=== PATIENT | male | born 1935 | race Caucasian/White ===

== ENCOUNTER 2016-08-22 03:25 | Inpatient (IN) | payer MEDICARE, MEDICAID ==
[~2016-08-22] VITALS: Ht 177.8 cm; Wt 99.6 kg
[2016-08-22] MEDS ORDERED: IPRATROPIUM 0.5MG/ALBUTEROL 2.5MG INH SOL UD 3ML (DUONEB)(J7620) As Ordered ONE ×3 (03:59→14:52)
[2016-08-22 04:48] LABS: BASO % 0.4 % (0.0-1.0); EOS # 0.1 K/mm3 (0.0-0.50); EOS % 1.1 % (0.0-3.0); LARGE UNSTAINED CELL # 0.2 K/mm3 (0.0-0.4); LARGE UNSTAINED CELL % 1.9 % (0.0-4.0); LYMPH # 0.9 K/mm3 (1.5-4.5); LYMPH % 8.1 % (24.0-44.0); MEAN CORPUSCULAR HEMOGLOBIN 31.7 pg (27.0-33.0); MEAN CORPUSCULAR HGB CONC 33.9 g/dl (32.0-36.5); MEAN CORPUSCULAR VOLUME 93.5 fl (80.0-96.0); MONO # 0.6 K/mm3 (0.0-0.8); MONO % 6.4 % (0.0-5.0); NEUTROPHILS # 7.6 K/mm3 (1.8-7.7); NEUTROPHILS % 82.2 % (36.0-66.0); PLATELET COUNT, AUTOMATED 166 k/mm3 (150-450); RED CELL DISTRIBUTION WIDTH 12.9 % (11.5-14.5); WHITE BLOOD COUNT 9.2 K/mm3 (4.0-10.0)
[2016-08-22 04:53] LABS: INR 1.01
[2016-08-22] MEDS ORDERED: ATENOLOL 25 MG TAB As Ordered ONE (04:59)
[2016-08-22 05:23] LABS: ANION GAP 9 MEQ/L (8-16); BLOOD UREA NITROGEN 20 MG/DL (7-18); CALCIUM LEVEL 8.3 MG/DL (8.8-10.2); CARBON DIOXIDE LEVEL 29 MEQ/L (21-32); CHLORIDE LEVEL 104 MEQ/L (98-107); CREATININE FOR GFR 1.78 MG/DL (0.70-1.30); GLOMERULAR FILTRATION RATE 39.2 (>35); GLUCOSE, FASTING 111 MG/DL (83-110); SODIUM LEVEL 142 MEQ/L (136-145)
--- NOTE | 2016-08-22 08:42 | REP ---
Clinical: Cough. Technique: AP and lateral. Comparison: 08/04/2011. Findings: Examination is limited by technique. Cardiomegaly cannot be excluded. Subtle bibasilar chronic changes are suggested and subtle superimposed atelectasis cannot be excluded. No definite effusion. No pneumothorax. Skeletal structures demonstrate age-related changes. Impression: Mild chronic stable changes. Cannot exclude trace superimposed atelectasis. Signed by David De Dios MD 08/22/2016 08:34 A
--- NOTE | 2016-08-22 08:46 | ECGEPIP ---
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
[2016-08-22 08:55] LABS: ALBUMIN 3.8 GM/DL (3.2-5.2); ALBUMIN/GLOBULIN RATIO 1.19 (1.00-1.93); ALKALINE PHOSPHATASE 88 U/L (45-117); ALT/SGPT 30 U/L (12-78); AST/SGOT 29 U/L (15-37); BILIRUBIN,DIRECT 0.1 MG/DL (0.0-0.2); BILIRUBIN,TOTAL 0.4 MG/DL (0.2-1.0)
[2016-08-22] MEDS ORDERED: DOXYCYCLINE HYCLATE 100 MG TAB PO SCH (09:00)
[2016-08-22] MEDS ORDERED: predniSONE 20 MG TAB PO SCH (09:00)
[2016-08-22] MEDS ORDERED: ONDANSETRON 4MG/2ML VIAL (J2405) IV PRN (09:30)
[2016-08-22] MEDS ORDERED: ALBUTEROL SULFATE 2.5 MG/0.5 ML INH NEB SOLN NEB PRN (09:30)
[2016-08-22] MEDS ORDERED: BISACODYL 5 MG TAB PO PRN (09:30)
[2016-08-22] MEDS ORDERED: BISACODYL 10 MG SUPP PR PRN (09:30)
[2016-08-22] MEDS ORDERED: ZOCO40TA PO (09:31)
[2016-08-22] MEDS ORDERED: PT COMMENT (09:31)
[2016-08-22 11:30] VITALS: BP 149/65
[2016-08-22 12:40] LABS: ABG BASE EXCESS 0.7 (-2.0-2.0); ABG HCO3 25.5 MEQ/L (22.0-26.0); ABG PARTIAL PRESSURE CO2 41.9 mmHg (35.0-45.0); ABG PARTIAL PRESSURE O2 64.8 mmHg (75.0-100.0); ABG STANDARD HCO3 24.9 MEQ/L (22.0-26.0); ABG TOTAL CO2 26.8 MEQ/L (23.0-31.0); ABG pH (ARTERIAL) 7.403 UNITS (7.350-7.450)
[2016-08-22] MEDS ORDERED: DOXYCYCLINE HYCLATE 100 MG TAB As Ordered ONE (12:53)
[2016-08-22] MEDS ORDERED: predniSONE 20 MG TAB As Ordered ONE ×2 (12:53→12:57)
[2016-08-22] MEDS ORDERED: ACETAMINOPHEN TAB 650MG DOSE (2X325MG) As Ordered ONE (12:53)
[2016-08-22] MEDS: ACETAMINOPHEN TAB 650MG DOSE (2X325MG) PO PRN (12:59)
--- NOTE | 2016-08-22 13:32 | REP ---
Clinical: Trauma. Fall. Technique: Two AP views of the pelvis. Findings: Age related enthesopathy and diffuse symmetric degenerative changes are appreciated. No obvious acute fracture or dislocation. Impression: Degenerative changes. No obvious acute fracture or dislocation. If the patient remains symptomatic consider CT of the pelvis for further investigation. Signed by David De Dios MD 08/22/2016 01:24 P
--- NOTE | 2016-08-22 13:57 | REP ---
Clinical: Syncope. Fall. Findings: Age-related atrophy and microvascular ischemic changes are appreciated. The ventricles and sulci are symmetric. Georges-white differentiation is maintained. There is no evidence for acute intracranial hemorrhage, mass/mass effect, pathology or infarction. No extra-axial fluid collection. Calvarium is intact. Paranasal sinuses and mastoid air cells are clear. Impression: Age related atrophy and microvascular ischemic changes. No acute intracranial hemorrhage, infarction, or mass/mass effect. Signed by David De Dios MD 08/22/2016 01:48 P
--- NOTE | 2016-08-22 14:03 | REP ---
Clinical: Fall. Syncope. Comparison: None. Findings: Lung gee are clear. No acute consolidation, nodule or mass lesion. No pleural effusion/reaction or pneumothorax. Tracheobronchial tree is patent. The mediastinum demonstrates atherosclerotic changes to the thoracic aorta and coronary arteries without aortic aneurysm or cardiomegaly. No pericardial effusion. No adenopathy. Surrounding musculoskeletal structures demonstrate age-related changes without acute fracture / dislocation. Impression: No acute mediastinal or pleuroparenchymal process. Signed by David De Dios MD 08/22/2016 01:54 P
[2016-08-22] MEDS: IPRATROPIUM 0.5MG/ALBUTEROL 2.5MG INH SOL UD 3ML (DUONEB)(J7620) NEB SCH ×2 (14:55→20:00)
--- NOTE | 2016-08-22 15:35 | EDDOCDS ---
Nurse's Notes [facility] Name: Jose Crabtree Age: 80 yrs Sex: Male : 1935 Arrival Date: 08/22/2016 Time: 03:25 Bed Admit Hold Private MD: Diagnosis: Muscle weakness (generalized) Presentation: 08/22 03:35 Presenting complaint: EMS states: pt got up to go to the bathroom and then all of a ko2 sudden got weak and couldn't walk anymore. When EMS arrived pt was on the floor and was still unable to stand up. Suicide/Homicide risk assessment- the patient denies having any suicidal and/or homicidal ideations and does not present with any other emotional, behavioral or mental health complaints. Status: Patient is not a sales agent protective service or dependent. Transition of care: patient was not received from another setting of care. Care prior to arrival: See EMS report. Glucose check. 94. 03:35 Acuity: BLANCA Level 3 ko2 03:35 Method Of Arrival: Ambulance ko2 03:47 Adult Sepsis Screening: The patient does not have new or worsening altered mentation. ko2 Patient's respiratory rate is less than 22. Systolic blood pressure is greater than 100. Patient has a qSOFA score of 0- Negative Sepsis Screen. Triage Assessment: 03:45 General: Appears in no apparent distress, Behavior is appropriate for age, cooperative. ko2 Pain: Denies pain. The patient is triaged at the bedside. See Assessment in Nurses Notes section of ED record. Neurological: Level of Consciousness is awake, alert. Cardiovascular: Heart tones S1 S2 present. Respiratory: Airway is patent Respiratory effort is even, unlabored, Respiratory pattern is regular, symmetrical, Breath sounds are diminished bilaterally. GI: Abdomen is obese, Bowel sounds present X 4 quads. Musculoskeletal: Range of motion intact in all extremities. Historical: - Allergies: Penicillins; - Home Meds: 1. simvastatin 40 mg Oral tab 2. 2 other pills he cant remember one being for BP - PMHx: Hypercholesterolemia; Hypertension; - PSHx: none; - Social history: Smoking status: Patient uses tobacco products, heavy tobacco smoker. No barriers to communication noted, The patient speaks fluent Macedonian, Speaks appropriately for age. - Family history: Not pertinent. - : The pt / caregiver states he / she is not on anticoagulants. Home medication list is obtained from the patient. - Exposure Risk Screening:: None identified. Screenin:46 Screening information is obtained from the patient. Fall risk: At risk due to age, ko2 prior history of falls. Assistance ADL's: requires no assistance with activities of daily living. Abuse/DV Screen: The patient / caregiver reports he/she is: not in a situation that causes fear, pain or injury. Nutritional screening: No deficits noted. Advance Directives: Currently, there is no health care proxy. There is no active DNR order. There is no living will. There is no Power of [place]. home support is adequate. Assessment: 03:46 General: See triage assessment. ko2 04:47 General: Appears in no apparent distress, comfortable, Behavior is appropriate for age, ko2 cooperative. Pain: Denies pain. Neurological: Level of Consciousness is awake, alert. Respiratory: Airway is patent Respiratory effort is even, unlabored. Derm: Skin is normal. 05:45 General: Appears in no apparent distress, comfortable, Behavior is appropriate for age, ko2 cooperative. Pain: Denies pain. Neurological: Level of Consciousness is awake, alert. Respiratory: Airway is patent Respiratory effort is even, unlabored. Derm: Skin is normal. 06:25 General: Appears in no apparent distress, comfortable, Behavior is appropriate for age, ko2 cooperative. Pain: Denies pain. Neurological: Level of Consciousness is awake, alert. Respiratory: Airway is patent Respiratory effort is even, unlabored. Derm: Skin is normal. 07:26 General: Appears in no apparent distress, comfortable, Behavior is appropriate for age, pml cooperative. Pain: Denies pain. Neurological: Level of Consciousness is awake, alert, Oriented to person, place, time. Cardiovascular: Capillary refill < 3 seconds. Respiratory: Airway is patent Respiratory effort is even, unlabored. Derm: Skin is pink, warm & dry. 08:22 General: attempted to ambulate pt, pt unable to stand with maximal assistance. pt pml unable to sit to side of bed independently. MD Gonzalez aware . 09:06 General: Appears in no apparent distress, comfortable, unkempt. Neurological: Level of pml Consciousness is awake, alert, Oriented to person, place, time. Cardiovascular: Capillary refill < 3 seconds. Respiratory: Airway is patent Respiratory effort is even, unlabored. Derm: Skin is pink, warm & dry. 10:07 General: Appears in no apparent distress, comfortable, unkempt, Behavior is jo3 cooperative. Neurological: Level of Consciousness is awake, alert. Respiratory: Airway is patent Respiratory effort is even, unlabored. Derm: Skin is pink, warm & dry. Vital Signs: 03:36 BP 188 / 88; Pulse 113; Resp 20; Temp 99.5(O); Pulse Ox 95% on R/A; Weight 90.72 kg sonal (R); Height 5 ft. 10 in. (177.80 cm); Pain 0/10; 03:47 Pulse 110 MON; Pulse Ox 92% ; ko2 03:48 BP 204 / 87 (auto/); ko2 04:03 BP 193 / 86 (auto/); ko2 04:08 Pulse 108 MON; ko2 04:18 BP 205 / 106 (auto/); ko2 04:18 Pulse 108 MON; ko2 04:48 BP 178 / 83 (auto/); ko2 04:49 Pulse 114 MON; ko2 05:07 BP 141 / 94 (auto/); ko2 05:07 Pulse 114 MON; Pulse Ox 94% ; ko2 05:18 BP 203 / 86 (auto/); ko2 05:18 Pulse 112 MON; Pulse Ox 94% ; ko2 05:23 Pulse 112 MON; Pulse Ox 95% ; pml 05:32 Pulse 100 MON; Pulse Ox 90% ; ko2 05:33 BP 187 / 80 (auto/); ko2 05:48 BP 173 / 79 (auto/); ko2 05:49 Pulse 96 MON; ko2 06:03 BP 199 / 87 (auto/); ko2 06:03 Pulse 90 MON; ko2 07:09 BP 183 / 88 (auto/); pml 07:11 Pulse 84 MON; Pulse Ox 95% ; pml 07:36 BP 186 / 79 (auto/); pml 07:36 Pulse 84 MON; pml 07:39 Pulse 84 MON; Pulse Ox 94% ; pml 07:39 BP 183 / 79 (auto/); pml 07:54 BP 199 / 86 (auto/); pml 07:55 Pulse 88 MON; pml 08:20 BP 188 / 92 (auto/); pml 08:20 Pulse 92 MON; Pulse Ox 92% ; pml 08:24 BP 181 / 90 (auto/); pml 08:25 Pulse 84 MON; Pulse Ox 95% ; pml 08:39 BP 193 / 88 (auto/); pml 08:40 Pulse 84 MON; pml 08:54 BP 191 / 91 (auto/); pml 08:55 Pulse 84 MON; pml 03:36 Body Mass Index 28.70 (90.72 kg, 177.80 cm) sonal Vitals: 03:47 Log In Time N/A - ambulance arrival. ko2 ED Course: 03:27 Patient visited by Marga Barragan, Zipper Slide Attacher. ml3 03:27 Patient moved to Waiting ml3 03:29 Claire James,RN is Primary Nurse. ml3 03:29 Patient moved to 9 ml3 03:36 Patient visited by Obdulia Sánchez PCA. sonal 03:37 Triage Initiated ko2 03:49 Lolly Gonzalez DO is Attending Physician. mm11 03:51 Patient visited by Lolly Gonzalez DO. mm11 03:54 Patient visited by Lolly Gonzalez DO. mm11 04:08 Patient visited by Obdulia Sánchez PCA. sonal 04:08 EKG done. (by ED staff). Reviewed by Lolly Gonzalez DO. sonal 04:40 B-Type Natiuretic Peptide Sent. rw1 04:40 Basic Metabolic Profile Sent. rw1 04:40 CBC with Diff Sent. rw1 04:40 Cardiac Injury Profile Sent. rw1 04:41 Partial Thromboplastin Time Sent. rw1 04:41 Prothrombin Time Profile\E\INR Sent. rw1 04:41 Troponin Sent. rw1 04:41 Inserted saline lock: 20 gauge in right antecubital area and blood collected. The rw1 patient tolerated the procedure well. 04:44 Patient visited by Rommel Carias LPN. rw1 04:47 Patient name changed from Jose\S\\S\Devin\S\ to Jose\S\C\S\[place]. EDMS 04:51 [place] was scanned into [employer] and attached to record. pm4 05:45 Patient visited by Claire James RN. ko2 06:27 Patient visited by Claire James RN. ko2 07:27 Patient visited by Leslie Lara RN. pml 07:44 Patient visited by Segun Lawson PCA. jlf 08:21 Patient visited by Lolly Gonzalez DO. mm11 08:23 Patient visited by Leslie Lara,ANDREW. pml 09:07 Patient visited by Leslie Lara,ANDREW. pml 09:09 Jessica Og is Hospitalizing Provider. mm11 09:12 EKG-ADULT Returned. EDMS 09:13 Chest, 2 View (pa\E\lat) Returned. EDMS 09:57 Patient moved to Admit Hold kpj 10:08 Patient visited by Nereida Gutierrez,ANDREW. jo3 11:07 Patient moved to 21 kpj 11:26 Patient moved to Admit Hold kpj 11:44 Primary Nurse role handed off by Claire James RN kr3 13:53 Pelvis, complete Returned. EDMS 14:31 CT Head without contrast Returned. EDMS 14:31 CT Chest without contrast Returned. EDMS Administered Medications: 04:02 Drug: Albuterol-Ipratropium 3 ml [ipratropium-albuterol 0.5 mg-3 mg(2.5 mg base)/3 mL jh6 nebulization soln (3 mL)] Route: Inhalation; 04:24 Drug: Albuterol-Ipratropium 3 ml [ipratropium-albuterol 0.5 mg-3 mg(2.5 mg base)/3 mL jh6 nebulization soln (3 mL)] Route: Inhalation; 05:03 Drug: Atenolol 25 mg [atenolol 25 mg tablet (1 tabs)] Route: PO; ko2 RT: 04:02 Initial Med Neb Given as ordered Patient was instructed and evaluated on procedure jh6 Patient tolerated procedure well without adverse effect. Respiratory: Airway is patent Respiratory effort is even, unlabored, Respiratory pattern is regular symmetrical, Breath sounds are diminished in right upper lobe, left upper lobe, right middle lobe, left lower lobe, right lower lobe, left posterior upper lobe, right posterior upper lobe, left posterior lower lobe, right posterior middle lobe and right posterior lower lobe. 04:09 Respiratory: Airway is patent Respiratory effort is even, unlabored, Respiratory jh6 pattern is regular symmetrical, Breath sounds with rhonchi in right upper lobe, left upper lobe, right middle lobe, left lower lobe, right lower lobe, left posterior upper lobe, right posterior upper lobe, left posterior lower lobe, right posterior middle lobe and right posterior lower lobe Breath sounds are diminished in right upper lobe, left upper lobe, right middle lobe, left lower lobe, right lower lobe, left posterior upper lobe, right posterior upper lobe, left posterior lower lobe, right posterior middle lobe and right posterior lower lobe. 04:24 Subsequent Med Neb Given as ordered Patient was reinforced on procedure Patient jh6 tolerated procedure well without adverse effect. Respiratory: Airway is patent Respiratory effort is even, unlabored, Respiratory pattern is regular symmetrical, Breath sounds with crackles in right upper lobe, left upper lobe and right middle lobe Breath sounds are diminished in right upper lobe, left upper lobe, right middle lobe, left lower lobe and right lower lobe. 04:34 Respiratory: Breath sounds are coarse in right upper lobe, left upper lobe, right jh6 middle lobe, left lower lobe and right lower lobe. Respiratory: Airway is patent Respiratory effort is even, unlabored, Respiratory pattern is regular symmetrical. Order Results: Lab Order: B-Type Natiuretic Peptide; SPEC'M 08/22/16 04:38 Test: BRAIN NATRIURETIC PEPTIDE; Value: 42.6; Range: <100; Units: PG/ML; Status: F Lab Order: Basic Metabolic Profile; SPEC'M 08/22/16 04:38 Test: GLUCOSE, FASTING; Value: 111; Range: 83-110; Abnormal: Above high normal; Units: MG/DL; Status: F Test: BLOOD UREA NITROGEN; Value: 20; Range: 7-18; Abnormal: Above high normal; Units: MG/DL; Status: F Test: CREATININE FOR GFR; Value: 1.78; Range: 0.70-1.30; Abnormal: Above high normal; Units: MG/DL; Status: F Test: GLOMERULAR FILTRATION RATE; Value: 39.2; Range: >35; Status: F Test: SODIUM LEVEL; Value: 142; Range: 136-145; Units: MEQ/L; Status: F Test: POTASSIUM SERUM; Value: 4.0; Range: 3.5-5.1; Units: MEQ/L; Status: F Test: CHLORIDE LEVEL; Value: 104; Range: 98-107; Units: MEQ/L; Status: F Test: CARBON DIOXIDE LEVEL; Value: 29; Range: 21-32; Units: MEQ/L; Status: F Test: ANION GAP; Value: 9; Range: 8-16; Units: MEQ/L; Status: F Test: CALCIUM LEVEL; Value: 8.3; Range: 8.8-10.2; Abnormal: Below low normal; Units: MG/DL; Status: F Test Note: ; Units are mL/min/1.73 m2 Chronic Kidney Disease Staging per NKF: Stage I & II GFR >=60 Normal to Mildly Decreased Stage III GFR 30-59 Moderately Decreased Stage IV GFR 15-29 Severely Decreased Stage V GFR <15 Very Little GFR Left ESRD GFR <15 on ORTHOPEDIC CODER Lab Order: CBC with Diff; SPEC'M 08/22/16 04:38 Test: WHITE BLOOD COUNT; Value: 9.2; Range: 4.0-10.0; Units: K/mm3; Status: F Test: RED BLOOD COUNT; Value: 4.99; Range: 4.30-6.10; Units: M/mm3; Status: F Test: HEMOGLOBIN; Value: 15.8; Range: 14.0-18.0; Units: g/dl; Status: F Test: HEMATOCRIT; Value: 46.6; Range: 42.0-52.0; Units: %; Status: F Test: MEAN CORPUSCULAR VOLUME; Value: 93.5; Range: 80.0-96.0; Units: fl; Status: F Test: MEAN CORPUSCULAR HEMOGLOBIN; Value: 31.7; Range: 27.0-33.0; Units: pg; Status: F Test: MEAN CORPUSCULAR HGB CONC; Value: 33.9; Range: 32.0-36.5; Units: g/dl; Status: F Test: RED CELL DISTRIBUTION WIDTH; Value: 12.9; Range: 11.5-14.5; Units: %; Status: F Test: PLATELET COUNT, AUTOMATED; Value: 166; Range: 150-450; Units: k/mm3; Status: F Test: NEUTROPHILS %; Value: 82.2; Range: 36.0-66.0; Abnormal: Above high normal; Units: %; Status: F Test: LYMPH %; Value: 8.1; Range: 24.0-44.0; Abnormal: Below low normal; Units: %; Status: F Test: MONO %; Value: 6.4; Range: 0.0-5.0; Abnormal: Above high normal; Units: %; Status: F Test: EOS %; Value: 1.1; Range: 0.0-3.0; Units: %; Status: F Test: BASO %; Value: 0.4; Range: 0.0-1.0; Units: %; Status: F Test: LARGE UNSTAINED CELL %; Value: 1.9; Range: 0.0-4.0; Units: %; Status: F Test: NEUTROPHILS #; Value: 7.6; Range: 1.8-7.7; Units: K/mm3; Status: F Test: LYMPH #; Value: 0.9; Range: 1.5-4.5; Abnormal: Below low normal; Units: K/mm3; Status: F Test: MONO #; Value: 0.6; Range: 0.0-0.8; Units: K/mm3; Status: F Test: EOS #; Value: 0.1; Range: 0.0-0.50; Units: K/mm3; Status: F Test: BASO #; Value: 0.0; Range: 0.0-0.2; Units: K/mm3; Status: F Test: LARGE UNSTAINED CELL #; Value: 0.2; Range: 0.0-0.4; Units: K/mm3; Status: F Lab Order: Cardiac Injury Profile; SPEC' 08/22/16 04:38 Test: CPK CREATINE PHOSPHOKINASE; Value: 81; Range: 39-308; Units: U/L; Status: F Test: CK-MB VALUE MASS; Value: 1.1; Range: 0.0-3.6; Units: NG/ML; Status: F Test: MB/CK RELATIVE INDEX; Value: 1.35; Range: < OR =4; Status: F Test Note: ; DIAGNOSIS CRITERIA MMB ng/ml Relative Index (RI) NON-AMI < or = 5 N/A GEORGES ZONE > 5 < or = 4 AMI > 5 > 4 Lab Order: Partial Thromboplastin Time; SPEC'M 08/22/16 04:38 Test: PARTIAL THROMBOPLASTIN TIME; Value: 28.9; Range: 26.6-37.1; Units: SECONDS; Status: F Lab Order: Prothrombin Time Profile\E\INR; SPEC'M 08/22/16 04:38 Test: PROTHROMBIN TIME; Value: 13.4; Range: 12.3-14.5; Units: SECONDS; Status: F Test: INR; Value: 1.01; Status: F Test Note: ; THERAPUTIC HUMAN INR VALUES INDICATIONS NORMAL RANGES PROPHYLAXIS/TREATMENT OF: VENOUS THROMBOSIS 2.0-3.0 PULMONARY EMBOLISM 2.0-3.0 PREVENTION OF SYSTEMIC EMBOLISM FROM: TISSUE HEART VALVES 2.0-3.0 ACUTE MYOCARDIAL INFARCTION 2.0-3.0 VALVULAR HEART DISEASE 2.0-3.0 ATRIAL FIBRILLATION 2.0-3.0 MECHANICAL VALVES(HIGH RISK) 2.5-3.5 RECURRENT MYOCARDIAL INFARCTION 2.5-3.5 Lab Order: Troponin; [facility]' 08/22/16 04:38 Test: TROPONIN I; Value: < 0.02; Range: < 0.10; Units: NG/ML; Status: F Test Note: ; Troponin I Reference Interval for [employer] LOCI: 99th Percentile= 0.00-0.045 ng/ml Risk Stratification: <= 0.10 ng/ml Decreased Risk for Adverse Clinical Events. 0.10-1.50 ng/ml Increased Risk for Adverse Clinical Events. Evaluation of additional criterion and/or repeat testing in 2-6 hours is suggested to rule out myocardial damage. >= 1.50 ng/ml Indicative of Myocardial Injury. Lab Order: LIVER PROFILE; [facility]' 08/22/16 04:38 Test: AST/SGOT; Value: 29; Range: 15-37; Units: U/L; Status: F Test: ALT/SGPT; Value: 30; Range: 12-78; Units: U/L; Status: F Test: ALKALINE PHOSPHATASE; Value: 88; Range: 45-117; Units: U/L; Status: F Test: BILIRUBIN,TOTAL; Value: 0.4; Range: 0.2-1.0; Units: MG/DL; Status: F Test: BILIRUBIN,DIRECT; Value: 0.1; Range: 0.0-0.2; Units: MG/DL; Status: F Test: TOTAL PROTEIN; Value: 7.0; Range: 6.4-8.2; Units: GM/DL; Status: F Test: ALBUMIN; Value: 3.8; Range: 3.2-5.2; Units: GM/DL; Status: F Test: ALBUMIN/GLOBULIN RATIO; Value: 1.19; Range: 1.00-1.93; Status: F Lab Order: ARTERIAL BLOOD GAS; SPEC'M 08/22/16 12:31 Test: ABG pH (ARTERIAL); Value: 7.403; Range: 7.350-7.450; Units: UNITS; Status: F Test: ABG PARTIAL PRESSURE CO2; Value: 41.9; Range: 35.0-45.0; Units: mmHg; Status: F Test: ABG PARTIAL PRESSURE O2; Value: 64.8; Range: 75.0-100.0; Abnormal: Below low normal; Units: mmHg; Status: F Test: ABG TOTAL CO2; Value: 26.8; Range: 23.0-31.0; Units: MEQ/L; Status: F Test: ABG HCO3; Value: 25.5; Range: 22.0-26.0; Units: MEQ/L; Status: F Test: ABG BASE EXCESS; Value: 0.7; Range: -2.0-2.0; Status: F Test: ABG STANDARD HCO3; Value: 24.9; Range: 22.0-26.0; Units: MEQ/L; Status: F Test: ABG O2 SATURATION; Value: 93.5; Range: 95.0-99.0; Abnormal: Below low normal; Units: %; Status: F Radiology Order: Chest, 2 View (pa\E\lat) Test: Chest, 2 View (pa\E\lat) REASON FOR EXAMINATION: Cough; Clinical: Cough.; ; Technique: AP and lateral.; ; Comparison: 08/04/2011.; ; Findings:; Examination is limited by technique. Cardiomegaly cannot be excluded. Subtle; bibasilar chronic changes are suggested and subtle superimposed atelectasis; cannot be excluded. No definite effusion. No pneumothorax. Skeletal structures; demonstrate age-related changes.; ; Impression:; Mild chronic stable changes. 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 Fall.; ; Technique: Two AP views of the pelvis.; ; Findings: Age related enthesopathy and diffuse symmetric degenerative changes; are appreciated. No obvious acute fracture or dislocation.; ; Impression:; Degenerative changes. No obvious acute fracture or dislocation. If the patient; remains symptomatic consider CT of the pelvis for further investigation.; ; ; Signed by; David De Dios MD 08/22/2016 01:24 P; Radiology Order: CT Head without contrast Test: CT Head without contrast REASON FOR EXAMINATION: fall and syncope; Clinical: Syncope. Fall.; ; Findings:; Age-related atrophy and microvascular ischemic changes are appreciated. The; ventricles and sulci are symmetric. Georges-white differentiation is maintained.; There is no evidence for acute intracranial hemorrhage, mass/mass effect,; pathology or infarction. No extra-axial fluid collection. Calvarium is intact.; Paranasal sinuses and mastoid air cells are clear.; ; Impression:; Age related atrophy and microvascular ischemic changes.; No acute intracranial hemorrhage, infarction, or mass/mass effect.; ; ; Signed by; David De Dios MD 08/22/2016 01:48 P; Radiology Order: CT Chest without contrast Test: CT Chest without contrast REASON FOR EXAMINATION: fall and syncope; Clinical: Fall. Syncope.; ; Comparison: None.; ; Findings:; Lung gee are clear. No acute consolidation, nodule or mass lesion. No; pleural effusion/reaction or pneumothorax. Tracheobronchial tree is patent. The; mediastinum demonstrates atherosclerotic changes to the thoracic aorta and; coronary arteries without aortic aneurysm or cardiomegaly. No pericardial; effusion. No adenopathy. Surrounding musculoskeletal structures demonstrate; age-related changes without acute fracture / dislocation.; ; Impression:; No acute mediastinal or pleuroparenchymal process.; ; ; Signed by; David De Dios MD 08/22/2016 01:54 P; Outcome: 09:09 Decision to Hospitalize by Provider. mm11 15:34 Patient left the ED. ar3 Signatures: Dispatcher [employer] EDMS Ifeoma Palacio, RN RN kpj Marga Barragan, Zipper Slide Attacher Unit ml3 Lucina Kamara,RN RN kr3 Nereida Gutierrez,RN RN jo3 Rommel Carias,CARBON FURNACE OPERATOR CARBON FURNACE OPERATOR rw1 Lolly Gonzalez, DO mm11 Becky Chandler, BUNDLE PACKER BUNDLE PACKER ar3 Obdulia Sánchez, BUNDLE PACKER BUNDLE PACKER sonal Ricki Deleon jh6 Leslie Lara,RN RN Segun Smith, BUNDLE PACKER BUNDLE PACKER Claire Rosa,RN RN ko2 Javi Oglesby, Reg Reg pm4 MTDD
--- NOTE | 2016-08-22 15:35 | EDDOCDS ---
Physician Documentation [facility] Name: Jose Beltran Age: 80 yrs Sex: Male : 1935 Arrival Date: 08/22/2016 Time: 03:25 Bed Admit Hold Private MD: Disposition: 08/22/16 09:09 Hospitalization ordered by Jessica Og for Inpatient Admission. Preliminary diagnosis is Muscle weakness (generalized). - Bed requested for 4 [place]. - Status is Inpatient Admission. ar3 - Condition is Stable. - Problem is an acute exacerbation. - Symptoms have improved. Historical: - Allergies: Penicillins; - Home Meds: 1. simvastatin 40 mg Oral tab 2. 2 other pills he cant remember one being for BP - PMHx: Hypercholesterolemia; Hypertension; - PSHx: none; - Social history: Smoking status: Patient uses tobacco products, heavy tobacco smoker. No barriers to communication noted, The patient speaks fluent [place], Speaks appropriately for age. - Family history: Not pertinent. - : The pt / caregiver states he / she is not on anticoagulants. Home medication list is obtained from the patient. - Exposure Risk Screening:: None identified. Vital Signs: 08/22 03:36 BP 188 / 88; Pulse 113; Resp 20; Temp 99.5(O); Pulse Ox 95% on R/A; Weight 90.72 kg / sonal 200 lbs (R); Height 5 ft. 10 in. (177.80 cm); Pain 0/10; 03:47 Pulse 110 MON; Pulse Ox 92% ; ko2 03:48 BP 204 / 87 (auto/); ko2 04:03 BP 193 / 86 (auto/); ko2 04:08 Pulse 108 MON; ko2 04:18 BP 205 / 106 (auto/); ko2 04:18 Pulse 108 MON; ko2 04:48 BP 178 / 83 (auto/); ko2 04:49 Pulse 114 MON; ko2 05:07 BP 141 / 94 (auto/); ko2 05:07 Pulse 114 MON; Pulse Ox 94% ; ko2 05:18 BP 203 / 86 (auto/); ko2 05:18 Pulse 112 MON; Pulse Ox 94% ; ko2 05:23 Pulse 112 MON; Pulse Ox 95% ; pml 05:32 Pulse 100 MON; Pulse Ox 90% ; ko2 05:33 BP 187 / 80 (auto/); ko2 05:48 BP 173 / 79 (auto/); ko2 05:49 Pulse 96 MON; ko2 06:03 BP 199 / 87 (auto/); ko2 06:03 Pulse 90 MON; ko2 07:09 BP 183 / 88 (auto/); pml 07:11 Pulse 84 MON; Pulse Ox 95% ; pml 07:36 BP 186 / 79 (auto/); pml 07:36 Pulse 84 MON; pml 07:39 Pulse 84 MON; Pulse Ox 94% ; pml 07:39 BP 183 / 79 (auto/); pml 07:54 BP 199 / 86 (auto/); pml 07:55 Pulse 88 MON; pml 08:20 BP 188 / 92 (auto/); pml 08:20 Pulse 92 MON; Pulse Ox 92% ; pml 08:24 BP 181 / 90 (auto/); pml 08:25 Pulse 84 MON; Pulse Ox 95% ; pml 08:39 BP 193 / 88 (auto/); pml 08:40 Pulse 84 MON; pml 08:54 BP 191 / 91 (auto/); pml 08:55 Pulse 84 MON; pml 03:36 Body Mass Index 28.70 (90.72 kg, 177.80 cm) sonal MDM: 03:55 Forensic Materials Engineer/Pulse Ox/q 30 min VS ordered. mm11 03:55 IV Saline Lock ordered. mm11 03:55 Rhythm Strip to chart ordered. mm11 03:55 Undress patient appropriately for examination ordered. mm11 03:55 Albuterol-Ipratropium 3 ml Inhalation once ordered. mm11 03:55 Call Respiratory ordered. mm11 03:56 B-Type Natiuretic Peptide Ordered. EDMS 03:56 Basic Metabolic Profile Ordered. EDMS 03:56 CBC with Diff Ordered. EDMS 03:56 Cardiac Injury Profile Ordered. EDMS 03:56 Partial Thromboplastin Time Ordered. EDMS 03:56 Prothrombin Time Profile\E\INR Ordered. EDMS 03:56 Troponin Ordered. EDMS 03:57 Chest, 2 View (pa\E\lat) Ordered. EDMS 03:57 ECG WITH READING ER PHYS+CARDIAG ordered. EDMS 03:57 Call Respiratory complete. ml3 04:12 Albuterol-Ipratropium 3 ml Inhalation once ordered. jh6 04:32 Financial registration complete. pm4 04:51 [facility] Payment Agreement was scanned into [employer] and attached to record. pm4 04:57 CBC with Diff Reviewed. mm11 04:57 Partial Thromboplastin Time Reviewed. mm11 04:57 Prothrombin Time Profile\E\INR Reviewed. mm11 04:58 Atenolol 25 mg PO once ordered. mm11 05:27 Basic Metabolic Profile Reviewed. mm11 05:27 B-Type Natiuretic Peptide Reviewed. mm11 05:27 Cardiac Injury Profile Reviewed. mm11 05:27 Troponin Reviewed. mm11 05:44 [facility] Order ordered. mm11 06:03 [facility] Tax[facility] Order complete. ml3 07:41 Ambulate Patient to Assess Patient Safety ordered. mm11 08:22 BED REQUEST+ADM ordered. EDMS 08:38 LIVER PROFILE Ordered. EDMS 09:28 ARTERIAL BLOOD GAS Ordered. EDMS 09:32 Admission / Observation Status ordered. EDMS 09:32 REGULAR DIET ordered. EDMS 09:33 PHYSICAL THERAPY EVAL & TREAT ordered. EDMS 12:26 RESPIRATORY PANEL Ordered. EDMS 12:42 Pelvis, complete Ordered. EDMS 13:08 CT Head without contrast Ordered. EDMS 13:08 CT Chest without contrast Ordered. EDMS 13:18 URINALYSIS Ordered. EDMS 13:18 URINE CULTURE Ordered. EDMS 13:18 BLOOD CULTURES Ordered. EDMS Administered Medications: 04:02 Drug: Albuterol-Ipratropium 3 ml [ipratropium-albuterol 0.5 mg-3 mg(2.5 mg base)/3 mL 6 nebulization soln (3 mL)] Route: Inhalation; 04:24 Drug: Albuterol-Ipratropium 3 ml [ipratropium-albuterol 0.5 mg-3 mg(2.5 mg base)/3 mL 6 nebulization soln (3 mL)] Route: Inhalation; 05:03 Drug: Atenolol 25 mg [atenolol 25 mg tablet (1 tabs)] Route: PO; ko2 Signatures: Dispatcher [employer] EDMS LaurelJoselynzabeth, Manager Operations Unit ml3 Ady Gonzalez DO DO mm11 Becky Chandler, DESIGN ANALYST DESIGN ANALYST ar3 Ricki Deleon jh6 Leslie Lara RN RN pml Ogden, Kari, RN RN ko2 Javi Oglesby, Reg Reg pm4 The chart was reviewed and I authenticate all verbal orders and agree with the evaluation and treatment provided.Corrections: (The following items were deleted from the chart) 08:39 08:32 LIVER PROFILE ordered. EDMS EDMS Attachments: 04:51 [facility] Payment Agreement pm4 MTDD
[2016-08-22 15:45] VITALS: BP 160/70
[2016-08-22] MEDS ORDERED: OXAZEPAM 10 MG CAP PO PRN (17:45)
[2016-08-22] MEDS ORDERED: **hydrALAZINE** 10 MG TAB PO ONE (18:30)
[2016-08-22] MEDS: methylPREDNISolone INJ 40 MG/1 ML VIAL (J2920) IV SCH (18:35)
[2016-08-22] MEDS: OXAZEPAM 15 MG CAP PO SCH (18:36)
[2016-08-22] MEDS: MULTIVITAMINS/MINERALS THERAP 1 TAB PO SCH (18:40)
[2016-08-22] MEDS: THIAMINE 100 MG TAB PO SCH (18:40)
[2016-08-22] MEDS: NICOTINE 21MG/24HR 1 EA TRANSDERMAL TD SCH (18:40)
[2016-08-22] MEDS: FOLIC ACID 1 MG TAB PO SCH (18:41)
[2016-08-22 19:00] VITALS: BP 180/86
[2016-08-22] MEDS ORDERED: LevoFLOXacin IV 500 MG in APPROPRIATE DILUENT 1 EA IV ONE (19:00)
[2016-08-22] MEDS: OSELTAMIVIR 6 MG/ML 60ML SUSP PO SCH (21:55)
[2016-08-22] MEDS: guaiFENesin ER 600 MG TAB PO SCH (21:55)
[2016-08-22] MEDS: SENOKOT S TAB PO SCH (21:55)
[2016-08-22] MEDS: TAMSULOSIN 0.4 MG CAP PO SCH (21:55)
[2016-08-22] MEDS: LR 1,000 ML IV SCH (21:56)
[2016-08-23] VITALS (9 sets, daily range): BP systolic 140–180; BP diastolic 61–90
[2016-08-23] MEDS: BUDESONIDE 0.5 MG/2 ML INHALATION SUSPENSION INH SCH ×3 (00:20→20:19)
[2016-08-23] MEDS: IPRATROPIUM 0.5MG/ALBUTEROL 2.5MG INH SOL UD 3ML (DUONEB)(J7620) NEB SCH ×4 (00:20→20:19)
[2016-08-23] MEDS: OXAZEPAM 15 MG CAP PO SCH ×3 (00:35→10:18)
[2016-08-23 03:25] LABS: CALCIUM OXALATE CRYSTALS SMALL
[2016-08-23 03:33] LABS: AMPHETAMINES URINE REFLEX NEGATIVE (NEGATIVE); BARBITURATES URINE REFLEX NEGATIVE (NEGATIVE); BENZODIAZEPINES URINE REFLEX POSITIVE (NEGATIVE); COCAINE METABOLITE URINE REFLE NEGATIVE (NEGATIVE); METHADONE URINE REFLEX NEGATIVE (NEGATIVE); OPIATES URINE REFLEX POSITIVE (NEGATIVE)
[2016-08-23 03:44] LABS: OSMOLALITY URINE 758 MOSM/KG (500-800)
[2016-08-23 05:21] LABS: BASO % 0.2 % (0.0-1.0); EOS # 0.1 K/mm3 (0.0-0.50); EOS % 0.6 % (0.0-3.0); LARGE UNSTAINED CELL # 0.1 K/mm3 (0.0-0.4); LARGE UNSTAINED CELL % 0.8 % (0.0-4.0); LYMPH # 0.6 K/mm3 (1.5-4.5); LYMPH % 5.8 % (24.0-44.0); MEAN CORPUSCULAR HEMOGLOBIN 30.3 pg (27.0-33.0); MEAN CORPUSCULAR HGB CONC 32.7 g/dl (32.0-36.5); MEAN CORPUSCULAR VOLUME 92.6 fl (80.0-96.0); MONO # 0.5 K/mm3 (0.0-0.8); MONO % 5.2 % (0.0-5.0); NEUTROPHILS # 8.1 K/mm3 (1.8-7.7); NEUTROPHILS % 87.5 % (36.0-66.0); PLATELET COUNT, AUTOMATED 142 k/mm3 (150-450); RED CELL DISTRIBUTION WIDTH 12.9 % (11.5-14.5); WHITE BLOOD COUNT 9.3 K/mm3 (4.0-10.0)
[2016-08-23] MEDS: methylPREDNISolone INJ 40 MG/1 ML VIAL (J2920) IV SCH ×3 (05:32→20:28)
[2016-08-23 05:39] LABS: CALCIUM LEVEL 8.2 MG/DL (8.8-10.2); CREATININE FOR GFR 1.61 MG/DL (0.70-1.30); GLOMERULAR FILTRATION RATE 44.1 (>35); MAGNESIUM LEVEL 2.1 MG/DL (1.8-2.4); POTASSIUM SERUM 3.9 MEQ/L (3.5-5.1)
--- NOTE | 2016-08-23 08:22 | REP ---
Clinical: Acute renal insufficiency. Technique: Real time marshall scale ultrasound examination using curved array transducer. Findings: Bilateral kidneys are normal in contour, size, echogenicity, and reniform shape without hydronephrosis, nephrolithiasis, renal mass lesion or perinephric fluid collection. Right kidney measures 11.2 x 5.1 x 5.9 cm with 2.6 cm simple mid pole cyst. Left kidney measures 11.0 x 5.5 x 6.1 cm with 4.1 cm simple upper pole cyst. Dumont catheter identified in collapsed bladder. Impression: Solitary bilateral renal cysts. Otherwise normal renal ultrasound. Signed by David De Dios MD 08/23/2016 08:13 A
[2016-08-23] MEDS: NICOTINE 21MG/24HR 1 EA TRANSDERMAL TD SCH (10:17)
[2016-08-23] MEDS: ENOXAPARIN 30 MG/0.3 ML SYR (J1650) SC SCH (10:18)
[2016-08-23] MEDS: OSELTAMIVIR 6 MG/ML 60ML SUSP PO SCH ×2 (10:18→20:29)
[2016-08-23] MEDS: THIAMINE 100 MG TAB PO SCH (10:18)
[2016-08-23] MEDS: FOLIC ACID 1 MG TAB PO SCH (10:19)
[2016-08-23] MEDS: guaiFENesin ER 600 MG TAB PO SCH ×2 (10:19→20:29)
[2016-08-23] MEDS: SENOKOT S TAB PO SCH ×2 (10:19→20:29)
[2016-08-23] MEDS: MULTIVITAMINS/MINERALS THERAP 1 TAB PO SCH (10:19)
[2016-08-23] MEDS: LR 1,000 ML IV SCH (10:20)
--- NOTE | 2016-08-23 14:45 | HPE ---
DATE OF ADMISSION: 08/22/2016 PRIMARY CARE PROVIDER: At the 's Administration ([place]). CHIEF COMPLAINT: As per emergency medical services (EMS), patient got up to go to the bathroom, then all of a sudden his legs got weak, and he could not walk anymore and fell down and activated his Life Alert, so was brought here for fall and inability to ambulate. PAST MEDICAL HISTORY: 1. Chronic kidney disease (CKD), stage III, with baseline creatinine of around 1.7 from 2015. 2. Benign prostatic hypertrophy (BPH). 3. Hyperlipidemia. 4. Hypertension. 5. Chronic obstructive pulmonary disease (COPD). 6. Dupuytren's contracture. 7. Generalized anxiety disorder. 8. Tubular adenoma of the colon. 9. Chronic anemia. 10. Obesity. 11. Chronic low back pain. 12. Right radiculopathy. 13. Spinal stenosis in the lumbar region. HISTORY OF PRESENT ILLNESS: This is an 80-year-old male who was brought into the emergency room by EMS after he activated his Life Alert button. Apparently patient was sleeping in his recliner chair yesterday. In the middle of the night, got up to go to the bathroom and suddenly felt his legs weaken and fell down and alerted his Life Alert. EMS came to his house, found him on the floor unable to stand up, so was brought here to the emergency room for evaluation. Patient denied loss of consciousness, however, could not give a clear story about how he fell down. In the emergency department (ED), patient initially refused to stay; however, when the ED personnel tried to mobilize him and help him ambulate, it was found that he could not even stand up even with assist. Subsequently, during his stay in the ED, patient developed a low-grade temperature of 100.5. The hospitalist service was consulted for admission for fall, inability to ambulate, and fever. PAST SURGICAL HISTORY: 1. Back surgery. 2. Lumbar laminectomy and bilateral foraminotomies. 3. Right inguinal hernia repair. 4. Allergies to PENICILLIN. SOCIAL HISTORY: Patient is a smoker. Smokes about two packs per day. Drinks alcohol about one to two drinks per day. FAMILY HISTORY: Not pertinent. HOME MEDICATIONS: Simvastatin 40 mg at bedtime. Does not remember anything else. REVIEW OF SYSTEMS: Patient at home denied any fevers or chills. Denied any chest pain. Did complain of some worsening shortness of breath over the past 2 or 3 days. Did complain of chronic difficulty in ambulation because of low back pain and radiculopathy. Denied any nausea, vomiting, diarrhea, or abdominal pain. Denied any chest pain. Unsure whether he lost his consciousness or not when he fell down. PHYSICAL EXAMINATION: VITAL SIGNS: Temperature 100.5, pulse 85, respiratory rate 20, blood pressure 149/65, pulse oximetry 94% in room air. GENERAL: Patient awake, alert, cooperative. Knows his name and knows the month and the year; however, he knows that he is in a hospital but thinks this is a hospital in [place] and does not know the year, however, could tell me the name of the president. HEENT: Normocephalic, atraumatic. He does have continuous mouth breathing. Moist mucous membranes. Anicteric eyes. CHEST: Bilateral diffuse wheezing. CARDIOVASCULAR: S1, S2, regular, tachycardic. No murmur, rub, or gallop. ABDOMEN: Obese, soft, nontender. Bowel sounds present. EXTREMITIES: Bipedal edema present. LABORATORY DATA: WBC 9.2, hemoglobin 15.8, platelets 166. Sodium 142, potassium 4, chloride 104, bicarbonate 29, BUN 20, creatinine 1.78, glucose 111, calcium 8.3. Liver function tests are normal. Cardiac enzymes are negative. BNP is 42.6. Total protein 7. Albumin 3.8. ABG shows 7.4 pH, pCO2 of 41, pO2 of 64. Coagulation panel is normal. Chest x-ray shows some possible atelectatic changes. Hip x-ray shows degenerative change. No obvious acute fracture or dislocation. ASSESSMENT AND PLAN: This is a 80-year-old male with possible mild dementia who presented to the hospital after a fall and then inability to get up and ambulate. Found to have chronic obstructive pulmonary disease (COPD) exacerbation with fever, which is under workup at present, generalized severe deconditioning, muscle weakness. 1. Fever. Will send urinalysis (UA) and urine culture and had blood cultures. Will also get CT chest to evaluate for underlying pneumonia. Will start the patient on Tylenol. At present, will not give any antibiotics, except for COPD exacerbation, as we do not know if he has any infection or not. 2. COPD exacerbation. Will treat with nebulizers, prednisone, and doxycycline. 3. Cognitive impairment. It looks like patient may have underlying dementia. Unknown baseline. Patient himself is a poor historian. Will have to get more corroborative history from family members when available. 4. Chronic kidney disease (CKD), stage III. Creatinine 1.7-1.8, which seems to be at baseline since 2015. 5. History of benign prostatic hypertrophy (BPH). Will monitor intake and output but unknown whether patient is on any medications or not. 6. Hypertension. Blood pressure at present reasonably well controlled. 7. Fall. Inability to ambulate. Hip x-ray does not show any acute fracture; however, will get a CT head as unsure whether patient hit his head or not. Patient denied passing out. Patient has extreme generalized deconditioning. Will consult physical therapy for evaluation. 8. Chronic low back pain. Patient does have history of spinal stenosis, lumbar radiculopathy, and history of lumbar surgery, so this could be contributing to the weakness of his lower extremities and difficulty in ambulation. 9. Deep vein thrombosis (DVT) prophylaxis has been ordered.
[2016-08-23] MEDS: LevoFLOXacin IV 250 MG in APPROPRIATE DILUENT 1 EA IV SCH (18:05)
--- NOTE | 2016-08-23 19:35 | IPN ---
DATE: 08/22/2016 Patient admitted today for questionable syncope episode and chronic obstructive pulmonary disease (COPD) exacerbation. Patient during the course of the day is more awake and further history was taken. Discovered that patient has been having a chronic cough, progressively worsening with dyspnea. Has had poor compliance. Has not seen a doctor in years and also drinks about a bottle per day as per patient's family as well smokes 2 packs of cigarettes per day. Also discovered patient had urinary retention of 1.2 L. Dumont catheter was in place and patient was hypertensive in to 180s/86 with a heart rate of 75. Respiratory rate of 20. [id number], pulse oximetry of 93%. Influenza has been positive for Influenza A. PHYSICAL EXAMINATION: GENERAL: Alert, coughing, disheveled, in no acute distress. HEENT: Normocephalic, disheveled. CARDIAC: Regular rate and rhythm. Normal S1, S2. PULMONARY: Bilateral wheeze, mild rhonchi. ABDOMEN: Distended, obese, soft, mild epigastric tenderness reproducible. No rebound, no guarding. Positive bowel sounds. ASSESSMENT AND PLAN: This is an 80-year-old male patient with underlying medical history of COPD, smoker, poor compliance, hypertension, benign prostate hypertrophy (BPH), admitted status-post syncope with acute COPD exacerbation and Influenza. PROBLEMS: 1. Acute COPD exacerbation possible secondary to Influenza infection and also community acquired bacterial pneumonia. Continue Levaquin, Tamiflu, Solu-Medrol, nebulizer treatment, Mucinex. Patient does not require significant oxygen. Acapella. Chest x-ray is appreciated. Tamiflu followup with cultures. Pulmicort nebulizer treatment. 2. Diarrhea. Gastrointestinal (GI) panel sent. Intravenous (IV) fluids for hydration. 3. Chronic kidney disease (CKD), possible obstructive uropathy, giving the patient having retention. Dumont catheter in place. Strict intake and output (I and O). Followup adrenal ultrasound, followup urine studies. Flomax has been started. 4. Obesity. Complicating care. 5. Alcohol abuse. Monitor for withdrawal. Serax standing as needed. Folic acid, multivitamin. 6. Chronic kidney disease. Monitor BUN and creatinine. Rule out obstructive uropathy. 7. Deep venous thrombosis (DVT) prophylaxis. Lovenox subcu. DISPOSITION PLANNING: Pending clinical improvement, physical therapy might need potential placement. Patient family services (PFS) consulted.
--- NOTE | 2016-08-23 20:15 | IPN ---
DATE: 08/23/2016 The patient is seen and examined. Mildly lethargic but arousable to verbal stimuli. The patient does not know why he is here. Denies any chest pain, pressure, or discomfort. Reported mild shortness of breath. The patient is a very poor historian. VITAL SIGNS: Temperature 97.7, pulse 78, respirations 22, blood pressure 140/77, pulse oximetry 95% on 2 liters nasal cannula. LABORATORY DATA: WBC 9.3, hemoglobin 15.1/46.1, platelets 142. Chemistry: Sodium 140, potassium 3.9, chloride 105, bicarbonate 26, BUN 23, creatinine 1.6. Respiratory panel positive for influenza AH3. PHYSICAL EXAMINATION: The patient is alert, mildly lethargic, disheveled, arousable to verbal stimuli. HEENT: Normocephalic, atraumatic. Disheveled. CARDIAC: Regular rate and rhythm. Normal S1, S2. PULMONARY: Bilateral wheeze, mild with bilateral rhonchi. ABDOMEN: Soft, distended. Nontender to palpation. No rebound. No guarding. Positive bowel sounds. EXTREMITIES: No edema of the bilateral lower extremities. ASSESSMENT AND PLAN: This is an 80-year-old male patient with underlying medical history of chronic kidney disease stage III, baseline creatinine around 1.7, benign prostatic hypertrophy (BPH) , dyslipidemia, hypertension, chronic kidney disease, generalized anxiety disorder, tubular adenoma of the colon, chronic anemia, obesity, chronic low back pain, right radiculopathy, spinal stenosis in the lumbar region, alcohol abuse, smoker, admitted with fall. The patient was found after fall with inability to get up and ambulate. Pressed Life Alert. The patient was encephalopathic and does not know why he was here. Found to have acute chronic obstructive pulmonary disease (COPD) exacerbation with influenza. 1. Acute COPD exacerbation secondary to influenza, also with community acquired bacterial pneumonia. The patient is on Solu-Medrol, taper steroid as tolerated. Oxygen supplementation. Acapella. Chest x-ray appreciated. Pulmicort nebulizer treatment. Initially IV fluids given. 2. Fever secondary to influenza and likely also urinary tract infection (UTI). Followup urine culture. Urinalysis. Continue Levaquin, which will also cover for community-acquired bacterial pneumonia. Tamiflu. The patient is currently clinically improved. Tylenol as needed. 3. Cognitive impairment, possibly metabolic encephalopathy with underlying dementia, alcohol abuse, influenza and underlying infection. We will correct underlying derangement. Supportive care. 4. History of alcohol abuse. Serax as needed. Monitor for withdrawal. Thiamine, multivitamin and folic acid. 5. Benign prostatic hypertrophy (BPH) . Continue current medications. 6. Chronic kidney disease stage III with also possibly urinary retention, 1.2 liters was drained after Dumont was put in. Baseline creatinine 1.7 to 1.8. Continue to monitor. Dumont catheter has been placed. 7. Benign prostatic hypertrophy (BPH) . The patient was started on Flomax. We will continue to monitor. The patient currently has a Dumont. 8. Hypertension. Blood pressure is reasonable. Continue to monitor. 9. Fall and inability to ambulate. Hip x-ray is negative for acute fracture. CT of the head appreciated. Physical therapy (PT). The patient was orthostatic positive. IV fluids have been given. We will continue to monitor. Telemetry. Echocardiogram. 10. Chronic lower back pain. History of lumbar spinal stenosis, lumbar radiculopathy, history of lumbar surgery. We will continue physical therapy (PT). Pain medication if the patient needs. 11. Deep vein thrombosis (DVT) prophylaxis. Lovenox subcutaneously. DISPOSITION: Pending physical therapy and clinical improvement. Likely will need placement as well. The patient is a DO NOT RESUSCITATE, DO NOT INTUBATE.
[2016-08-23] MEDS: TAMSULOSIN 0.4 MG CAP PO SCH (20:29)
[2016-08-24] VITALS (11 sets, daily range): BP systolic 121–185; BP diastolic 75–86; O2SAT 95
[2016-08-24] MEDS: IPRATROPIUM 0.5MG/ALBUTEROL 2.5MG INH SOL UD 3ML (DUONEB)(J7620) NEB SCH ×4 (02:00→21:06)
[2016-08-24] MEDS: methylPREDNISolone INJ 40 MG/1 ML VIAL (J2920) IV SCH ×3 (03:24→20:49)
[2016-08-24 05:39] LABS: BASO % 0.1 % (0.0-1.0); EOS % 0.3 % (0.0-3.0); LARGE UNSTAINED CELL # 0.1 K/mm3 (0.0-0.4); LARGE UNSTAINED CELL % 0.8 % (0.0-4.0); LYMPH # 0.6 K/mm3 (1.5-4.5); LYMPH % 3.9 % (24.0-44.0); MEAN CORPUSCULAR HEMOGLOBIN 31.2 pg (27.0-33.0); MEAN CORPUSCULAR HGB CONC 33.7 g/dl (32.0-36.5); MEAN CORPUSCULAR VOLUME 92.6 fl (80.0-96.0); MONO # 0.6 K/mm3 (0.0-0.8); MONO % 4.7 % (0.0-5.0); NEUTROPHILS # 11.4 K/mm3 (1.8-7.7); NEUTROPHILS % 90.2 % (36.0-66.0); PLATELET COUNT, AUTOMATED 157 k/mm3 (150-450); RED CELL DISTRIBUTION WIDTH 12.8 % (11.5-14.5); WHITE BLOOD COUNT 12.7 K/mm3 (4.0-10.0)
[2016-08-24 05:47] LABS: CREATININE FOR GFR 1.62 MG/DL (0.70-1.30); GLOMERULAR FILTRATION RATE 43.8 (>35); MAGNESIUM LEVEL 2.2 MG/DL (1.8-2.4); POTASSIUM SERUM 4.5 MEQ/L (3.5-5.1)
[2016-08-24] MEDS: BUDESONIDE 0.5 MG/2 ML INHALATION SUSPENSION INH SCH ×2 (07:19→21:06)
[2016-08-24] MEDS: ENOXAPARIN 30 MG/0.3 ML SYR (J1650) SC SCH (08:20)
[2016-08-24] MEDS: THIAMINE 100 MG TAB PO SCH (08:20)
[2016-08-24] MEDS: OSELTAMIVIR 6 MG/ML 60ML SUSP PO SCH ×2 (08:20→20:50)
[2016-08-24] MEDS: NICOTINE 21MG/24HR 1 EA TRANSDERMAL TD SCH (08:20)
[2016-08-24] MEDS: FOLIC ACID 1 MG TAB PO SCH (08:20)
[2016-08-24] MEDS: SENOKOT S TAB PO SCH ×2 (08:20→20:50)
[2016-08-24] MEDS: guaiFENesin ER 600 MG TAB PO SCH ×2 (08:21→20:50)
[2016-08-24] MEDS: MULTIVITAMINS/MINERALS THERAP 1 TAB PO SCH (08:21)
[2016-08-24] MEDS ORDERED: PREVNAR 13 VACCINE SYRINGE (CPT CODE:90670) IM ONE (09:00)
--- NOTE | 2016-08-24 13:18 | IPNPDOC ---
Date Seen The patient was seen on 08/24/16. Progress Note SUBJECTIVE: Patient tells me that he feels well he has no difficulty with breathing at the present time OBJECTIVE PHYSICAL EXAMINATION: VITAL SIGNS: Please see below. GENERAL: Disheveled obese elderly man sitting in a recliner eating breakfast watching television he does not appear to be in any acute distress whatsoever HEENT:.] January he has moist mucous membranes difficult to assess for any elevation CVP secondary to body habitus CARDIOVASCULAR: S1-S2. RESPIRATORY: Prolonged expiratory phase possibly some end expiratory wheeze good air movement. ABDOMINAL: Is an obese bowel sounds are present abdomen soft EXTREMITIES: No clubbing cyanosis or edema LABORATORY DATA: Please see below. MICROBIOLOGY: Influenza A H3 positive Please see below. IMAGING: Renal ultrasound revealed solitary bilateral renal cysts otherwise normal CT scan of the chest reveals no acute mediastinal or pleural parenchymal process CT scan of the head revealed age-related atrophy and microvascular ischemic changes no acute intracranial hemorrhage infarction or mass effect Echocardiogram: Pending report ordered on 08/22/2016. DVT prophylaxis ordered?: Lovenox 30 subcutaneous daily ASSESSMENT AND PLAN: This is a 80-year-old man with status post fall with inability to get up and pressing his life alert. PROBLEMS: 1. Fall: Likely secondary to metabolic encephalopathy, the patient is currently being treated for decompensated COPD as well as influenza viral infection. The patient also is given his advanced age may have some cognitive impairment at his baseline although he does live alone and does abuse alcohol drinking reportedly one bottle of wine per day. At the present time the patient is awake alert and oriented to person place time is able to tell me the year month where he is and why he is here. The patient was reportedly orthostatic earlier this day I did speak with the nursing staff this morning before me that his blood pressure does not drop in his heart rate does not increase upon going from laying supine to standing position. We'll continue to have the patient work with physical therapy, the patient has chronic low back pain secondary to spinal stenosis with lumbar radiculopathy 2. Influenza infection: The patient is currently using 2 L of oxygen which I suspect community acquired can be weaned as tolerated for sats 88-92. He is on day 3 of Tamiflu and appears to be improving. The patient is also currently on treatment for community acquired pneumonia my suspicion for this is lower we'll continue with Levaquin for the time being 3. 9 beats of nonsustained ventricular tachycardia: Concerning new finding an echocardiogram has been completed we are currently waiting reportedly was ordered on the his potassium and magnesium have been optimized. We'll continue to monitor his blood pressure and start a beta analy as appropriate 4. History of alcohol abuse: See Rx when necessary he is not exhibiting any signs or symptoms of withdrawal at this time he has never had withdrawal seizure continue with thiamine and multivitamin and folic acid 5. BPH: The patient has been started on Flomax he was retaining urine at the time of his admission 1.2 L or return with a Dumont catheter was placed renal ultrasound did not reveal any hydronephrosis, we'll consider giving the patient a voiding trial tomorrow 6. Chronic kidney disease: Patient's renal function is at its baseline DISPOSITION: Patient is a DNR/DNI we'll continue to follow him closely. VS, I&O, 24H, [facility] Vital Signs/I&O Vital Signs Date Time Temp Pulse Resp B/P Pulse Ox O2 Delivery O2 Flow Rate FiO2 08/24/16 11:45 96.0 64 22 165/82 96 Nasal Cannula 2.0 I&O- Last 24 Hours up to 6 AM 08/24/16 06:00 Intake Total 1250 ml Output Total 1700 ml Balance -450 ml Laboratory Data 24H LABS Laboratory Tests 2 08/24/16 05:17: Anion Gap 5L, White Blood Count 12.7H, Red Blood Count 4.75, Hemoglobin 14.8, Hematocrit 44.0, Mean Corpuscular Volume 92.6, Mean Corpuscular Hemoglobin 31.2 , Mean Corpuscular Hemoglobin Concent 33.7, Red Cell Distribution Width 12.8, Platelet Count 157, Neutrophils (%) (Auto) 90.2H, Lymphocytes (%) (Auto) 3.9L, Monocytes (%) (Auto) 4.7, Eosinophils (%) (Auto) 0.3, Basophils (%) (Auto) 0.1, Neutrophils # (Auto) 11.4H, Lymphocytes # (Auto) 0.6L, Monocytes # (Auto) 0.6, Eosinophils # (Auto) 0.0, Basophils # (Auto) 0.0, Blood Urea Nitrogen 27H, Creatinine 1.62H, Sodium Level 140, Potassium Level 4.5, Chloride Level 106, Carbon Dioxide Level 29, Calcium Level 8.0L, Glomerular Filtration Rate 43.8, Large Unclassified Cells # 0.1, Large Unclassified Cells % 0.8, Magnesium Level 2.2, Total Creatine Kinase 391H CBC/BMP Laboratory Tests 08/24/16 05:17 Calcium Level 8.0 L, Red Blood Count 4.75, Mean Corpuscular Volume 92.6, Mean Corpuscular Hemoglobin 31.2, Mean Corpuscular Hemoglobin Concent 33.7, Red Cell Distribution Width 12.8, Neutrophils (%) (Auto) 90.2 H, Lymphocytes (%) (Auto) 3.9 L, Monocytes (%) (Auto) 4.7, Eosinophils (%) (Auto) 0.3, Basophils (%) (Auto ) 0.1, Neutrophils # (Auto) 11.4 H, Lymphocytes # (Auto) 0.6 L, Monocytes # ( Auto) 0.6, Eosinophils # (Auto) 0.0, Basophils # (Auto) 0.0 Microbiology Microbiology 08/22/16 Blood Culture - Preliminary, Resulted No growth after 24 hours . All specim... 08/24/16 Gastrointestinal Tract Panel (PCR), Received Pending 08/22/16 Respiratory Virus Panel (PCR) (CLAUDIA) - Final, Complete Influenza A H3 08/23/16 Urine Culture, Received Pending BELKIS QUIÑONES MD Aug 24, 2016 13:18
--- NOTE | 2016-08-24 16:35 | EDDOCDS ---
Nurse's Notes [facility] Name: Jose Crabtree Age: 80 yrs Sex: Male : 1935 Arrival Date: 08/22/2016 Time: 03:25 Bed Admit Hold Private MD: Diagnosis: Muscle weakness (generalized) Presentation: 08/22 03:35 Presenting complaint: EMS states: pt got up to go to the bathroom and then all of a ko2 sudden got weak and couldn't walk anymore. When EMS arrived pt was on the floor and was still unable to stand up. Suicide/Homicide risk assessment- the patient denies having any suicidal and/or homicidal ideations and does not present with any other emotional, behavioral or mental health complaints. Status: Patient is not a personal service workers or dependent. Transition of care: patient was not received from another setting of care. Care prior to arrival: See EMS report. Glucose check. 94. 03:35 Acuity: BLANCA Level 3 ko2 03:35 Method Of Arrival: Ambulance ko2 03:47 Adult Sepsis Screening: The patient does not have new or worsening altered mentation. ko2 Patient's respiratory rate is less than 22. Systolic blood pressure is greater than 100. Patient has a qSOFA score of 0- Negative Sepsis Screen. Triage Assessment: 03:45 General: Appears in no apparent distress, Behavior is appropriate for age, cooperative. ko2 Pain: Denies pain. The patient is triaged at the bedside. See Assessment in Nurses Notes section of ED record. Neurological: Level of Consciousness is awake, alert. Cardiovascular: Heart tones S1 S2 present. Respiratory: Airway is patent Respiratory effort is even, unlabored, Respiratory pattern is regular, symmetrical, Breath sounds are diminished bilaterally. GI: Abdomen is obese, Bowel sounds present X 4 quads. Musculoskeletal: Range of motion intact in all extremities. Historical: - Allergies: Penicillins; - Home Meds: 1. simvastatin 40 mg Oral tab 2. 2 other pills he cant remember one being for BP - PMHx: Hypercholesterolemia; Hypertension; - PSHx: none; - Social history: Smoking status: Patient uses tobacco products, heavy tobacco smoker. No barriers to communication noted, The patient speaks fluent Kiswahili, Speaks appropriately for age. - Family history: Not pertinent. - : The pt / caregiver states he / she is not on anticoagulants. Home medication list is obtained from the patient. - Exposure Risk Screening:: None identified. Screenin:46 Screening information is obtained from the patient. Fall risk: At risk due to age, ko2 prior history of falls. Assistance ADL's: requires no assistance with activities of daily living. Abuse/DV Screen: The patient / caregiver reports he/she is: not in a situation that causes fear, pain or injury. Nutritional screening: No deficits noted. Advance Directives: Currently, there is no health care proxy. There is no active DNR order. There is no living will. There is no Power of Rn Home Health. home support is adequate. Assessment: 03:46 General: See triage assessment. ko2 04:47 General: Appears in no apparent distress, comfortable, Behavior is appropriate for age, ko2 cooperative. Pain: Denies pain. Neurological: Level of Consciousness is awake, alert. Respiratory: Airway is patent Respiratory effort is even, unlabored. Derm: Skin is normal. 05:45 General: Appears in no apparent distress, comfortable, Behavior is appropriate for age, ko2 cooperative. Pain: Denies pain. Neurological: Level of Consciousness is awake, alert. Respiratory: Airway is patent Respiratory effort is even, unlabored. Derm: Skin is normal. 06:25 General: Appears in no apparent distress, comfortable, Behavior is appropriate for age, ko2 cooperative. Pain: Denies pain. Neurological: Level of Consciousness is awake, alert. Respiratory: Airway is patent Respiratory effort is even, unlabored. Derm: Skin is normal. 07:26 General: Appears in no apparent distress, comfortable, Behavior is appropriate for age, pml cooperative. Pain: Denies pain. Neurological: Level of Consciousness is awake, alert, Oriented to person, place, time. Cardiovascular: Capillary refill < 3 seconds. Respiratory: Airway is patent Respiratory effort is even, unlabored. Derm: Skin is pink, warm & dry. 08:22 General: attempted to ambulate pt, pt unable to stand with maximal assistance. pt pml unable to sit to side of bed independently. MD Gonzalez aware . 09:06 General: Appears in no apparent distress, comfortable, unkempt. Neurological: Level of pml Consciousness is awake, alert, Oriented to person, place, time. Cardiovascular: Capillary refill < 3 seconds. Respiratory: Airway is patent Respiratory effort is even, unlabored. Derm: Skin is pink, warm & dry. 10:07 General: Appears in no apparent distress, comfortable, unkempt, Behavior is jo3 cooperative. Neurological: Level of Consciousness is awake, alert. Respiratory: Airway is patent Respiratory effort is even, unlabored. Derm: Skin is pink, warm & dry. Vital Signs: 03:36 BP 188 / 88; Pulse 113; Resp 20; Temp 99.5(O); Pulse Ox 95% on R/A; Weight 90.72 kg sonal (R); Height 5 ft. 10 in. (177.80 cm); Pain 0/10; 03:47 Pulse 110 MON; Pulse Ox 92% ; ko2 03:48 BP 204 / 87 (auto/); ko2 04:03 BP 193 / 86 (auto/); ko2 04:08 Pulse 108 MON; ko2 04:18 BP 205 / 106 (auto/); ko2 04:18 Pulse 108 MON; ko2 04:48 BP 178 / 83 (auto/); ko2 04:49 Pulse 114 MON; ko2 05:07 BP 141 / 94 (auto/); ko2 05:07 Pulse 114 MON; Pulse Ox 94% ; ko2 05:18 BP 203 / 86 (auto/); ko2 05:18 Pulse 112 MON; Pulse Ox 94% ; ko2 05:23 Pulse 112 MON; Pulse Ox 95% ; pml 05:32 Pulse 100 MON; Pulse Ox 90% ; ko2 05:33 BP 187 / 80 (auto/); ko2 05:48 BP 173 / 79 (auto/); ko2 05:49 Pulse 96 MON; ko2 06:03 BP 199 / 87 (auto/); ko2 06:03 Pulse 90 MON; ko2 07:09 BP 183 / 88 (auto/); pml 07:11 Pulse 84 MON; Pulse Ox 95% ; pml 07:36 BP 186 / 79 (auto/); pml 07:36 Pulse 84 MON; pml 07:39 Pulse 84 MON; Pulse Ox 94% ; pml 07:39 BP 183 / 79 (auto/); pml 07:54 BP 199 / 86 (auto/); pml 07:55 Pulse 88 MON; pml 08:20 BP 188 / 92 (auto/); pml 08:20 Pulse 92 MON; Pulse Ox 92% ; pml 08:24 BP 181 / 90 (auto/); pml 08:25 Pulse 84 MON; Pulse Ox 95% ; pml 08:39 BP 193 / 88 (auto/); pml 08:40 Pulse 84 MON; pml 08:54 BP 191 / 91 (auto/); pml 08:55 Pulse 84 MON; pml 03:36 Body Mass Index 28.70 (90.72 kg, 177.80 cm) sonal Vitals: 03:47 Log In Time N/A - ambulance arrival. ko2 ED Course: 03:27 Patient visited by Magra Barragan, Disposal Worker. ml3 03:27 Patient moved to Waiting ml3 03:29 Claire James,RN is Primary Nurse. ml3 03:29 Patient moved to 9 ml3 03:36 Patient visited by Obdulia Sánchez PCA. sonal 03:37 Triage Initiated ko2 03:49 Lolly Gonzalez DO is Attending Physician. mm11 03:51 Patient visited by Lolly Gonzalez DO. mm11 03:54 Patient visited by Lolly Gonzalez DO. mm11 04:08 Patient visited by Obdulia Sánchez PCA. sonal 04:08 EKG done. (by ED staff). Reviewed by Lolly Gonzalez DO. sonal 04:40 B-Type Natiuretic Peptide Sent. rw1 04:40 Basic Metabolic Profile Sent. rw1 04:40 CBC with Diff Sent. rw1 04:40 Cardiac Injury Profile Sent. rw1 04:41 Partial Thromboplastin Time Sent. rw1 04:41 Prothrombin Time Profile\E\INR Sent. rw1 04:41 Troponin Sent. rw1 04:41 Inserted saline lock: 20 gauge in right antecubital area and blood collected. The rw1 patient tolerated the procedure well. 04:44 Patient visited by Rommel Carias LPN. rw1 04:47 Patient name changed from Joes\S\\S\Devin\S\ to Jose\S\C\S\Douglas. EDMS 04:51 [facility] Payment Agreement was scanned into [employer] and attached to record. pm4 05:45 Patient visited by Claire James RN. ko2 06:27 Patient visited by Claire James RN. ko2 07:27 Patient visited by Leslie Lara RN. pml 07:44 Patient visited by Segun Lawson PCA. jlf 08:21 Patient visited by Lolly Gonzalez DO. mm11 08:23 Patient visited by Leslie Lara,ANDREW. pml 09:07 Patient visited by Leslie Lara,ANDREW. pml 09:09 Jessica Og is Hospitalizing Provider. mm11 09:12 EKG-ADULT Returned. EDMS 09:13 Chest, 2 View (pa\E\lat) Returned. EDMS 09:57 Patient moved to Admit Hold kpj 10:08 Patient visited by Nereida Gutierrez,ANDREW. jo3 11:07 Patient moved to 21 kpj 11:26 Patient moved to Admit Hold kpj 11:44 Primary Nurse role handed off by Claire James RN kr3 13:53 Pelvis, complete Returned. EDMS 14:31 CT Head without contrast Returned. EDMS 14:31 CT Chest without contrast Returned. EDMS 16:52 T-Sheet-- Draft Copy was scanned into [employer] and attached to record. klr 02 11:38 ECG/EKG was scanned into [employer] and attached to record. gb Administered Medications: 08/22 04:02 Drug: Albuterol-Ipratropium 3 ml [ipratropium-albuterol 0.5 mg-3 mg(2.5 mg base)/3 mL 6 nebulization soln (3 mL)] Route: Inhalation; 04:24 Drug: Albuterol-Ipratropium 3 ml [ipratropium-albuterol 0.5 mg-3 mg(2.5 mg base)/3 mL 6 nebulization soln (3 mL)] Route: Inhalation; 05:03 Drug: Atenolol 25 mg [atenolol 25 mg tablet (1 tabs)] Route: PO; ko2 RT: 04:02 Initial Med Neb Given as ordered Patient was instructed and evaluated on procedure jh6 Patient tolerated procedure well without adverse effect. Respiratory: Airway is patent Respiratory effort is even, unlabored, Respiratory pattern is regular symmetrical, Breath sounds are diminished in right upper lobe, left upper lobe, right middle lobe, left lower lobe, right lower lobe, left posterior upper lobe, right posterior upper lobe, left posterior lower lobe, right posterior middle lobe and right posterior lower lobe. 04:09 Respiratory: Airway is patent Respiratory effort is even, unlabored, Respiratory jh6 pattern is regular symmetrical, Breath sounds with rhonchi in right upper lobe, left upper lobe, right middle lobe, left lower lobe, right lower lobe, left posterior upper lobe, right posterior upper lobe, left posterior lower lobe, right posterior middle lobe and right posterior lower lobe Breath sounds are diminished in right upper lobe, left upper lobe, right middle lobe, left lower lobe, right lower lobe, left posterior upper lobe, right posterior upper lobe, left posterior lower lobe, right posterior middle lobe and right posterior lower lobe. 04:24 Subsequent Med Neb Given as ordered Patient was reinforced on procedure Patient jh6 tolerated procedure well without adverse effect. Respiratory: Airway is patent Respiratory effort is even, unlabored, Respiratory pattern is regular symmetrical, Breath sounds with crackles in right upper lobe, left upper lobe and right middle lobe Breath sounds are diminished in right upper lobe, left upper lobe, right middle lobe, left lower lobe and right lower lobe. 04:34 Respiratory: Breath sounds are coarse in right upper lobe, left upper lobe, right jh6 middle lobe, left lower lobe and right lower lobe. Respiratory: Airway is patent Respiratory effort is even, unlabored, Respiratory pattern is regular symmetrical. Order Results: Lab Order: B-Type Natiuretic Peptide; SPEC'M 08/22/16 04:38 Test: BRAIN NATRIURETIC PEPTIDE; Value: 42.6; Range: <100; Units: PG/ML; Status: F Lab Order: Basic Metabolic Profile; SPEC'M 08/22/16 04:38 Test: GLUCOSE, FASTING; Value: 111; Range: 83-110; Abnormal: Above high normal; Units: MG/DL; Status: F Test: BLOOD UREA NITROGEN; Value: 20; Range: 7-18; Abnormal: Above high normal; Units: MG/DL; Status: F Test: CREATININE FOR GFR; Value: 1.78; Range: 0.70-1.30; Abnormal: Above high normal; Units: MG/DL; Status: F Test: GLOMERULAR FILTRATION RATE; Value: 39.2; Range: >35; Status: F Test: SODIUM LEVEL; Value: 142; Range: 136-145; Units: MEQ/L; Status: F Test: POTASSIUM SERUM; Value: 4.0; Range: 3.5-5.1; Units: MEQ/L; Status: F Test: CHLORIDE LEVEL; Value: 104; Range: 98-107; Units: MEQ/L; Status: F Test: CARBON DIOXIDE LEVEL; Value: 29; Range: 21-32; Units: MEQ/L; Status: F Test: ANION GAP; Value: 9; Range: 8-16; Units: MEQ/L; Status: F Test: CALCIUM LEVEL; Value: 8.3; Range: 8.8-10.2; Abnormal: Below low normal; Units: MG/DL; Status: F Test Note: ; Units are mL/min/1.73 m2 Chronic Kidney Disease Staging per NKF: Stage I & II GFR >=60 Normal to Mildly Decreased Stage III GFR 30-59 Moderately Decreased Stage IV GFR 15-29 Severely Decreased Stage V GFR <15 Very Little GFR Left ESRD GFR <15 on RN EMBEDDED Lab Order: CBC with Diff; SPEC'M 08/22/16 04:38 Test: WHITE BLOOD COUNT; Value: 9.2; Range: 4.0-10.0; Units: K/mm3; Status: F Test: RED BLOOD COUNT; Value: 4.99; Range: 4.30-6.10; Units: M/mm3; Status: F Test: HEMOGLOBIN; Value: 15.8; Range: 14.0-18.0; Units: g/dl; Status: F Test: HEMATOCRIT; Value: 46.6; Range: 42.0-52.0; Units: %; Status: F Test: MEAN CORPUSCULAR VOLUME; Value: 93.5; Range: 80.0-96.0; Units: fl; Status: F Test: MEAN CORPUSCULAR HEMOGLOBIN; Value: 31.7; Range: 27.0-33.0; Units: pg; Status: F Test: MEAN CORPUSCULAR HGB CONC; Value: 33.9; Range: 32.0-36.5; Units: g/dl; Status: F Test: RED CELL DISTRIBUTION WIDTH; Value: 12.9; Range: 11.5-14.5; Units: %; Status: F Test: PLATELET COUNT, AUTOMATED; Value: 166; Range: 150-450; Units: k/mm3; Status: F Test: NEUTROPHILS %; Value: 82.2; Range: 36.0-66.0; Abnormal: Above high normal; Units: %; Status: F Test: LYMPH %; Value: 8.1; Range: 24.0-44.0; Abnormal: Below low normal; Units: %; Status: F Test: MONO %; Value: 6.4; Range: 0.0-5.0; Abnormal: Above high normal; Units: %; Status: F Test: EOS %; Value: 1.1; Range: 0.0-3.0; Units: %; Status: F Test: BASO %; Value: 0.4; Range: 0.0-1.0; Units: %; Status: F Test: LARGE UNSTAINED CELL %; Value: 1.9; Range: 0.0-4.0; Units: %; Status: F Test: NEUTROPHILS #; Value: 7.6; Range: 1.8-7.7; Units: K/mm3; Status: F Test: LYMPH #; Value: 0.9; Range: 1.5-4.5; Abnormal: Below low normal; Units: K/mm3; Status: F Test: MONO #; Value: 0.6; Range: 0.0-0.8; Units: K/mm3; Status: F Test: EOS #; Value: 0.1; Range: 0.0-0.50; Units: K/mm3; Status: F Test: BASO #; Value: 0.0; Range: 0.0-0.2; Units: K/mm3; Status: F Test: LARGE UNSTAINED CELL #; Value: 0.2; Range: 0.0-0.4; Units: K/mm3; Status: F Lab Order: Cardiac Injury Profile; SPEC'M 08/22/16 04:38 Test: CPK CREATINE PHOSPHOKINASE; Value: 81; Range: 39-308; Units: U/L; Status: F Test: CK-MB VALUE MASS; Value: 1.1; Range: 0.0-3.6; Units: NG/ML; Status: F Test: MB/CK RELATIVE INDEX; Value: 1.35; Range: < OR =4; Status: F Test Note: ; DIAGNOSIS CRITERIA MMB ng/ml Relative Index (RI) NON-AMI < or = 5 N/A GEORGES ZONE > 5 < or = 4 AMI > 5 > 4 Lab Order: Partial Thromboplastin Time; SPEC'M 08/22/16 04:38 Test: PARTIAL THROMBOPLASTIN TIME; Value: 28.9; Range: 26.6-37.1; Units: SECONDS; Status: F Lab Order: Prothrombin Time Profile\E\INR; [facility] 08/22/16 04:38 Test: PROTHROMBIN TIME; Value: 13.4; Range: 12.3-14.5; Units: SECONDS; Status: F Test: INR; Value: 1.01; Status: F Test Note: ; THERAPUTIC HUMAN INR VALUES INDICATIONS NORMAL RANGES PROPHYLAXIS/TREATMENT OF: VENOUS THROMBOSIS 2.0-3.0 PULMONARY EMBOLISM 2.0-3.0 PREVENTION OF SYSTEMIC EMBOLISM FROM: TISSUE HEART VALVES 2.0-3.0 ACUTE MYOCARDIAL INFARCTION 2.0-3.0 VALVULAR HEART DISEASE 2.0-3.0 ATRIAL FIBRILLATION 2.0-3.0 MECHANICAL VALVES(HIGH RISK) 2.5-3.5 RECURRENT MYOCARDIAL INFARCTION 2.5-3.5 Lab Order: Troponin; [facility] 08/22/16 04:38 Test: TROPONIN I; Value: < 0.02; Range: < 0.10; Units: NG/ML; Status: F Test Note: ; Troponin I Reference Interval for [employer] LOCI: 99th Percentile= 0.00-0.045 ng/ml Risk Stratification: <= 0.10 ng/ml Decreased Risk for Adverse Clinical Events. 0.10-1.50 ng/ml Increased Risk for Adverse Clinical Events. Evaluation of additional criterion and/or repeat testing in 2-6 hours is suggested to rule out myocardial damage. >= 1.50 ng/ml Indicative of Myocardial Injury. Lab Order: LIVER PROFILE; [facility] 08/22/16 04:38 Test: AST/SGOT; Value: 29; Range: 15-37; Units: U/L; Status: F Test: ALT/SGPT; Value: 30; Range: 12-78; Units: U/L; Status: F Test: ALKALINE PHOSPHATASE; Value: 88; Range: 45-117; Units: U/L; Status: F Test: BILIRUBIN,TOTAL; Value: 0.4; Range: 0.2-1.0; Units: MG/DL; Status: F Test: BILIRUBIN,DIRECT; Value: 0.1; Range: 0.0-0.2; Units: MG/DL; Status: F Test: TOTAL PROTEIN; Value: 7.0; Range: 6.4-8.2; Units: GM/DL; Status: F Test: ALBUMIN; Value: 3.8; Range: 3.2-5.2; Units: GM/DL; Status: F Test: ALBUMIN/GLOBULIN RATIO; Value: 1.19; Range: 1.00-1.93; Status: F Lab Order: ARTERIAL BLOOD GAS; SPEC'M 08/22/16 12:31 Test: ABG pH (ARTERIAL); Value: 7.403; Range: 7.350-7.450; Units: UNITS; Status: F Test: ABG PARTIAL PRESSURE CO2; Value: 41.9; Range: 35.0-45.0; Units: mmHg; Status: F Test: ABG PARTIAL PRESSURE O2; Value: 64.8; Range: 75.0-100.0; Abnormal: Below low normal; Units: mmHg; Status: F Test: ABG TOTAL CO2; Value: 26.8; Range: 23.0-31.0; Units: MEQ/L; Status: F Test: ABG HCO3; Value: 25.5; Range: 22.0-26.0; Units: MEQ/L; Status: F Test: ABG BASE EXCESS; Value: 0.7; Range: -2.0-2.0; Status: F Test: ABG STANDARD HCO3; Value: 24.9; Range: 22.0-26.0; Units: MEQ/L; Status: F Test: ABG O2 SATURATION; Value: 93.5; Range: 95.0-99.0; Abnormal: Below low normal; Units: %; Status: F Radiology Order: Chest, 2 View (pa\E\lat) Test: Chest, 2 View (pa\E\lat) REASON FOR EXAMINATION: Cough; Clinical: Cough.; ; Technique: AP and lateral.; ; Comparison: 08/04/2011.; ; Findings:; Examination is limited by technique. Cardiomegaly cannot be excluded. Subtle; bibasilar chronic changes are suggested and subtle superimposed atelectasis; cannot be excluded. No definite effusion. No pneumothorax. Skeletal structures; demonstrate age-related changes.; ; Impression:; Mild chronic stable changes. 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 Fall.; ; Technique: Two AP views of the pelvis.; ; Findings: Age related enthesopathy and diffuse symmetric degenerative changes; are appreciated. No obvious acute fracture or dislocation.; ; Impression:; Degenerative changes. No obvious acute fracture or dislocation. If the patient; remains symptomatic consider CT of the pelvis for further investigation.; ; ; Signed by; David De Dios MD 08/22/2016 01:24 P; Radiology Order: CT Head without contrast Test: CT Head without contrast REASON FOR EXAMINATION: fall and syncope; Clinical: Syncope. Fall.; ; Findings:; Age-related atrophy and microvascular ischemic changes are appreciated. The; ventricles and sulci are symmetric. Georges-white differentiation is maintained.; There is no evidence for acute intracranial hemorrhage, mass/mass effect,; pathology or infarction. No extra-axial fluid collection. Calvarium is intact.; Paranasal sinuses and mastoid air cells are clear.; ; Impression:; Age related atrophy and microvascular ischemic changes.; No acute intracranial hemorrhage, infarction, or mass/mass effect.; ; ; Signed by; David De Dios MD 08/22/2016 01:48 P; Radiology Order: CT Chest without contrast Test: CT Chest without contrast REASON FOR EXAMINATION: fall and syncope; Clinical: Fall. Syncope.; ; Comparison: None.; ; Findings:; Lung gee are clear. No acute consolidation, nodule or mass lesion. No; pleural effusion/reaction or pneumothorax. Tracheobronchial tree is patent. The; mediastinum demonstrates atherosclerotic changes to the thoracic aorta and; coronary arteries without aortic aneurysm or cardiomegaly. No pericardial; effusion. No adenopathy. Surrounding musculoskeletal structures demonstrate; age-related changes without acute fracture / dislocation.; ; Impression:; No acute mediastinal or pleuroparenchymal process.; ; ; Signed by; David De Dios MD 08/22/2016 01:54 P; Outcome: 09:09 Decision to Hospitalize by Provider. mm11 15:34 Patient left the ED. ar3 Signatures: Dispatcher [employer] EDMS Ifeoma Palacio, RN RN Lynnette Butler, Reg Reg gb [place], GillianTamieNakita, Disposal Worker Unit ml3 Lucina Kamara,RN RN [email or web address] Nereida Gutierrez,RN RN jo3 Rommel Carias,RIGGING UP MAN RIGGING UP MAN rw1 Lolly Gonzalez, DO mm11 Becky Chandler, TANBARK PEELER TANBARK PEELER ar3 Obdulia Sánchez, TANBARK PEELER TANBARK PEELER Ricki Hill jh6 Leslie Lara,RN Segun Oliveira, TANBARK PEELER TANBARK PEELER Claire Rosa RN RN ko2 Leni Morales Paul, Reg Reg pm4 Chart Complete MTDD
--- NOTE | 2016-08-24 16:35 | EDDOCDS ---
Physician Documentation [facility] Name: Jose Beltran Age: 80 yrs Sex: Male : 1935 Arrival Date: 08/22/2016 Time: 03:25 Bed Admit Hold Private MD: Disposition: 08/22/16 09:09 Hospitalization ordered by Jessica Og for Inpatient Admission. Preliminary diagnosis is Muscle weakness (generalized). - Bed requested for 4 [place]. - Status is Inpatient Admission. ar3 - Condition is Stable. - Problem is an acute exacerbation. - Symptoms have improved. Historical: - Allergies: Penicillins; - Home Meds: 1. simvastatin 40 mg Oral tab 2. 2 other pills he cant remember one being for BP - PMHx: Hypercholesterolemia; Hypertension; - PSHx: none; - Social history: Smoking status: Patient uses tobacco products, heavy tobacco smoker. No barriers to communication noted, The patient speaks fluent Pakistani, Speaks appropriately for age. - Family history: Not pertinent. - : The pt / caregiver states he / she is not on anticoagulants. Home medication list is obtained from the patient. - Exposure Risk Screening:: None identified. Vital Signs: 08/22 03:36 BP 188 / 88; Pulse 113; Resp 20; Temp 99.5(O); Pulse Ox 95% on R/A; Weight 90.72 kg / sonal 200 lbs (R); Height 5 ft. 10 in. (177.80 cm); Pain 0/10; 03:47 Pulse 110 MON; Pulse Ox 92% ; ko2 03:48 BP 204 / 87 (auto/); ko2 04:03 BP 193 / 86 (auto/); ko2 04:08 Pulse 108 MON; ko2 04:18 BP 205 / 106 (auto/); ko2 04:18 Pulse 108 MON; ko2 04:48 BP 178 / 83 (auto/); ko2 04:49 Pulse 114 MON; ko2 05:07 BP 141 / 94 (auto/); ko2 05:07 Pulse 114 MON; Pulse Ox 94% ; ko2 05:18 BP 203 / 86 (auto/); ko2 05:18 Pulse 112 MON; Pulse Ox 94% ; ko2 05:23 Pulse 112 MON; Pulse Ox 95% ; pml 05:32 Pulse 100 MON; Pulse Ox 90% ; ko2 05:33 BP 187 / 80 (auto/); ko2 05:48 BP 173 / 79 (auto/); ko2 05:49 Pulse 96 MON; ko2 06:03 BP 199 / 87 (auto/); ko2 06:03 Pulse 90 MON; ko2 07:09 BP 183 / 88 (auto/); pml 07:11 Pulse 84 MON; Pulse Ox 95% ; pml 07:36 BP 186 / 79 (auto/); pml 07:36 Pulse 84 MON; pml 07:39 Pulse 84 MON; Pulse Ox 94% ; pml 07:39 BP 183 / 79 (auto/); pml 07:54 BP 199 / 86 (auto/); pml 07:55 Pulse 88 MON; pml 08:20 BP 188 / 92 (auto/); pml 08:20 Pulse 92 MON; Pulse Ox 92% ; pml 08:24 BP 181 / 90 (auto/); pml 08:25 Pulse 84 MON; Pulse Ox 95% ; pml 08:39 BP 193 / 88 (auto/); pml 08:40 Pulse 84 MON; pml 08:54 BP 191 / 91 (auto/); pml 08:55 Pulse 84 MON; pml 03:36 Body Mass Index 28.70 (90.72 kg, 177.80 cm) sonal MDM: 03:55 Welder Gas/Pulse Ox/q 30 min VS ordered. mm11 03:55 IV Saline Lock ordered. mm11 03:55 Rhythm Strip to chart ordered. mm11 03:55 Undress patient appropriately for examination ordered. mm11 03:55 Albuterol-Ipratropium 3 ml Inhalation once ordered. mm11 03:55 Call Respiratory ordered. mm11 03:56 B-Type Natiuretic Peptide Ordered. EDMS 03:56 Basic Metabolic Profile Ordered. EDMS 03:56 CBC with Diff Ordered. EDMS 03:56 Cardiac Injury Profile Ordered. EDMS 03:56 Partial Thromboplastin Time Ordered. EDMS 03:56 Prothrombin Time Profile\E\INR Ordered. EDMS 03:56 Troponin Ordered. EDMS 03:57 Chest, 2 View (pa\E\lat) Ordered. EDMS 03:57 ECG WITH READING ER PHYS+CARDIAG ordered. EDMS 03:57 Call Respiratory complete. ml3 04:12 Albuterol-Ipratropium 3 ml Inhalation once ordered. jh6 04:32 Financial registration complete. pm4 04:51 [facility] Payment Agreement was scanned into [employer] and attached to record. pm4 04:57 CBC with Diff Reviewed. mm11 04:57 Partial Thromboplastin Time Reviewed. mm11 04:57 Prothrombin Time Profile\E\INR Reviewed. mm11 04:58 Atenolol 25 mg PO once ordered. mm11 05:27 Basic Metabolic Profile Reviewed. mm11 05:27 B-Type Natiuretic Peptide Reviewed. mm11 05:27 Cardiac Injury Profile Reviewed. mm11 05:27 Troponin Reviewed. mm11 05:44 Misc Banana Room Cutter Order ordered. mm11 06:03 Misc Banana Room Cutter Order complete. ml3 07:41 Ambulate Patient to Assess Patient Safety ordered. mm11 08:22 BED REQUEST+ADM ordered. EDMS 08:38 LIVER PROFILE Ordered. EDMS 09:28 ARTERIAL BLOOD GAS Ordered. EDMS 09:32 Admission / Observation Status ordered. EDMS 09:32 REGULAR DIET ordered. EDMS 09:33 PHYSICAL THERAPY EVAL & TREAT ordered. EDMS 12:26 RESPIRATORY PANEL Ordered. EDMS 12:42 Pelvis, complete Ordered. EDMS 13:08 CT Head without contrast Ordered. EDMS 13:08 CT Chest without contrast Ordered. EDMS 13:18 URINALYSIS Ordered. EDMS 13:18 URINE CULTURE Ordered. EDMS 13:18 BLOOD CULTURES Ordered. EDMS 16:52 T-Sheet-- Draft Copy was scanned into [employer] and attached to record. klr 08/23 11:38 ECG/EKG was scanned into [employer] and attached to record. gb Administered Medications: 08/22 04:02 Drug: Albuterol-Ipratropium 3 ml [ipratropium-albuterol 0.5 mg-3 mg(2.5 mg base)/3 mL jh6 nebulization soln (3 mL)] Route: Inhalation; 04:24 Drug: Albuterol-Ipratropium 3 ml [ipratropium-albuterol 0.5 mg-3 mg(2.5 mg base)/3 mL jh6 nebulization soln (3 mL)] Route: Inhalation; 05:03 Drug: Atenolol 25 mg [atenolol 25 mg tablet (1 tabs)] Route: PO; ko2 Signatures: Dispatcher [employer] EDMS Lynnette Zhu, Reg Reg gb Marga Barragan, Bar Assistant Unit ml3 Gonzalez Ady, DO mm11 Geraldine, Becky, FUEL CELL BUILDER FUEL CELL BUILDER ar3 Pancho,Ricki jh6 Leslie Lara,ANDREW RN pml Claire James RN RN ko2 Leni Morales Paul, Reg Reg pm4 The chart was reviewed and I authenticate all verbal orders and agree with the evaluation and treatment provided.Corrections: (The following items were deleted from the chart) 08:39 08:32 LIVER PROFILE ordered. EDMS EDMS Attachments: 04:51 [facility] Payment Agreement pm4 16:52 T-Sheet-- Draft Copy klr 08/23 11:38 ECG/EKG gb Chart Complete MTDD
--- NOTE | 2016-08-24 16:35 | EDDOCDS ---
Physician Documentation [facility] Name: Jose Beltran Age: 80 yrs Sex: Male : 1935 Arrival Date: 08/22/2016 Time: 03:25 Bed Admit Hold Private MD: Disposition: 08/22/16 09:09 Hospitalization ordered by Jessica Og for Inpatient Admission. Preliminary diagnosis is Muscle weakness (generalized). - Bed requested for 4 [place]. - Status is Inpatient Admission. ar3 - Condition is Stable. - Problem is an acute exacerbation. - Symptoms have improved. Historical: - Allergies: Penicillins; - Home Meds: 1. simvastatin 40 mg Oral tab 2. 2 other pills he cant remember one being for BP - PMHx: Hypercholesterolemia; Hypertension; - PSHx: none; - Social history: Smoking status: Patient uses tobacco products, heavy tobacco smoker. No barriers to communication noted, The patient speaks fluent Malaysian, Speaks appropriately for age. - Family history: Not pertinent. - : The pt / caregiver states he / she is not on anticoagulants. Home medication list is obtained from the patient. - Exposure Risk Screening:: None identified. Vital Signs: 08/22 03:36 BP 188 / 88; Pulse 113; Resp 20; Temp 99.5(O); Pulse Ox 95% on R/A; Weight 90.72 kg / sonal 200 lbs (R); Height 5 ft. 10 in. (177.80 cm); Pain 0/10; 03:47 Pulse 110 MON; Pulse Ox 92% ; ko2 03:48 BP 204 / 87 (auto/); ko2 04:03 BP 193 / 86 (auto/); ko2 04:08 Pulse 108 MON; ko2 04:18 BP 205 / 106 (auto/); ko2 04:18 Pulse 108 MON; ko2 04:48 BP 178 / 83 (auto/); ko2 04:49 Pulse 114 MON; ko2 05:07 BP 141 / 94 (auto/); ko2 05:07 Pulse 114 MON; Pulse Ox 94% ; ko2 05:18 BP 203 / 86 (auto/); ko2 05:18 Pulse 112 MON; Pulse Ox 94% ; ko2 05:23 Pulse 112 MON; Pulse Ox 95% ; pml 05:32 Pulse 100 MON; Pulse Ox 90% ; ko2 05:33 BP 187 / 80 (auto/); ko2 05:48 BP 173 / 79 (auto/); ko2 05:49 Pulse 96 MON; ko2 06:03 BP 199 / 87 (auto/); ko2 06:03 Pulse 90 MON; ko2 07:09 BP 183 / 88 (auto/); pml 07:11 Pulse 84 MON; Pulse Ox 95% ; pml 07:36 BP 186 / 79 (auto/); pml 07:36 Pulse 84 MON; pml 07:39 Pulse 84 MON; Pulse Ox 94% ; pml 07:39 BP 183 / 79 (auto/); pml 07:54 BP 199 / 86 (auto/); pml 07:55 Pulse 88 MON; pml 08:20 BP 188 / 92 (auto/); pml 08:20 Pulse 92 MON; Pulse Ox 92% ; pml 08:24 BP 181 / 90 (auto/); pml 08:25 Pulse 84 MON; Pulse Ox 95% ; pml 08:39 BP 193 / 88 (auto/); pml 08:40 Pulse 84 MON; pml 08:54 BP 191 / 91 (auto/); pml 08:55 Pulse 84 MON; pml 03:36 Body Mass Index 28.70 (90.72 kg, 177.80 cm) sonal MDM: 03:55 Oil Seal Assembler/Pulse Ox/q 30 min VS ordered. mm11 03:55 IV Saline Lock ordered. mm11 03:55 Rhythm Strip to chart ordered. mm11 03:55 Undress patient appropriately for examination ordered. mm11 03:55 Albuterol-Ipratropium 3 ml Inhalation once ordered. mm11 03:55 Call Respiratory ordered. mm11 03:56 B-Type Natiuretic Peptide Ordered. EDMS 03:56 Basic Metabolic Profile Ordered. EDMS 03:56 CBC with Diff Ordered. EDMS 03:56 Cardiac Injury Profile Ordered. EDMS 03:56 Partial Thromboplastin Time Ordered. EDMS 03:56 Prothrombin Time Profile\E\INR Ordered. EDMS 03:56 Troponin Ordered. EDMS 03:57 Chest, 2 View (pa\E\lat) Ordered. EDMS 03:57 ECG WITH READING ER PHYS+CARDIAG ordered. EDMS 03:57 Call Respiratory complete. ml3 04:12 Albuterol-Ipratropium 3 ml Inhalation once ordered. jh6 04:32 Financial registration complete. pm4 04:51 [facility] Payment Agreement was scanned into [employer] and attached to record. pm4 04:57 CBC with Diff Reviewed. mm11 04:57 Partial Thromboplastin Time Reviewed. mm11 04:57 Prothrombin Time Profile\E\INR Reviewed. mm11 04:58 Atenolol 25 mg PO once ordered. mm11 05:27 Basic Metabolic Profile Reviewed. mm11 05:27 B-Type Natiuretic Peptide Reviewed. mm11 05:27 Cardiac Injury Profile Reviewed. mm11 05:27 Troponin Reviewed. mm11 05:44 Misc Softball Coach Order ordered. mm11 06:03 Misc Softball Coach Order complete. ml3 07:41 Ambulate Patient to Assess Patient Safety ordered. mm11 08:22 BED REQUEST+ADM ordered. EDMS 08:38 LIVER PROFILE Ordered. EDMS 09:28 ARTERIAL BLOOD GAS Ordered. EDMS 09:32 Admission / Observation Status ordered. EDMS 09:32 REGULAR DIET ordered. EDMS 09:33 PHYSICAL THERAPY EVAL & TREAT ordered. EDMS 12:26 RESPIRATORY PANEL Ordered. EDMS 12:42 Pelvis, complete Ordered. EDMS 13:08 CT Head without contrast Ordered. EDMS 13:08 CT Chest without contrast Ordered. EDMS 13:18 URINALYSIS Ordered. EDMS 13:18 URINE CULTURE Ordered. EDMS 13:18 BLOOD CULTURES Ordered. EDMS 16:52 T-Sheet-- Draft Copy was scanned into [employer] and attached to record. klr 08/23 11:38 ECG/EKG was scanned into [employer] and attached to record. gb Administered Medications: 08/22 04:02 Drug: Albuterol-Ipratropium 3 ml [ipratropium-albuterol 0.5 mg-3 mg(2.5 mg base)/3 mL jh6 nebulization soln (3 mL)] Route: Inhalation; 04:24 Drug: Albuterol-Ipratropium 3 ml [ipratropium-albuterol 0.5 mg-3 mg(2.5 mg base)/3 mL jh6 nebulization soln (3 mL)] Route: Inhalation; 05:03 Drug: Atenolol 25 mg [atenolol 25 mg tablet (1 tabs)] Route: PO; ko2 Signatures: Dispatcher [employer] EDMS Lynnette Zhu, Reg Reg gb Marga Barragan, Venetian Blind Machine Operator Unit ml3 Gonzalez Ady, DO mm11 Geraldine, Becky, HOUSEPERSON HOUSEPERSON ar3 Pancho,Ricki jh6 Leslie Lara,ANDREW RN pml Claire James RN RN ko2 Leni Morales Paul, Reg Reg pm4 The chart was reviewed and I authenticate all verbal orders and agree with the evaluation and treatment provided.Corrections: (The following items were deleted from the chart) 08:39 08:32 LIVER PROFILE ordered. EDMS EDMS Attachments: 04:51 [facility] Payment Agreement pm4 16:52 T-Sheet-- Draft Copy klr 08/23 11:38 ECG/EKG gb Chart Complete MTDD
[2016-08-24] MEDS: LevoFLOXacin IV 250 MG in APPROPRIATE DILUENT 1 EA IV SCH (17:37)
[2016-08-24] MEDS: TAMSULOSIN 0.4 MG CAP PO SCH (20:50)
[2016-08-25] VITALS: BP 137/72
[2016-08-25] MEDS: IPRATROPIUM 0.5MG/ALBUTEROL 2.5MG INH SOL UD 3ML (DUONEB)(J7620) NEB SCH ×4 (01:29→21:33)
[2016-08-25 04:00] VITALS: BP_SYST 180; BP_SYST 183; BP_DIAS 78; BP_DIAS 94
[2016-08-25] MEDS: methylPREDNISolone INJ 40 MG/1 ML VIAL (J2920) IV SCH ×3 (04:29→20:12)
--- NOTE | 2016-08-25 05:45 | ECHO ---
DATE OF PROCEDURE: 08/23/2015 DATE OF : 1935 AGE: 80 REFERRING PROVIDER: Dr. Garvin. PATIENT LOCATION: Room 3228. REASON FOR ECHOCARDIOGRAM: Syncope. 2D MEASUREMENTS: IVS: 1.5 cm LV: 4.6 cm LVPW: 1.5 cm LA: 3.8 cm Aorta: 3.2 cm IVC: 2.5 cm DOPPLER MEASUREMENTS: Peak velocity across the aortic valve: 1.2 m/s Peak velocity across the LVOT: 0.81 m/s Mitral E: 0.62 Mitral A: 1.0 Ratio 1.6 Maximum tricuspid valve velocity: 1.6 m/s 2D COMMENTS: 1. Normal left ventricular size with probably moderately increased left ventricular wall thickness. Left ventricular systolic function is normal, estimated at 60% to 65%. 2. Subjectively, the left atrium may be mildly enlarged. Normal right atrium and right ventricle. 3. The atrial septum appeared to be normal without evidence of defect or shunt. 4. Normal aortic root. 5. No pericardial effusion seen. 6. Minimally calcified aortic valve with normal leaflet motion. Mildly calcified mitral annulus with normal anterior mitral valve leaflet motion. Normal tricuspid valve. 7. The inferior vena cava was mildly enlarged, central venous pressure mildly elevated. DOPPLER: It detects trace mitral regurgitation and trace tricuspid regurgitation. The calculated pulmonary artery systolic pressure was normal. Abnormal relaxation pattern was noted across the mitral valve leaflets as well as the mitral valve annulus consistent with delayed relaxation. IMPRESSION: 1. Normal global left ventricular systolic function with moderate concentric left ventricular hypertrophy. There are features of left ventricular diastolic dysfunction, grade 1. 2. Aortic valve sclerosis without stenosis or aortic regurgitation. 3. Mitral annulus calcification with trace mitral regurgitation. 4. Trace tricuspid regurgitation with a normal calculated pulmonary artery systolic pressure.
[2016-08-25 05:52] LABS: BASO % 0.1 % (0.0-1.0); EOS # 0.1 K/mm3 (0.0-0.50); EOS % 0.7 % (0.0-3.0); LARGE UNSTAINED CELL # 0.1 K/mm3 (0.0-0.4); LARGE UNSTAINED CELL % 0.8 % (0.0-4.0); LYMPH # 0.8 K/mm3 (1.5-4.5); LYMPH % 5.5 % (24.0-44.0); MEAN CORPUSCULAR HEMOGLOBIN 31.4 pg (27.0-33.0); MEAN CORPUSCULAR HGB CONC 33.9 g/dl (32.0-36.5); MEAN CORPUSCULAR VOLUME 92.6 fl (80.0-96.0); MONO # 0.5 K/mm3 (0.0-0.8); MONO % 4.2 % (0.0-5.0); NEUTROPHILS # 10.5 K/mm3 (1.8-7.7); NEUTROPHILS % 88.6 % (36.0-66.0); PLATELET COUNT, AUTOMATED 155 k/mm3 (150-450); RED CELL DISTRIBUTION WIDTH 12.8 % (11.5-14.5); WHITE BLOOD COUNT 11.9 K/mm3 (4.0-10.0)
[2016-08-25 06:08] LABS: CALCIUM LEVEL 8.3 MG/DL (8.8-10.2); CREATININE FOR GFR 1.67 MG/DL (0.70-1.30); GLOMERULAR FILTRATION RATE 42.2 (>35); MAGNESIUM LEVEL 2.2 MG/DL (1.8-2.4)
[2016-08-25] MEDS: METOPROLOL SUCC *XL* 25MG TAB (TopROL *XL*) PO SCH ×2 (06:58→09:57)
[2016-08-25] MEDS: BUDESONIDE 0.5 MG/2 ML INHALATION SUSPENSION INH SCH ×2 (07:54→21:33)
[2016-08-25 08:00] VITALS: BP 152/60
[2016-08-25] MEDS: FOLIC ACID 1 MG TAB PO SCH (09:57)
[2016-08-25] MEDS: THIAMINE 100 MG TAB PO SCH (09:57)
[2016-08-25] MEDS: ENOXAPARIN 30 MG/0.3 ML SYR (J1650) SC SCH (09:57)
[2016-08-25] MEDS: OSELTAMIVIR 6 MG/ML 60ML SUSP PO SCH ×2 (09:57→20:11)
[2016-08-25] MEDS: guaiFENesin ER 600 MG TAB PO SCH ×2 (09:57→20:10)
[2016-08-25] MEDS: MULTIVITAMINS/MINERALS THERAP 1 TAB PO SCH (09:57)
[2016-08-25] MEDS: SENOKOT S TAB PO SCH ×2 (09:57→21:00)
[2016-08-25] MEDS: NICOTINE 21MG/24HR 1 EA TRANSDERMAL TD SCH (09:58)
--- NOTE | 2016-08-25 11:54 | IPNPDOC ---
Date Seen The patient was seen on 08/25/16. Progress Note SUBJECTIVE: Patient tells me that he feels well he has no difficulty with breathing. OBJECTIVE PHYSICAL EXAMINATION: VITAL SIGNS: Please see below. GENERAL: Disheveled obese elderly man sitting in a recliner eating breakfast watching television he does not appear to be in any acute distress whatsoever. The patient is awake alert oriented 3 HEENT:he has moist mucous membranes difficult to assess for any elevation CVP secondary to body habitus CARDIOVASCULAR: S1-S2. RESPIRATORY: Prolonged expiratory phase good air movement. ABDOMINAL: Is obese bowel sounds are present abdomen soft EXTREMITIES: No clubbing cyanosis or edema LABORATORY DATA: Please see below. MICROBIOLOGY: Influenza A H3 positive Please see below. IMAGING: Renal ultrasound revealed solitary bilateral renal cysts otherwise normal CT scan of the chest reveals no acute mediastinal or pleural parenchymal process CT scan of the head revealed age-related atrophy and microvascular ischemic changes no acute intracranial hemorrhage infarction or mass effect Echocardiogram: 1. Normal left ventricular size with probably moderately increased left ventricular wall thickness. Left ventricular systolic function is normal, estimated at 60% to 65%. 2. Subjectively, the left atrium may be mildly enlarged. Normal right atrium and right ventricle. 3. The atrial septum appeared to be normal without evidence of defect or shunt. 4. Normal aortic root. 5. No pericardial effusion seen. DVT prophylaxis ordered?: Lovenox 30 subcutaneous daily ASSESSMENT AND PLAN: This is a 80-year-old man with status post fall with inability to get up and pressing his life alert. PROBLEMS: 1. Fall: Likely secondary to metabolic encephalopathy, the patient is currently being treated for decompensated COPD as well as influenza viral infection. The patient also is given his advanced age may have some mild cognitive impairment at his baseline although he does live alone and does abuse alcohol drinking reportedly one bottle of wine per day. At the present time the patient is awake alert and oriented to person place time is able to tell me the year month where he is and why he is here. We'll continue to have the patient work with physical therapy, the patient has chronic low back pain secondary to spinal stenosis with lumbar radiculopathy he is not safe for DC at this time. 2. Influenza infection: The patient is currently at his baseline on room air oxygen. He is on day 4 of Tamiflu and appears to be improving. The patient is also currently on treatment for community acquired pneumonia my suspicion for this is lower we'll continue with Levaquin for the time being 3. 9 beats of nonsustained ventricular tachycardia: Patient is on a betablocker , his K [employer] Mag optmized EF is preserved., 4. History of alcohol abuse: See Rx when necessary he is not exhibiting any signs or symptoms of withdrawal at this time he has never had withdrawal seizure continue with thiamine and multivitamin and folic acid 5. BPH: The patient has been started on Flomax he was retaining urine at the time of his admission 1.2 L or return with a Dumont catheter was placed renal ultrasound did not reveal any hydronephrosis, we'll consider giving the patient a voiding trial tomorrow 6. Chronic kidney disease: Patient's renal function is at its baseline 7. DCHF: patient is mildly overloaded, will diurese him gently. DISPOSITION: Patient is a DNR/DNI we'll continue to follow him closely, ok for med surg. VS, I&O, 24H, Fishbone Vital Signs/I&O Vital Signs Date Time Temp Pulse Resp B/P Pulse Ox O2 Delivery O2 Flow Rate FiO2 08/25/16 09:57 95 152/60 08/25/16 08:00 96.0 20 98 Room Air 08/24/16 20:00 2.0 I&O- Last 24 Hours up to 6 AM 08/25/16 05:59 Intake Total 1370 ml Output Total 1400 ml Balance -30 ml Laboratory Data 24H LABS Laboratory Tests 2 08/25/16 05:43: Anion Gap 10, White Blood Count 11.9H, Red Blood Count 5.01, Hemoglobin 15.7, Hematocrit 46.4, Mean Corpuscular Volume 92.6, Mean Corpuscular Hemoglobin 31.4 , Mean Corpuscular Hemoglobin Concent 33.9, Red Cell Distribution Width 12.8, Platelet Count 155, Neutrophils (%) (Auto) 88.6H, Lymphocytes (%) (Auto) 5.5L, Monocytes (%) (Auto) 4.2, Eosinophils (%) (Auto) 0.7, Basophils (%) (Auto) 0.1, Neutrophils # (Auto) 10.5H, Lymphocytes # (Auto) 0.8L, Monocytes # (Auto) 0.5, Eosinophils # (Auto) 0.1, Basophils # (Auto) 0.0, Blood Urea Nitrogen 38H, Creatinine 1.67H, Sodium Level 140, Potassium Level 4.0, Chloride Level 106, Carbon Dioxide Level 24, Calcium Level 8.3L, Glomerular Filtration Rate 42.2, Large Unclassified Cells # 0.1, Large Unclassified Cells % 0.8, Magnesium Level 2.2 CBC/BMP Laboratory Tests 08/25/16 05:43 Calcium Level 8.3 L, Red Blood Count 5.01, Mean Corpuscular Volume 92.6, Mean Corpuscular Hemoglobin 31.4, Mean Corpuscular Hemoglobin Concent 33.9, Red Cell Distribution Width 12.8, Neutrophils (%) (Auto) 88.6 H, Lymphocytes (%) (Auto) 5.5 L, Monocytes (%) (Auto) 4.2, Eosinophils (%) (Auto) 0.7, Basophils (%) (Auto ) 0.1, Neutrophils # (Auto) 10.5 H, Lymphocytes # (Auto) 0.8 L, Monocytes # ( Auto) 0.5, Eosinophils # (Auto) 0.1, Basophils # (Auto) 0.0 Microbiology Microbiology 08/22/16 Blood Culture - Preliminary, Resulted No Growth after 48 hours. All Specime... 08/24/16 Gastrointestinal Tract Panel (PCR) - Final, Complete 08/22/16 Respiratory Virus Panel (PCR) (CLAUDIA) - Final, Complete Influenza A H3 08/23/16 Urine Culture - Final, Complete BELKIS QUIÑONES MD Aug 25, 2016 11:53
[2016-08-25] MEDS ORDERED: SLF 3 ML SYR IV PRN (13:30)
[2016-08-25] MEDS: SLF 3 ML SYR IV SCH ×2 (13:37→22:00)
[2016-08-25] MEDS: FUROSEMIDE 40 MG/4 ML VIAL (J1940) IV SCH ×2 (13:37→17:04)
[2016-08-25 15:00] VITALS: BP 148/74
[2016-08-25] MEDS: LevoFLOXacin 250 MG TABLET PO SCH (17:04)
[2016-08-25] MEDS: TAMSULOSIN 0.4 MG CAP PO SCH (20:10)
[2016-08-25] MEDS: ACETAMINOPHEN TAB 650MG DOSE (2X325MG) PO PRN (20:13)
[2016-08-25 22:00] VITALS: BP 145/63
[2016-08-26] MEDS: IPRATROPIUM 0.5MG/ALBUTEROL 2.5MG INH SOL UD 3ML (DUONEB)(J7620) NEB SCH ×4 (01:28→20:36)
[2016-08-26] MEDS: methylPREDNISolone INJ 40 MG/1 ML VIAL (J2920) IV SCH ×3 (03:22→20:29)
[2016-08-26] MEDS: SLF 3 ML SYR IV SCH ×3 (04:35→20:45)
[2016-08-26 06:00] VITALS: BP 122/74
[2016-08-26 06:49] LABS: BASO % 0.1 % (0.0-1.0); EOS # 0.1 K/mm3 (0.0-0.50); EOS % 0.9 % (0.0-3.0); LARGE UNSTAINED CELL # 0.1 K/mm3 (0.0-0.4); LARGE UNSTAINED CELL % 0.8 % (0.0-4.0); LYMPH # 0.8 K/mm3 (1.5-4.5); LYMPH % 5.9 % (24.0-44.0); MEAN CORPUSCULAR HEMOGLOBIN 31.5 pg (27.0-33.0); MEAN CORPUSCULAR HGB CONC 34.2 g/dl (32.0-36.5); MEAN CORPUSCULAR VOLUME 92.2 fl (80.0-96.0); MONO # 0.5 K/mm3 (0.0-0.8); MONO % 4.7 % (0.0-5.0); NEUTROPHILS # 10.1 K/mm3 (1.8-7.7); NEUTROPHILS % 87.6 % (36.0-66.0); PLATELET COUNT, AUTOMATED 168 k/mm3 (150-450); RED CELL DISTRIBUTION WIDTH 12.8 % (11.5-14.5); WHITE BLOOD COUNT 11.6 K/mm3 (4.0-10.0)
[2016-08-26 07:08] LABS: CALCIUM LEVEL 8.4 MG/DL (8.8-10.2); CREATININE FOR GFR 1.87 MG/DL (0.70-1.30); GLOMERULAR FILTRATION RATE 37.1 (>35); MAGNESIUM LEVEL 2.2 MG/DL (1.8-2.4); POTASSIUM SERUM 3.9 MEQ/L (3.5-5.1)
[2016-08-26] MEDS: BUDESONIDE 0.5 MG/2 ML INHALATION SUSPENSION INH SCH ×2 (07:23→20:36)
[2016-08-26] MEDS: SENOKOT S TAB PO SCH ×2 (09:00→20:29)
[2016-08-26] MEDS: MULTIVITAMINS/MINERALS THERAP 1 TAB PO SCH (09:08)
[2016-08-26] MEDS: guaiFENesin ER 600 MG TAB PO SCH ×2 (09:08→20:29)
[2016-08-26] MEDS: THIAMINE 100 MG TAB PO SCH (09:08)
[2016-08-26] MEDS: ENOXAPARIN 30 MG/0.3 ML SYR (J1650) SC SCH (09:08)
[2016-08-26] MEDS: NICOTINE 21MG/24HR 1 EA TRANSDERMAL TD SCH (09:08)
[2016-08-26] MEDS: FOLIC ACID 1 MG TAB PO SCH (09:08)
[2016-08-26] MEDS: FUROSEMIDE 40 MG/4 ML VIAL (J1940) IV SCH ×2 (09:08→17:22)
[2016-08-26] MEDS: METOPROLOL SUCC *XL* 25MG TAB (TopROL *XL*) PO SCH (09:09)
[2016-08-26] MEDS: OSELTAMIVIR 6 MG/ML 60ML SUSP PO SCH ×2 (09:09→20:29)
--- NOTE | 2016-08-26 10:53 | IPNPDOC ---
Date Seen The patient was seen on 08/26/16. Progress Note SUBJECTIVE: Patient tells me that he feels well he has no complaints OBJECTIVE PHYSICAL EXAMINATION: VITAL SIGNS: Please see below. GENERAL: Disheveled obese elderly laying in bed he does not appear to be in any acute distress whatsoever. The patient is awake alert oriented 3 HEENT:he has moist mucous membranes difficult to assess for any elevation CVP secondary to body habitus CARDIOVASCULAR: S1-S2. RESPIRATORY: Prolonged expiratory phase good air movement. ABDOMINAL: obese bowel sounds are present abdomen soft EXTREMITIES: No clubbing cyanosis or 1+ edema b/l LABORATORY DATA: Please see below. MICROBIOLOGY: Influenza A H3 positive Please see below. IMAGING: Renal ultrasound revealed solitary bilateral renal cysts otherwise normal CT scan of the chest reveals no acute mediastinal or pleural parenchymal process CT scan of the head revealed age-related atrophy and microvascular ischemic changes no acute intracranial hemorrhage infarction or mass effect Echocardiogram: 1. Normal left ventricular size with probably moderately increased left ventricular wall thickness. Left ventricular systolic function is normal, estimated at 60% to 65%. 2. Subjectively, the left atrium may be mildly enlarged. Normal right atrium and right ventricle. 3. The atrial septum appeared to be normal without evidence of defect or shunt. 4. Normal aortic root. 5. No pericardial effusion seen. DVT prophylaxis ordered?: Lovenox 30 subcutaneous daily ASSESSMENT AND PLAN: This is a 80-year-old man with status post fall with inability to get up and pressing his life alert. PROBLEMS: 1. Fall: Likely secondary to metabolic encephalopathy, the patient is currently being treated for decompensated COPD as well as influenza viral infection. The patient also is given his advanced age may have some mild cognitive impairment at his baseline although he does live alone and does abuse alcohol drinking reportedly one bottle of wine per day. At the present time the patient is awake alert and oriented to person place time is able to tell me the year month where he is and why he is here. We'll continue to have the patient work with physical therapy, the patient has chronic low back pain secondary to spinal stenosis with lumbar radiculopathy he is not safe for DC at this time. 2. Influenza infection: The patient is currently at his baseline on room air oxygen. He is on day 5 of Tamiflu and appears to be improving. The patient is also currently on treatment for community acquired pneumonia my suspicion for this is lower we'll continue with Levaquin day 5 ABx for the time being 3. 9 beats of nonsustained ventricular tachycardia: Patient is on a betablocker , his [employer] optmized EF is preserved., 4. History of alcohol abuse: See Rx when necessary he is not exhibiting any signs or symptoms of withdrawal at this time he has never had withdrawal seizure continue with thiamine and multivitamin and folic acid 5. BPH: The patient has been started on Flomax he was retaining urine at the time of his admission he has since had his bourne removed, we will continue to monitor his PVR's he is voiding well at this time. 6. Chronic kidney disease: Patient's renal function is at its baseline 7. Mild acutely decompensated Diastolic CHF: patient is mildly overloaded, will continue to diurese him gently. DISPOSITION: Patient is a DNR/DNI we'll continue to follow him closely, he may be ready for discharge within the next 24-48 hrs, pending PT and volume status. VS[facility] Sign[facility]/I&O Vital Signs Date Time Temp Pulse Resp B/P Pulse Ox O2 Delivery O2 Flow Rate FiO2 08/26/16 09:09 83 122/74 08/26/16 08:00 Room Air 08/26/16 06:00 96.0 16 96 08/24/16 20:00 2.0 I&O- Last 24 Hours up to 6 AM 08/26/16 05:59 Intake Total 2280 ml Output Total 1850 ml Balance 430 ml Laboratory Data 24H LABS Laboratory Tests 2 08/26/16 06:21: Anion Gap 12, White Blood Count 11.6H, Red Blood Count 5.10, Hemoglobin 16.1, Hematocrit 47.0, Mean Corpuscular Volume 92.2, Mean Corpuscular Hemoglobin 31.5 , Mean Corpuscular Hemoglobin Concent 34.2, Red Cell Distribution Width 12.8, Platelet Count 168, Neutrophils (%) (Auto) 87.6H, Lymphocytes (%) (Auto) 5.9L, Monocytes (%) (Auto) 4.7, Eosinophils (%) (Auto) 0.9, Basophils (%) (Auto) 0.1, Neutrophils # (Auto) 10.1H, Lymphocytes # (Auto) 0.8L, Monocytes # (Auto) 0.5, Eosinophils # (Auto) 0.1, Basophils # (Auto) 0.0, Blood Urea Nitrogen 49H, Creatinine 1.87H, Sodium Level 139, Potassium Level 3.9, Chloride Level 104, Carbon Dioxide Level 23, Calcium Level 8.4L, Glomerular Filtration Rate 37.1, Large Unclassified Cells # 0.1, Large Unclassified Cells % 0.8, Magnesium Level 2.2 CBC/BMP Laboratory Tests 08/26/16 06:21 Calcium Level 8.4 L, Red Blood Count 5.10, Mean Corpuscular Volume 92.2, Mean Corpuscular Hemoglobin 31.5, Mean Corpuscular Hemoglobin Concent 34.2, Red Cell Distribution Width 12.8, Neutrophils (%) (Auto) 87.6 H, Lymphocytes (%) (Auto) 5.9 L, Monocytes (%) (Auto) 4.7, Eosinophils (%) (Auto) 0.9, Basophils (%) (Auto ) 0.1, Neutrophils # (Auto) 10.1 H, Lymphocytes # (Auto) 0.8 L, Monocytes # ( Auto) 0.5, Eosinophils # (Auto) 0.1, Basophils # (Auto) 0.0 Microbiology Microbiology 08/22/16 Blood Culture - Preliminary, Resulted No Growth after 72 hours. All specime... 08/24/16 Gastrointestinal Tract Panel (PCR) - Final, Complete 08/22/16 Respiratory Virus Panel (PCR) (CLAUDIA) - Final, Complete Influenza A H3 08/23/16 Urine Culture - Final, Complete BELKIS QUIÑONES MD Aug 26, 2016 10:53
[2016-08-26 14:00] VITALS: BP 140/80
[2016-08-26 14:17] LABS: GC Oxazepam >1000 ng/mL (Cutoff=300)
[2016-08-26] MEDS: LevoFLOXacin 250 MG TABLET PO SCH (17:22)
[2016-08-26 20:00] VITALS: BP 140/63
[2016-08-26] MEDS: TAMSULOSIN 0.4 MG CAP PO SCH (20:28)
[2016-08-26] MEDS: ACETAMINOPHEN TAB 650MG DOSE (2X325MG) PO PRN (23:25)
[2016-08-26] MEDS ORDERED: ACETAMINOPHEN TAB 650MG DOSE (2X325MG) PO ONE (23:30)
--- NOTE | 2016-08-27 00:10 | REPUSA ---
Clinical statement: Pain. Comparison: None. Findings: 2 views of the abdomen were obtained. A nonobstructive bowel gas pattern is noted. There is normal amount of stool appreciated within the colon. There is no free air. There are no abnormal mas ses or calcifications. The osseous structures and soft tissues are unremarkable. Impression: No acute finding.
--- NOTE | 2016-08-27 00:14 | IPN ---
DATE: 08/26/2016 I was called to the bedside due to patient complaint of right lower quadrant abdominal discomfort. Per nursing, his bowel regimen has been discontinued due to three bowel movements yesterday and three the day before which were loose. Gastrointestinal (GI) panel was negative for Clostridium difficile (C diff). The patient denies nausea or vomiting. Describes the pain as achy, comes and goes and he has had this sort of pain for the past 6 months, has not been evaluated by a physician. It occurs at rest, sometimes exertional, not related to meals. No prior history of hernias, colitis or diverticulitis in the past. He has had no fever. He is tolerating his diet well. The patient denies any dysuria, urgency, frequency. Denies any history of kidney stones. PHYSICAL EXAMINATION: VITAL SIGNS: Temperature 98.1, pulse 65, respiratory rate 18, blood pressure 140/63, 95% on room air. GENERAL: The patient is awake, alert, oriented, answering questions appropriately. LUNGS: Lungs are clear to auscultation. No wheezing, rales, or rhonchi. HEART: S1, S2, sinus rhythm. ABDOMEN: Soft, slightly tender right lower quadrant by the inguinal region but no rebound, guarding. No rigidity. Positive bowel sounds times four quadrants. EXTREMITIES: No cyanosis, clubbing, 1+ pitting edema bilaterally. LABORATORY DATA: 08/26/2016 laboratory data: CBC, metabolic panel have been reviewed. I have asked for liver function test, which is not available at the moment. Microbiology: 08/24/2016 GI panel: Negative. ASSESSMENT AND PLAN: This is an 80-year-old male who complains of right lower quadrant abdominal pain. No signs of any hernia. No erythema. No significant tenderness. The patient is passing gas. Currently does not appear to be an acute abdomen. Will check liver function test, check an abdominal film. Most likely some colitis. Will continue to monitor for now. If worsening symptoms, may benefit from CT abdomen and pelvis and recheck gi panel for further evaluation. [facility]
[2016-08-27 01:04] LABS: ALBUMIN 3.1 GM/DL (3.2-5.2); ALBUMIN/GLOBULIN RATIO 0.86 (1.00-1.93); BILIRUBIN,DIRECT 0.1 MG/DL (0.0-0.2); BILIRUBIN,TOTAL 0.4 MG/DL (0.2-1.0); TOTAL PROTEIN 6.7 GM/DL (6.4-8.2)
[2016-08-27] MEDS: IPRATROPIUM 0.5MG/ALBUTEROL 2.5MG INH SOL UD 3ML (DUONEB)(J7620) NEB SCH ×3 (01:09→12:52)
[2016-08-27 02:00] VITALS: BP 140/60
[2016-08-27] MEDS: methylPREDNISolone INJ 40 MG/1 ML VIAL (J2920) IV SCH ×2 (04:00→12:07)
[2016-08-27] MEDS: SLF 3 ML SYR IV SCH ×2 (05:02→14:03)
[2016-08-27 06:00] VITALS: BP 140/70
[2016-08-27] MEDS: BUDESONIDE 0.5 MG/2 ML INHALATION SUSPENSION INH SCH (07:12)
[2016-08-27 07:35] LABS: BASO % 0.1 % (0.0-1.0); EOS % 0.3 % (0.0-3.0); LARGE UNSTAINED CELL # 0.2 K/mm3 (0.0-0.4); LARGE UNSTAINED CELL % 1.7 % (0.0-4.0); LYMPH # 0.7 K/mm3 (1.5-4.5); LYMPH % 5.2 % (24.0-44.0); MEAN CORPUSCULAR HEMOGLOBIN 30.3 pg (27.0-33.0); MEAN CORPUSCULAR HGB CONC 33.4 g/dl (32.0-36.5); MEAN CORPUSCULAR VOLUME 90.6 fl (80.0-96.0); MONO # 0.5 K/mm3 (0.0-0.8); NEUTROPHILS # 11.6 K/mm3 (1.8-7.7); NEUTROPHILS % 88.7 % (36.0-66.0); PLATELET COUNT, AUTOMATED 194 k/mm3 (150-450); RED CELL DISTRIBUTION WIDTH 12.8 % (11.5-14.5); WHITE BLOOD COUNT 13.1 K/mm3 (4.0-10.0)
[2016-08-27 07:53] LABS: CALCIUM LEVEL 8.6 MG/DL (8.8-10.2); GLOMERULAR FILTRATION RATE 34.3 (>35); MAGNESIUM LEVEL 2.4 MG/DL (1.8-2.4); POTASSIUM SERUM 3.5 MEQ/L (3.5-5.1)
[2016-08-27 09:00] VITALS: BP 130/65
[2016-08-27] MEDS: SENOKOT S TAB PO SCH (10:00)
[2016-08-27] MEDS: FOLIC ACID 1 MG TAB PO SCH (10:01)
[2016-08-27] MEDS: guaiFENesin ER 600 MG TAB PO SCH (10:01)
[2016-08-27] MEDS: THIAMINE 100 MG TAB PO SCH (10:01)
[2016-08-27 10:03] VITALS: BP 130/65
[2016-08-27] MEDS: MULTIVITAMINS/MINERALS THERAP 1 TAB PO SCH (10:03)
[2016-08-27] MEDS: METOPROLOL SUCC *XL* 25MG TAB (TopROL *XL*) PO SCH (10:03)
[2016-08-27] MEDS: NICOTINE 21MG/24HR 1 EA TRANSDERMAL TD SCH (10:03)
[2016-08-27] MEDS: OSELTAMIVIR 6 MG/ML 60ML SUSP PO SCH (10:04)
[2016-08-27] MEDS: ENOXAPARIN 30 MG/0.3 ML SYR (J1650) SC SCH (10:05)
[2016-08-27] MEDS: FUROSEMIDE 40 MG/4 ML VIAL (J1940) IV SCH (10:09)
[2016-08-27] MEDS ORDERED: THIA100TA PO (10:10)
[2016-08-27] MEDS ORDERED: VITMTA PO (10:10)
[2016-08-27] MEDS ORDERED: NICO21PAT TD (10:10)
[2016-08-27] MEDS ORDERED: LEVA250T PO (10:10)
[2016-08-27] MEDS ORDERED: FLOM5CAP PO (10:10)
[2016-08-27] MEDS ORDERED: PROA1AER INH (10:10)
[2016-08-27] MEDS ORDERED: METO25TA74 PO (10:10)
[2016-08-27] MEDS ORDERED: TIOT18INH INH (10:10)
[2016-08-27] MEDS ORDERED: PRED10TA PO (10:11)
[2016-08-27] MEDS ORDERED: LASI20TA PO (10:21)
[2016-08-27] MEDS: ACETAMINOPHEN TAB 650MG DOSE (2X325MG) PO PRN (10:56)
[2016-08-27 14:00] VITALS: BP 133/89
--- NOTE | 2016-08-27 15:04 | DSES ---
DATE OF ADMISSION: 08/22/2016 DATE OF DISCHARGE: DISCHARGE DIAGNOSIS: Influenza infection. SECONDARY DIAGNOSES: 1. Community acquired pneumonia. 2. Decompensated chronic obstructive pulmonary disease (COPD). 3. Metabolic encephalopathy. 4. Urinary retention. 5. Nonsustained ventricular tachycardia. 6. Alcohol abuse. 7. Tobacco abuse. 8. Benign prostatic hypertrophy (BPH). 9. Chronic kidney disease. 10. Mildly acutely decompensated diastolic congestive heart failure (CHF). 11. Hepatitis. HOSPITAL COURSE: The patient is an 80-year-old man who had a fall at home. He has a history of noncompliance and not seeing doctors and not following up or taking medications. He was unable to get up and so he pressed his Life Alert. The patient was found to be influenza positive and have a bad cough. There was also suspicion that he may have had a superimposed community-acquired pneumonia with this and as such he was treated with Tamiflu for 5 days and antibiotics. He was seen by physical therapy (PT) and cleared to be discharged home to his previous living environment where he does not have to do any stairs. His hospital course was complicated by urinary retention, which did resolve with starting Flomax. He also had nine beats of nonsustained ventricular tachycardia. He did have an echocardiogram that revealed likely diastolic dysfunction with preserved ejection fraction. He had no further episodes during his hospital course. The patient has a history of alcohol abuse. He did not exhibit any signs or symptoms of withdrawal. On the day prior to discharge, the patient complained of some belly pain, which had actually been there for several months and he just figured that he would mention it while he was here. It was not severe. He was tolerating a regular diet and ambulating independently and passing gas and stool with no associated nausea, vomiting. No association with food. His liver function tests were found to be slightly abnormal. This was thought to be likely related to his influenza infection. SUBJECTIVE: Today, the patient reports that he is feeling well. He wants to go home. He denies any complaints. He tells me that the pain is only very mild on his right side and has been there for quite a long time. He does not wish to have any further evaluation of it done at this time. He states that he will do it in the outpatient setting. OBJECTIVE: VITAL SIGNS: Temperature 97.7, pulse 78, respiratory rate 22, blood pressure 140/70, oxygen saturation 95% on room air. GENERAL: He is a disheveled, elderly, man watching television and eating breakfast in no distress. HEENT: He is malodorous and disheveled. There is no elevation of central venous pressure. CARDIOVASCULAR EXAM: S1, S2. Regular. RESPIRATORY EXAM: Clear. ABDOMINAL EXAM: Grossly obese. There is no tenderness in the right upper quadrant. EXTREMITIES: No clubbing or cyanosis. There is trace pretibial edema. LABORATORY STUDIES: WBC 13.1, hemoglobin 16.4, hematocrit 49.2, platelet count is 194. Chemistry panel: Sodium 141, potassium 3.5, chloride 104, bicarbonate 25, BUN 62, creatinine 2. AST 62, ALT 91. Microbiology: GI PCR panel is negative. Blood cultures are negative. Urine culture is negative. Influenza swab is positive for influenza AH3. IMAGING: The patient did have a CT scan of the head, which revealed age-related atrophy and microvascular ischemic changes, as well as a CT scan of the chest, which revealed no acute mediastinal pleural parenchymal process. He also had a renal ultrasound that revealed solitary bilateral renal cysts, otherwise normal renal ultrasound. He did have an abdominal x-ray, which revealed no acute findings. ASSESSMENT AND PLAN: This is an 80-year-old man who presented status post fall with metabolic encephalopathy secondary to influenza and positive community-acquired pneumonia. His hospital course was complicated by nine beats of nonsustained ventricular tachycardia, urinary retention. 1. Influenza infection. The patient is completing 5 days of Tamiflu. He is improved. His respiratory status is back to baseline. Suspicion for community-acquired pneumonia is lower; however, he will complete a 7-day course of levofloxacin and we will treat him for this as well. At this time, the patient is at his functional respiratory baseline. He is stable for discharge home. He has been cleared by physical therapy (PT). 2. Fall, likely secondary to metabolic encephalopathy, which is resolved. 3. Nine beats of nonsustained ventricular tachycardia. The patient is on a beta analy and potassium and magnesium have been optimized. His echocardiogram revealed preserved ejection fraction. 4. Mildly acutely decompensated diastolic congestive heart failure (CHF). The patient has been aggressively diuresed while here. Echocardiogram reveals moderately increased left ventricular thickness suspicious for diastolic dysfunction. He has had a mild rise in his creatinine today and as such we will discontinue any further Lasix. He is on a beta analy. His blood pressure is controlled. 5. History of alcohol abuse. Cessation counseling offered. He did exhibit any signs or symptoms of withdrawal during this stay. He is on thiamine and multivitamin. 6. Tobacco abuse. Cessation counseling offered. 7. Chronic obstructive pulmonary disease (COPD), likely diagnosis given he has greater than 40 pack year history and is actively smoking. He will be on prednisone taper. I will send him home with prescriptions for albuterol and Spiriva, which are new medications for him. Could recommend referral for pulmonary function testing in the outpatient setting. 8. Benign prostatic hypertrophy (BPH) and urinary retention. The patient did have urinary retention during his stay; however, it did resolve with Flomax. He is making urine on his own very well at this time. 9. Deep vein thrombosis (DVT) prophylaxis. The patient is on Lovenox. 10. Disposition. The patient is being discharged home where he lives independently. He has been cleared by physical therapy (PT). He will followup at the [facility] on 09/10/2016 at 1:45. He is to have a CMP checked on 08/31/2016 with results sent to his primary care provider there. He is to have a 2 gram sodium diet. His activity is as prior to admission. He is to return to the emergency room if his symptoms worsen, avoid tobacco and alcohol products. MEDICATIONS: At the time of discharge: - ProAir HFA 180 mcg one puff inhaled every four hours as needed for shortness of breath - levofloxacin 250 mg daily for two more days - metoprolol succinate 25 mg daily - multivitamin one tablet daily - NicoDerm patch 21 mg per 24 hours transdermally daily - prednisone 10 mg tablets four tablets for 4 days, three tablets for 4 days, then two tablets for 4 days, then one tablet for 4 days, and then stop - Flomax 0.4 mg at night - thiamine 100 mg daily - Spiriva Handi-Haler one inhalation daily - simvastatin 40 mg at night Greater than 45 minutes was spent organizing disposition. [facility]
[2016-08-28 00:08] LABS: GC Oxazepam 22700 ng/mL (Cutoff=300)
== END 2016-08-27 14:39 | disposition home health service (06) | DRG 193 ==
LOC: M ED 03:25 → M ED INP 09:27 → M MSPAV 15:35 → M PCU 18:53 → M MS5PR 08-25 14:55
PROVIDERS: ADMIT Internal Medicine Nephrology; ATTEND Internal Medicine
DX: J10.00 Influenza due to other identified influenza virus with unspecified type of pneumonia (principal); G93.41 Metabolic encephalopathy; I50.33 Acute on chronic diastolic (congestive) heart failure; J44.1 Chronic obstructive pulmonary disease with (acute) exacerbation; N39.0 Urinary tract infection, site not specified; I47.2 Ventricular tachycardia; I13.0 Hypertensive heart and chronic kidney disease with heart failure and stage 1 through stage 4 chronic kidney disease, or unspecified chronic kidney disease; J18.9 Pneumonia, unspecified organism; N18.3 Chronic kidney disease, stage 3 (moderate); N40.1 Benign prostatic hyperplasia with lower urinary tract symptoms; R33.9 Retention of urine, unspecified; E78.5 Hyperlipidemia, unspecified; Z66 Do not resuscitate; M72.0 Palmar fascial fibromatosis [Dupuytren]; R19.7 Diarrhea, unspecified; F41.1 Generalized anxiety disorder; F10.10 Alcohol abuse, uncomplicated; D64.9 Anemia, unspecified; E66.9 Obesity, unspecified; M48.06 Spinal stenosis, lumbar region; F03.90 Unspecified dementia, unspecified severity, without behavioral disturbance, psychotic disturbance, mood disturbance, and anxiety; F17.210 Nicotine dependence, cigarettes, uncomplicated; Z88.0 Allergy status to penicillin; Z79.899 Other long term (current) drug therapy; Z91.19 Patient's noncompliance with other medical treatment and regimen; Z91.14 Patient's other noncompliance with medication regimen; Z68.32 Body mass index [BMI] 32.0-32.9, adult

== ENCOUNTER → 2016-10-01 | Outpatient (REF) | payer MEDICARE, MEDICAID ==
[~2016-10-01] MED LIST: FLOM5CAP PO; LASI20TA PO; LEVA250T PO; METO25TA74 PO; NICO21PAT TD; PRED10TA PO; PROA1AER INH; PT COMMENT; THIA100TA PO; TIOT18INH INH; VITMTA PO; ZOCO40TA PO
[2016-10-01 19:56] LABS: CALCIUM LEVEL 8.4 MG/DL (8.8-10.2); CREATININE FOR GFR 1.72 MG/DL (0.70-1.30); GLOMERULAR FILTRATION RATE 40.8 (>35); POTASSIUM SERUM 4.3 MEQ/L (3.5-5.1)
== END ==
LOC: M SFHCADAM 15:06
PROVIDERS: ATTEND Family Medicine
DX: R73.01 Impaired fasting glucose (principal); E66.9 Obesity, unspecified; N18.9 Chronic kidney disease, unspecified

== ENCOUNTER → 2016-11-10 | Outpatient (REF) | payer MEDICARE, MEDICAID | LOC: M SFHCADAM 12:37 | PROVIDERS: ATTEND Family Medicine | DX: R73.01 Impaired fasting glucose (principal) ==

== ENCOUNTER 2016-11-13 18:46 | Inpatient (IN) | payer MEDICARE, MEDICAID ==
[~2016-11-13] VITALS: Ht 170.2 cm; Wt 96.4 kg
[2016-11-13] MEDS ORDERED: FURO20TA2 PO (19:11)
[2016-11-13] MEDS ORDERED: cefTRIAXone SOD 1 GM in D5W MINI-BAG PLUS 50 ML IV ONE (19:45)
[2016-11-13 20:33] LABS: BASO % 0.4 % (0.0-1.0); EOS # 1.2 K/mm3 (0.0-0.50); EOS % 9.3 % (0.0-3.0); LARGE UNSTAINED CELL # 0.3 K/mm3 (0.0-0.4); LARGE UNSTAINED CELL % 2.3 % (0.0-4.0); LYMPH # 2.2 K/mm3 (1.5-4.5); LYMPH % 17.9 % (24.0-44.0); MEAN CORPUSCULAR HEMOGLOBIN 32.1 pg (27.0-33.0); MEAN CORPUSCULAR HGB CONC 33.8 g/dl (32.0-36.5); MEAN CORPUSCULAR VOLUME 94.9 fl (80.0-96.0); MONO # 0.8 K/mm3 (0.0-0.8); MONO % 6.7 % (0.0-5.0); NEUTROPHILS # 7.8 K/mm3 (1.8-7.7); NEUTROPHILS % 63.4 % (36.0-66.0); PLATELET COUNT, AUTOMATED 204 k/mm3 (150-450); RED CELL DISTRIBUTION WIDTH 13.2 % (11.5-14.5); WHITE BLOOD COUNT 12.4 K/mm3 (4.0-10.0)
[2016-11-13 20:46] LABS: ANION GAP 7 MEQ/L (8-16); BLOOD UREA NITROGEN 17 MG/DL (7-18); CARBON DIOXIDE LEVEL 29 MEQ/L (21-32); CHLORIDE LEVEL 105 MEQ/L (98-107); CREATININE FOR GFR 1.74 MG/DL (0.70-1.30); GLOMERULAR FILTRATION RATE 40.2 (>35); GLUCOSE, FASTING 94 MG/DL (83-110); SODIUM LEVEL 141 MEQ/L (136-145)
[2016-11-13] MEDS ORDERED: FLOM5CAP PO (21:49)
[2016-11-13] MEDS ORDERED: METO25TA74 PO (21:49)
[2016-11-13] MEDS ORDERED: PERM5CR EXT (21:52)
[2016-11-13] MEDS ORDERED: DOXY100T PO (21:52)
[2016-11-13] MEDS ORDERED: IPRATROPIUM 0.5MG/ALBUTEROL 2.5MG INH SOL UD 3ML (DUONEB)(J7620) NEB PRN (23:00)
[2016-11-13] MEDS ORDERED: BISACODYL 5 MG TAB PO PRN (23:00)
[2016-11-13] MEDS ORDERED: ONDANSETRON 4MG/2ML VIAL (J2405) IV PRN (23:00)
[2016-11-13] MEDS ORDERED: ACETAMINOPHEN TAB 650MG DOSE (2X325MG) PO PRN (23:00)
[2016-11-13 23:30] VITALS: BP 143/67
[2016-11-14] MEDS: HEPARIN SOD (PORCINE) 5000 UNITS/ML VIAL SC SCH ×4 (00:23→22:37)
[2016-11-14] MEDS: TAMSULOSIN 0.4 MG CAP PO SCH ×2 (00:23→22:36)
[2016-11-14] MEDS: FUROSEMIDE 20 MG TAB PO SCH ×2 (00:24→22:36)
[2016-11-14] MEDS: SIMVASTATIN 40 MG TAB PO SCH ×2 (00:25→22:36)
[2016-11-14] MEDS: METOPROLOL SUCC *XL* 25MG TAB (TopROL *XL*) PO SCH ×2 (00:25→22:45)
--- NOTE | 2016-11-14 00:40 | HPE ---
DATE OF ADMISSION: 11/13/2016 PRIMARY CARE PROVIDER: Dr. Cabrera CODE STATUS: DO NOT RESUSCITATE/DO NOT INTUBATE CHIEF COMPLAINT: Rash, lesion and pain in both upper extremities. HISTORY OF PRESENT ILLNESS: Mr. Beltran is an 81-year-old male with multiple past medical history, who presented to the emergency room due to experiencing rash and lesion, as well as pain in both upper extremities. The patient expressed that he noticed the rash and lesion about 4 weeks ago. The patient expressed that at that time he did not have any pain; however, he noticed the skin lesion has increased. The patient was accompanied by his niece, who is also his healthcare proxy (Ms. Meghann Robins) phone number is [phone], who expressed that about three weeks ago she bought a package of soap for the patient, which was new; however, the patient had this rash before using the new soap. The patient does not have any pets. He has not been exposed to pets. The patient denies any new lotion or any new clothes. The patient does not have a new diet or medications. The patient lives in senior citizen housing in [facility] [address]. According to the niece, the apartment has been inspected and no insect contamination was noticed. The patient also denies being bit by insects. The patient expressed that about one week ago he started noticing the small macules on both upper extremities become more erythemic and painful. The patient did not experience any fever, chills or night sweats; however, the tenderness on the right arm has increased for the past few days. The patient expressed that the last time that he took a shower was three days ago; however, according to the niece, the patient has low hygiene and he does not take a shower frequently and according to her, probably the last shower was one year ago. The patient lives alone and sometimes his niece visits him and helps him with doctor appointments. The patient has been seen by Dr. Russell on 11/10/2016, who prescribed the patient doxycycline 100 mg twice a day for 7 days, as well as permethrin cream 5 % one application; however, according to the niece, the patient has not been compliant with these medications. ALLERGIES: PENICILLIN causes hives. HOME MEDICATIONS: - doxycycline 100 mg by mouth every 12 hours for 7 days - furosemide one tablet by mouth at night - metoprolol succinate 25 mg by mouth - permethrin 5% cream - Zocor 40 mg by mouth at night - Flomax 0.4 mg by mouth at night PAST MEDICAL HISTORY: 1. Chronic kidney disease stage III. 2. Benign prostatic hypertrophy (BPH) . 3. Hyperlipidemia. 4. Hypertension. 5. Congestive heart failure (CHF) grade 1. 6. Chronic obstructive pulmonary disease (COPD). 7. Dupuytren's contracture. 8. Generalized anxiety disorder. 9. Tubular adenoma of the colon. 10. Chronic anemia. 11. Obesity. 12. Chronic back pain. 13. Right radiculopathy. 14. Spinal stenosis in the lumbar region. PAST SURGICAL HISTORY: 1. Back surgery. 2. Lumbar laminectomy. 3. Right inguinal hernia repair. SOCIAL HISTORY: The patient lives alone; however, his niece provides him with help for doctor appointments. The patient expressed that he drinks about a glass of wine every night; however, according to the niece, the patient drinks more than a glass per night. The patient smoked about one pack a day since age 12 and he is still a smoker. The patient expressed that for nine years he has stopped smoking; however, he started again. The patient denies illicit drug use. The patient has no children. The patient has no pets. The patient has not traveled outside of the [place]. 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 The patient lives in senior citizen housing, [facility] [address]. FAMILY HISTORY: The patient has one brother who due to old age. The patient had three sisters who due to old age. Patient's father due to leukemia and heart attack. The patient's mother at age 88 due to old age. REVIEW OF SYSTEMS: GENERAL: The patient denies fevers, chills, night sweats, weight loss, weight gain. HEENT: The patient denies acute vision or hearing changes. The patient also denies problem with chewing food or sinusitis. NECK: The patient denies decreased motion of his neck. HEART: The patient denies palpitation, racing or skipping heartbeat, chest pain. LUNGS: The patient denies shortness of breath; however, the patient has a cough with no sputum production. According to the niece, the becomes dyspneic with activities; however, the patient does not have any breathing treatments or on oxygen. ABDOMEN: The patient denies abdominal pain, nausea, vomiting, diarrhea, constipation, melena, hematochezia or hematemesis. EXTREMITIES: The patient has rash and lesions in both upper extremities, as well as in the abdomen and lower extremities. The patient also has an area of painful erythema on the upper extremities bilaterally. NEUROLOGIC: The patient has no history of transient ischemic attacks or seizure activity. PHYSICAL EXAMINATION: VITAL SIGNS: Temperature 97.1, pulse 97, respiratory rate 18, blood pressure 141/60, pulse oximetry 96% on room air. GENERAL APPEARANCE: The patient was lying in the bed in no acute distress. The patient was awake, alert and oriented to time, place and person. HEENT: Normocephalic, atraumatic. Pupils are equal and reactive to light. Oral mucosa is moist. NECK: Soft. Supple. No lymphadenopathy or organomegaly. Jugular venous distention (JVD) cannot be evaluated due to extended neck. HEART: Regular rate and rhythm. Normal S1, S2. LUNGS: The patient has inhale and exhale wheezing, as well as crackles at the base of the lung. ABDOMEN: Soft. Nontender. Positive bowel sounds in all quadrants. EXTREMITIES: The patient has pitting lower extremity edema. The patient has +2 pulses in both lower extremities. Feet were warm. The patient has normal range of motion in both upper and lower extremities. The patient has normal strength in both upper and lower extremities. Power is 5/5. NEUROLOGIC: The patient has cranial nerves II-XII intact. No focal deficiencies. SKIN: The patient has small macules, as well as bumps and areas of erythema, which are warm and tender to palpation in both upper extremities. The patient also has macules on his abdomen, as well as his back and lower extremities. Some of the macules were bleeding, possibly secondary to scratching. LABORATORY DATA: White blood cells 12.4, red blood cells 4.83, hemoglobin 15.2, hematocrit 45.8, MCV 94.9, MCH 82.1, MCHC 33.8, RDW 13.2, platelet count 204, neutrophil percentage 63.4, lymphocyte percentage 17.9, monocyte percentage 6.9, eosinophil percentage 9.3, basophil percentage 0.4. Sodium 141, potassium 4, chloride 105, carbon dioxide 29, anion gap 7, BUN 17, creatinine 1.74, GFR 40.2, fasting glucose 94, calcium 8, C-reactive protein is less than 30. Blood culture is pending at this time. ASSESSMENT AND PLAN: 1. Infection. The patient possibly experiences cellulitis versus erysipelas. The patient was started on treatment as an outpatient; however, the patient failed outpatient treatment. The patient will be screened for methicillin resistant Staphylococcus aureus (MRSA); however, at this time, I will start the patient on Teflaro, which is renally dosed. The patient has leukocytosis; however, the patient's vitals are stable at this time. We will continue to monitor the patient for any abnormal symptoms. 2. Chronic kidney disease. The patient has stage III kidney disease. At this time, we will continue monitoring renal function. 3. Diastolic congestive heart failure (CHF). The patient had an echocardiogram , which was done on 08/24/2016, which indicated that the patient has ejection fraction of 60 to 65%. The patient has diastolic dysfunction grade 1. At this point, we will continue the patient on current dosage of Toprol XL, as well as Lasix. 4. Hypertension. We will continue the patient on Toprol XL and Lasix. The patient's blood pressure is stable at this time. 5. Chronic kidney disease stage III. The patient's baseline creatinine is 1.7 to 1.8. At this time, the patient is at his baseline. 6. Chronic obstructive pulmonary disease (COPD). The patient is on no breathing treatments at home. However, I have started the patient on DuoNeb. The patient is on oxygen. 7. History of benign prostatic hypertrophy (BPH) . The patient is on Flomax. We will continue monitoring input and output. 8. Deep vein thrombosis (DVT) prophylaxis. The patient is on heparin 5000 units every 8 hours subcutaneously. 9. Hyperlipidemia. We will continue the patient on Zocor 40 mg at night by mouth. 10. Generalized anxiety. The patient is stable, this is a chronic issue. 11. Chronic back pain. The patient has spinal stenosis in the lumbar region. At this time, the patient is stable. My preceptor for this patient encounter was Dr. Babin. The preceptor was physically present in the building during the encounter and was fully available. As needed, all aspects of the patient interview, examination, medical decision making process, and medical care plan development were reviewed and approved by the preceptor. The preceptor is aware and concurs with the plan as stated in the body of this note and will attest to such by his/her cosignature. BARBARA
[2016-11-14] MEDS: IPRATROPIUM 0.5MG/ALBUTEROL 2.5MG INH SOL UD 3ML (DUONEB)(J7620) NEB SCH ×4 (01:37→18:22)
[2016-11-14] MEDS: CEFTAROLINE FOSAMIL 400 MG in D5W MINI-BAG PLUS 50 ML IV SCH ×2 (02:41→14:28)
[2016-11-14 06:00] VITALS: BP 142/70
[2016-11-14 06:10] LABS: BASO # 0.1 K/mm3 (0.0-0.2); BASO % 0.5 % (0.0-1.0); EOS # 1.2 K/mm3 (0.0-0.50); EOS % 9.9 % (0.0-3.0); LARGE UNSTAINED CELL # 0.2 K/mm3 (0.0-0.4); LARGE UNSTAINED CELL % 1.6 % (0.0-4.0); LYMPH # 2.2 K/mm3 (1.5-4.5); LYMPH % 16.9 % (24.0-44.0); MEAN CORPUSCULAR HEMOGLOBIN 31.4 pg (27.0-33.0); MEAN CORPUSCULAR HGB CONC 33.8 g/dl (32.0-36.5); MEAN CORPUSCULAR VOLUME 92.9 fl (80.0-96.0); MONO # 0.7 K/mm3 (0.0-0.8); MONO % 6.1 % (0.0-5.0); NEUTROPHILS # 7.6 K/mm3 (1.8-7.7); PLATELET COUNT, AUTOMATED 196 k/mm3 (150-450); RED CELL DISTRIBUTION WIDTH 13.3 % (11.5-14.5); WHITE BLOOD COUNT 11.7 K/mm3 (4.0-10.0)
[2016-11-14 06:33] LABS: ALBUMIN/GLOBULIN RATIO 0.91 (1.00-1.93); BILIRUBIN,TOTAL 0.6 MG/DL (0.2-1.0); CALCIUM LEVEL 8.1 MG/DL (8.8-10.2); CREATININE FOR GFR 1.82 MG/DL (0.70-1.30); GLOMERULAR FILTRATION RATE 38.2 (>35); MAGNESIUM LEVEL 1.6 MG/DL (1.8-2.4); POTASSIUM SERUM 3.8 MEQ/L (3.5-5.1); TOTAL PROTEIN 6.3 GM/DL (6.4-8.2)
[2016-11-14 14:00] VITALS: BP 139/74
[2016-11-14] MEDS ORDERED: MAG SULF 1GM/100ML (MAG RUN) 1 GM in APPROPRIATE DILUENT 1 EA IV SCH (14:00)
[2016-11-14] MEDS: MULTIVITAMINS/MINERALS THERAP 1 TAB PO SCH (14:28)
[2016-11-14] MEDS: MAG SULF 1GM/100ML (MAG RUN) 1 GM in APPROPRIATE DILUENT 1 EA IV SCH ×2 (16:24→16:47)
[2016-11-14] MEDS ORDERED: PERMETHRIN 5% CREAM 60 GM TOP ONE (21:00)
[2016-11-14 22:00] VITALS: BP 160/64
--- NOTE | 2016-11-15 00:06 | IPNPDOC ---
Subjective Date Seen The patient was seen on 11/14/16. Subjective Chief Complaint/HPI The patient is a 81-year-old male admitted with a reason for visit of Cellulitis. Events since last encounter Resting comfortably in bed. He denies pruritis, while scratching at his arm. Later this evening, nursing called and reported that he had a fall without injury while trying to get out of bed without calling. Constitutional: Reports: Malaise, Fatigue, Denies: Chills, Fever ENT: Denies: Head Aches Pulmonary: Denies: Dyspnea, Cough Cardiovascular: Denies: Chest Pain, Palpitations Gastrointestinal: Denies: Nausea, Vomiting, Abdominal Pain, Diarrhea, Constipation Musculoskeletal: Reports: Back Pain, Arm Pain Psych: Reports: Mood Normal Objective Physical Examination General Exam: Positive: Alert, Cooperative, No Acute Distress Eye Exam: Positive: Conjunctiva & lids normal Neck Exam: Positive: Supple Chest Exam: Positive: Clear to auscultation, Normal air movement Heart Exam: Positive: Rate Normal Abdomen Exam: Positive: Normal bowel sounds, Soft, Negative: Tenderness Extremity Exam: Positive: Edema (trace) Skin Exam: Positive: Nl turgor and temperature, Rash (cellulitic changes in bilat AC (R extending up the arm) with some blistering; scattered erythematous macules on trunk, back, buttocks, arms, between finger webs), Pruritus Assessment /Plan Problems (1) Cellulitis Status: Acute Problem Text: On ceftaroline. Will monitor WBCs. I think the cellulitis is secondary, and developed after patient was scratching at the primary rash. Patient failed antibiotic treatment, as he only took one pill, per niece's report. (2) Rash and nonspecific skin eruption Status: Acute Problem Text: Patient seen in the office 11/10, and best guess of timeline at that point was perhaps 7-10 days duration. Discussed again with patient that I am not certain of the etiology of the primary rash. I have concern that it may be scabies, and I have ordered permethrin here that he was to have applied 4 days ago, since he did not have assistance to apply or wash off. Discussed with him that I do not wish to use steroids when he is fighting an infection. (3) Fall Status: Acute Problem Text: Per report, without injury. Ordered PT to eval and treat. (4) Chronic kidney disease Status: Chronic Problem Text: Will monitor. Baseline creatinine 1.7. (5) Hypertension Status: Chronic Problem Text: Continue home antihypertensives. Plan/VTE VTE Prophylaxis Ordered?: Yes VS, I&O, 24H, Fishbone Vital Signs/I&O Vital Signs Date Time Temp Pulse Resp B/P (MAP) Pulse Ox O2 Delivery O2 Flow Rate FiO2 11/14/16 22:45 104 160/64 11/14/16 22:00 97.6 20 97 Room Air I&O- Last 24 Hours up to 6 AM 11/14/16 05:59 Intake Total 170 ml Output Total 0 ml Balance 170 ml Laboratory Data 24H LABS Laboratory Tests 2 11/14/16 05:16: White Blood Count 11.7H, Red Blood Count 4.96, Hemoglobin 15.5, Hematocrit 46.0 , Mean Corpuscular Volume 92.9, Mean Corpuscular Hemoglobin 31.4, Mean Corpuscular Hemoglobin Concent 33.8, Red Cell Distribution Width 13.3, Platelet Count 196, Neutrophils (%) (Auto) 65.0, Lymphocytes (%) (Auto) 16.9L, Monocytes (%) (Auto) 6.1H, Eosinophils (%) (Auto) 9.9H, Basophils (%) (Auto) 0.5, Neutrophils # (Auto) 7.6, Lymphocytes # (Auto) 2.2, Monocytes # (Auto) 0.7, Eosinophils # (Auto) 1.2H, Basophils # (Auto) 0.1, Large Unclassified Cells % 1.6, Large Unclassified Cells # 0.2, Anion Gap 8, Glomerular Filtration Rate 38.2, Blood Urea Nitrogen 17, Creatinine 1.82H, Sodium Level 139, Potassium Level 3.8, Chloride Level 106, Carbon Dioxide Level 25, Calcium Level 8.1L, Aspartate Amino Transf (AST/SGOT) 17, Alanine Aminotransferase (ALT/SGPT) 17, Alkaline Phosphatase 63, Total Bilirubin 0.6, Total Protein 6.3L, Albumin 3.0L, Magnesium Level 1.6L, Albumin/Globulin Ratio 0.91L CBC/BMP Laboratory Tests 11/14/16 05:16 Red Blood Count 4.96, Mean Corpuscular Volume 92.9, Mean Corpuscular Hemoglobin 31.4, Mean Corpuscular Hemoglobin Concent 33.8, Red Cell Distribution Width 13.3 , Neutrophils (%) (Auto) 65.0, Lymphocytes (%) (Auto) 16.9 L, Monocytes (%) ( Auto) 6.1 H, Eosinophils (%) (Auto) 9.9 H, Basophils (%) (Auto) 0.5, Neutrophils # (Auto) 7.6, Lymphocytes # (Auto) 2.2, Monocytes # (Auto) 0.7, Eosinophils # (Auto) 1.2 H, Basophils # (Auto) 0.1, Calcium Level 8.1 L, Aspartate Amino Transf (AST/SGOT) 17, Alanine Aminotransferase (ALT/SGPT) 17, Alkaline Phosphatase 63, Total Bilirubin 0.6, Total Protein 6.3 L, Albumin 3.0 L Microbiology Microbiology 11/13/16 Blood Culture - Preliminary, Resulted No growth after 24 hours . All specim... 11/13/16 Blood Culture - Preliminary, Resulted No growth after 24 hours . All specim... 11/14/16 MRSA Screen, Received Pending ADAM JOYNER DO November 15, 2016 00:06
[2016-11-15] MEDS: IPRATROPIUM 0.5MG/ALBUTEROL 2.5MG INH SOL UD 3ML (DUONEB)(J7620) NEB SCH ×4 (01:47→19:29)
[2016-11-15] MEDS: CEFTAROLINE FOSAMIL 400 MG in D5W MINI-BAG PLUS 50 ML IV SCH ×2 (03:12→14:22)
[2016-11-15] MEDS: HEPARIN SOD (PORCINE) 5000 UNITS/ML VIAL SC SCH ×3 (05:38→21:10)
[2016-11-15 06:00] VITALS: BP 134/75
[2016-11-15] MEDS: BACITRACIN OINT 30GM TOP SCH ×3 (06:00→21:11)
[2016-11-15 06:11] LABS: BASO % 0.3 % (0.0-1.0); EOS # 1.2 K/mm3 (0.0-0.50); EOS % 10.7 % (0.0-3.0); LARGE UNSTAINED CELL # 0.2 K/mm3 (0.0-0.4); LARGE UNSTAINED CELL % 2.1 % (0.0-4.0); LYMPH # 1.9 K/mm3 (1.5-4.5); LYMPH % 14.9 % (24.0-44.0); MEAN CORPUSCULAR HEMOGLOBIN 32.6 pg (27.0-33.0); MEAN CORPUSCULAR HGB CONC 35.2 g/dl (32.0-36.5); MEAN CORPUSCULAR VOLUME 92.7 fl (80.0-96.0); MONO # 0.8 K/mm3 (0.0-0.8); MONO % 6.7 % (0.0-5.0); NEUTROPHILS # 7.3 K/mm3 (1.8-7.7); NEUTROPHILS % 65.3 % (36.0-66.0); PLATELET COUNT, AUTOMATED 173 k/mm3 (150-450); RED CELL DISTRIBUTION WIDTH 13.4 % (11.5-14.5); WHITE BLOOD COUNT 11.2 K/mm3 (4.0-10.0)
[2016-11-15 06:35] LABS: ALBUMIN 2.7 GM/DL (3.2-5.2); ALBUMIN/GLOBULIN RATIO 0.84 (1.00-1.93); BILIRUBIN,TOTAL 0.6 MG/DL (0.2-1.0); CREATININE FOR GFR 1.79 MG/DL (0.70-1.30); GLOMERULAR FILTRATION RATE 38.9 (>35); POTASSIUM SERUM 3.7 MEQ/L (3.5-5.1); TOTAL PROTEIN 5.9 GM/DL (6.4-8.2)
--- NOTE | 2016-11-15 07:46 | IPNPDOC ---
Subjective Date Seen The patient was seen on 11/15/16. Subjective Chief Complaint/HPI The patient is a 81-year-old male admitted with a reason for visit of Cellulitis. Events since last encounter BUE cellulitis. patient notes not improved, yet not [id number]. Finished course of Permethrin for concern of a scabies infection as a potential cause. Tolerating Ceftaroline. Eating and drinking well. OOB independently. Constitutional: Denies: Chills, Fever, Night Sweats Skin: Reports: Rash Pulmonary: Denies: Dyspnea, Cough Cardiovascular: Denies: Chest Pain, Palpitations, Orthopnea, Paroxysmal Noc. Dyspnea, Lt Headedness Gastrointestinal: Denies: Nausea, Vomiting, Abdominal Pain, Diarrhea, Constipation Genitourinary: Denies: Dysuria, Frequency, Incontinence, Retention Psych: Reports: Mood Normal, Denies: Depression, Memory Issues Objective Physical Examination General Exam: Positive: Alert, Cooperative, No Acute Distress Eye Exam: Positive: Conjunctiva & lids normal Neck Exam: Positive: Supple Chest Exam: Positive: Clear to auscultation, Normal air movement Heart Exam: Positive: Rate Normal Abdomen Exam: Positive: Normal bowel sounds, Soft, Negative: Tenderness Extremity Exam: Negative: Edema Skin Exam: Positive: Nl turgor and temperature, Rash (cellulitic changes in bilat AC (R extending up the arm) with moderate sized blisters; tender; raised erythematous plaque like areas to AC on bilateral arms;scattered erythematous macules on trunk, back, buttocks, arms, between finger webs), Pruritus Assessment /Plan Problems (1) Cellulitis Status: Acute Problem Text: 11/15/2016: Day #2 Ceftaroline. Will add on bacitracin and protective dressing to BUE. On ceftaroline. Will monitor WBCs. I think the cellulitis is secondary, and developed after patient was scratching at the primary rash. Patient failed antibiotic treatment, as he only took one pill, per niece's report. (2) Rash and nonspecific skin eruption Status: Acute Problem Text: 11/15/2016: Finished permethrin. Monitor rash. Patient seen in the office 11/10, and best guess of timeline at that point was perhaps 7-10 days duration. Discussed again with patient that I am not certain of the etiology of the primary rash. I have concern that it may be scabies, and I have ordered permethrin here that he was to have applied 4 days ago, since he did not have assistance to apply or wash off. Discussed with him that I do not wish to use steroids when he is fighting an infection. (3) Fall Status: Acute Problem Text: Per report, without injury. Ordered PT to eval and treat. (4) Chronic kidney disease Status: Chronic Problem Text: Will monitor. Baseline creatinine 1.7. (5) Hypertension Status: Chronic Problem Text: Continue home antihypertensives. Plan/VTE VTE Prophylaxis Ordered?: Yes (heparin) Plan Attending note: I saw and evaluated the patient, and agree with plan of care as discussed and document a by Laina Rey. However, diagnosis of cellulitis is questionable. Patient has multiple erythematous, edematous macules and patches. Blistering is noted on many of these. Although this could be a streptococcal infection, the distribution is not consistent. If patient not resolving rapidly on ceftriaxone , I would question the diagnosis. Ruddy Yancey MD VS, I&O, 24H, [facility] Vital Signs/I&O Vital Signs Date Time Temp Pulse Resp B/P (MAP) Pulse Ox O2 Delivery O2 Flow Rate FiO2 11/15/16 06:00 96.8 85 19 134/75 (94) 98 Room Air I&O- Last 24 Hours up to 6 AM 11/15/16 06:00 Intake Total 1540 ml Output Total 0 ml Balance 1540 ml Laboratory Data 24H LABS Laboratory Tests 2 11/15/16 05:46: White Blood Count 11.2H, Red Blood Count 4.60, Hemoglobin 15.0, Hematocrit 42.6 , Mean Corpuscular Volume 92.7, Mean Corpuscular Hemoglobin 32.6, Mean Corpuscular Hemoglobin Concent 35.2, Red Cell Distribution Width 13.4, Platelet Count 173, Neutrophils (%) (Auto) 65.3, Lymphocytes (%) (Auto) 14.9L, Monocytes (%) (Auto) 6.7H, Eosinophils (%) (Auto) 10.7H, Basophils (%) (Auto) 0.3, Neutrophils # (Auto) 7.3, Lymphocytes # (Auto) 1.9, Monocytes # (Auto) 0.8, Eosinophils # (Auto) 1.2H, Basophils # (Auto) 0.0, Large Unclassified Cells % 2.1, Large Unclassified Cells # 0.2, Anion Gap 8, Glomerular Filtration Rate 38.9, Blood Urea Nitrogen 21H, Creatinine 1.79H, Sodium Level 140, Potassium Level 3.7, Chloride Level 105, Carbon Dioxide Level 27, Calcium Level 8.0L, Aspartate Amino Transf (AST/SGOT) 20, Alanine Aminotransferase (ALT/SGPT) 15, Alkaline Phosphatase 58, Total Bilirubin 0.6, Total Protein 5.9L, Albumin 2.7L, Magnesium Level 2.0, Albumin/Globulin Ratio 0.84L CBC/BMP Laboratory Tests 11/15/16 05:46 Red Blood Count 4.60, Mean Corpuscular Volume 92.7, Mean Corpuscular Hemoglobin 32.6, Mean Corpuscular Hemoglobin Concent 35.2, Red Cell Distribution Width 13.4 , Neutrophils (%) (Auto) 65.3, Lymphocytes (%) (Auto) 14.9 L, Monocytes (%) ( Auto) 6.7 H, Eosinophils (%) (Auto) 10.7 H, Basophils (%) (Auto) 0.3, Neutrophils # (Auto) 7.3, Lymphocytes # (Auto) 1.9, Monocytes # (Auto) 0.8, Eosinophils # (Auto) 1.2 H, Basophils # (Auto) 0.0, Calcium Level 8.0 L, Aspartate Amino Transf (AST/SGOT) 20, Alanine Aminotransferase (ALT/SGPT) 15, Alkaline Phosphatase 58, Total Bilirubin 0.6, Total Protein 5.9 L, Albumin 2.7 L Microbiology Microbiology 11/13/16 Blood Culture - Preliminary, Resulted No growth after 24 hours . All specim... 11/13/16 Blood Culture - Preliminary, Resulted No growth after 24 hours . All specim... 11/14/16 MRSA Screen - Final, Complete Joselyn Rey November 15, 2016 07:46 RUDDY YANCEY MD November 16, 2016 16:25
[2016-11-15] MEDS: MULTIVITAMINS/MINERALS THERAP 1 TAB PO SCH (09:47)
[2016-11-15 14:00] VITALS: BP 152/71
[2016-11-15] MEDS: FUROSEMIDE 20 MG TAB PO SCH (21:10)
[2016-11-15] MEDS: SIMVASTATIN 40 MG TAB PO SCH (21:10)
[2016-11-15] MEDS: TAMSULOSIN 0.4 MG CAP PO SCH (21:11)
[2016-11-15] MEDS: METOPROLOL SUCC *XL* 25MG TAB (TopROL *XL*) PO SCH (21:11)
[2016-11-15 22:00] VITALS: BP 132/75
[2016-11-16] MEDS: IPRATROPIUM 0.5MG/ALBUTEROL 2.5MG INH SOL UD 3ML (DUONEB)(J7620) NEB SCH ×4 (02:00→19:43)
[2016-11-16] MEDS: CEFTAROLINE FOSAMIL 400 MG in D5W MINI-BAG PLUS 50 ML IV SCH ×2 (02:22→15:15)
[2016-11-16] MEDS: HEPARIN SOD (PORCINE) 5000 UNITS/ML VIAL SC SCH ×3 (05:34→21:31)
[2016-11-16] MEDS: BACITRACIN OINT 30GM TOP SCH (05:34)
[2016-11-16 06:00] VITALS: BP 156/78
[2016-11-16 07:01] LABS: BASO % 0.3 % (0.0-1.0); EOS # 1.2 K/mm3 (0.0-0.50); EOS % 9.8 % (0.0-3.0); LARGE UNSTAINED CELL # 0.3 K/mm3 (0.0-0.4); LARGE UNSTAINED CELL % 2.5 % (0.0-4.0); LYMPH % 14.1 % (24.0-44.0); MEAN CORPUSCULAR HEMOGLOBIN 30.8 pg (27.0-33.0); MEAN CORPUSCULAR HGB CONC 33.1 g/dl (32.0-36.5); MEAN CORPUSCULAR VOLUME 93.2 fl (80.0-96.0); MONO # 0.8 K/mm3 (0.0-0.8); MONO % 6.7 % (0.0-5.0); NEUTROPHILS # 8.1 K/mm3 (1.8-7.7); NEUTROPHILS % 66.6 % (36.0-66.0); PLATELET COUNT, AUTOMATED 163 k/mm3 (150-450); RED CELL DISTRIBUTION WIDTH 13.3 % (11.5-14.5); WHITE BLOOD COUNT 12.2 K/mm3 (4.0-10.0)
[2016-11-16 07:17] LABS: ALBUMIN 2.8 GM/DL (3.2-5.2); ALBUMIN/GLOBULIN RATIO 0.9 (1.00-1.93); BILIRUBIN,TOTAL 0.7 MG/DL (0.2-1.0); CALCIUM LEVEL 8.2 MG/DL (8.8-10.2); CREATININE FOR GFR 1.89 MG/DL (0.70-1.30); GLOMERULAR FILTRATION RATE 36.5 (>35); MAGNESIUM LEVEL 2.3 MG/DL (1.8-2.4); POTASSIUM SERUM 3.9 MEQ/L (3.5-5.1); TOTAL PROTEIN 5.9 GM/DL (6.4-8.2)
--- NOTE | 2016-11-16 07:22 | IPNPDOC ---
Subjective Date Seen The patient was seen on 11/16/16. Subjective Chief Complaint/HPI The patient is a 81-year-old male admitted with a reason for visit of Cellulitis. Events since last encounter Offers no c/o today. Constitutional: Denies: Chills, Fever, Night Sweats ENT: Denies: Head Aches, Ear Pain, Dysphagia Skin: Denies: Rash, Lesions, Breakdown Pulmonary: Denies: Dyspnea, Cough Gastrointestinal: Denies: Nausea, Vomiting, Abdominal Pain, Diarrhea, Constipation Genitourinary: Denies: Dysuria, Frequency, Incontinence, Retention Psych: Reports: Mood Normal, Denies: Depression, Memory Issues Objective Physical Examination General Exam: Positive: Alert, Cooperative, No Acute Distress Eye Exam: Positive: Conjunctiva & lids normal Neck Exam: Positive: Supple Chest Exam: Positive: Clear to auscultation, Normal air movement Heart Exam: Positive: Rate Normal Abdomen Exam: Positive: Normal bowel sounds, Soft, Negative: Tenderness Extremity Exam: Negative: Edema Skin Exam: Positive: Nl turgor and temperature, Rash (cellulitic changes in bilat AC (R extending up the arm) with moderate sized blisters; tender; raised erythematous plaque like areas to AC on bilateral arms;scattered erythematous macules on trunk, back, buttocks, arms, between finger webs), Negative: Pruritus Assessment /Plan Problems (1) Cellulitis Status: Acute Problem Text: 11/16/2016: DAy #3 Ceftaroline. Dressings ordered for BUE. Will consult PT for wound care. 11/15/2016: Day #2 Ceftaroline. Will add on bacitracin and protective dressing to BUE. On ceftaroline. Will monitor WBCs. I think the cellulitis is secondary, and developed after patient was scratching at the primary rash. Patient failed antibiotic treatment, as he only took one pill, per niece's report. (2) Rash and nonspecific skin eruption Status: Acute Problem Text: 11/15/2016: Finished permethrin. Monitor rash. Patient seen in the office 11/10, and best guess of timeline at that point was perhaps 7-10 days duration. Discussed again with patient that I am not certain of the etiology of the primary rash. I have concern that it may be scabies, and I have ordered permethrin here that he was to have applied 4 days ago, since he did not have assistance to apply or wash off. Discussed with him that I do not wish to use steroids when he is fighting an infection. (3) Fall Status: Acute Problem Text: Per report, without injury. Ordered PT to eval and treat. (4) Chronic kidney disease Status: Chronic Problem Text: Will monitor. Baseline creatinine 1.7. (5) Hypertension Status: Chronic Problem Text: Continue home antihypertensives. 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 Impetigo would not have inflammatory plaques like this patient has, and should have resolved rapidly with Cefaroline. I discontinued antibiotics and started oral prednisone in addition to triamcinolone ointment. Recommend discontinuing wound nurse recommendations as I don't think that we should exclude the wounds over the top of triamcinolone ointment. Ruddy Yancey MD VS, I&O, 24H, [facility] Vital Signs/I&O Vital Signs Date Time Temp Pulse Resp B/P (MAP) Pulse Ox O2 Delivery O2 Flow Rate FiO2 11/16/16 06:00 97.4 88 20 156/78 (104) 92 Room Air I&O- Last 24 Hours up to 6 AM 11/16/16 05:59 Intake Total 1080 ml Output Total 275 ml Balance 805 ml Laboratory Data 24H LABS Laboratory Tests 2 11/16/16 06:20: White Blood Count 12.2H, Red Blood Count 4.60, Hemoglobin 14.2, Hematocrit 42.9 , Mean Corpuscular Volume 93.2, Mean Corpuscular Hemoglobin 30.8, Mean Corpuscular Hemoglobin Concent 33.1, Red Cell Distribution Width 13.3, Platelet Count 163, Neutrophils (%) (Auto) 66.6H, Lymphocytes (%) (Auto) 14.1L, Monocytes (%) (Auto) 6.7H, Eosinophils (%) (Auto) 9.8H, Basophils (%) (Auto) 0.3 , Neutrophils # (Auto) 8.1H, Lymphocytes # (Auto) 2.0, Monocytes # (Auto) 0.8, Eosinophils # (Auto) 1.2H, Basophils # (Auto) 0.0, Large Unclassified Cells % 2.5, Large Unclassified Cells # 0.3, Anion Gap 5L, Glomerular Filtration Rate 36.5, Blood Urea Nitrogen 25H, Creatinine 1.89H, Sodium Level 139, Potassium Level 3.9, Chloride Level 105, Carbon Dioxide Level 29, Calcium Level 8.2L, Aspartate Amino Transf (AST/SGOT) 21, Alanine Aminotransferase (ALT/SGPT) 16, Alkaline Phosphatase 53, Total Bilirubin 0.7, Total Protein 5.9L, Albumin 2.8L, Magnesium Level 2.3, Albumin/Globulin Ratio 0.90L CBC/BMP Laboratory Tests 11/16/16 06:20 Red Blood Count 4.60, Mean Corpuscular Volume 93.2, Mean Corpuscular Hemoglobin 30.8, Mean Corpuscular Hemoglobin Concent 33.1, Red Cell Distribution Width 13.3 , Neutrophils (%) (Auto) 66.6 H, Lymphocytes (%) (Auto) 14.1 L, Monocytes (%) ( Auto) 6.7 H, Eosinophils (%) (Auto) 9.8 H, Basophils (%) (Auto) 0.3, Neutrophils # (Auto) 8.1 H, Lymphocytes # (Auto) 2.0, Monocytes # (Auto) 0.8, Eosinophils # (Auto) 1.2 H, Basophils # (Auto) 0.0, Calcium Level 8.2 L, Aspartate Amino Transf (AST/SGOT) 21, Alanine Aminotransferase (ALT/SGPT) 16, Alkaline Phosphatase 53, Total Bilirubin 0.7, Total Protein 5.9 L, Albumin 2.8 L Microbiology Microbiology 11/13/16 Blood Culture - Preliminary, Resulted No Growth after 48 hours. All Specime... 11/13/16 Blood Culture - Preliminary, Resulted No Growth after 48 hours. All Specime... 11/14/16 MRSA Screen - Final, Complete Joselyn Rey November 16, 2016 07:22 RUDDY YANCEY MD November 16, 2016 16:28
[2016-11-16] MEDS: MULTIVITAMINS/MINERALS THERAP 1 TAB PO SCH (10:23)
[2016-11-16 14:00] VITALS: BP 160/60
[2016-11-16] MEDS: EUCERIN 120GM CREAM TOP SCH ×2 (15:13→21:34)
[2016-11-16] MEDS: NYSTATIN 100,000 UNITS/GM TOPICAL PWD 15 GM TOP SCH ×2 (15:14→21:33)
[2016-11-16] MEDS: diphenhydrAMINE 25 MG CAP PO PRN (15:14)
[2016-11-16] MEDS ORDERED: predniSONE 20 MG TAB PO SCH (21:00)
[2016-11-16] MEDS: TAMSULOSIN 0.4 MG CAP PO SCH (21:32)
[2016-11-16] MEDS: FUROSEMIDE 20 MG TAB PO SCH (21:32)
[2016-11-16] MEDS: SIMVASTATIN 40 MG TAB PO SCH (21:32)
[2016-11-16] MEDS: METOPROLOL SUCC *XL* 25MG TAB (TopROL *XL*) PO SCH (21:35)
[2016-11-16] MEDS: TRIAMCINOLONE ACET 0.1% OINTMENT 15 GM TOP SCH (21:38)
[2016-11-16 22:00] VITALS: BP 141/70
[2016-11-17] MEDS: IPRATROPIUM 0.5MG/ALBUTEROL 2.5MG INH SOL UD 3ML (DUONEB)(J7620) NEB SCH ×4 (01:15→20:00)
[2016-11-17 05:46] LABS: BASO % 0.2 % (0.0-1.0); EOS # 0.2 K/mm3 (0.0-0.50); EOS % 1.7 % (0.0-3.0); LARGE UNSTAINED CELL # 0.1 K/mm3 (0.0-0.4); LARGE UNSTAINED CELL % 0.7 % (0.0-4.0); LYMPH # 0.8 K/mm3 (1.5-4.5); LYMPH % 7.6 % (24.0-44.0); MEAN CORPUSCULAR HEMOGLOBIN 31.7 pg (27.0-33.0); MEAN CORPUSCULAR HGB CONC 33.3 g/dl (32.0-36.5); MEAN CORPUSCULAR VOLUME 95.1 fl (80.0-96.0); MONO # 0.2 K/mm3 (0.0-0.8); MONO % 1.9 % (0.0-5.0); NEUTROPHILS # 8.6 K/mm3 (1.8-7.7); NEUTROPHILS % 87.9 % (36.0-66.0); PLATELET COUNT, AUTOMATED 172 k/mm3 (150-450); RED CELL DISTRIBUTION WIDTH 13.2 % (11.5-14.5); WHITE BLOOD COUNT 9.8 K/mm3 (4.0-10.0)
[2016-11-17] MEDS: HEPARIN SOD (PORCINE) 5000 UNITS/ML VIAL SC SCH ×3 (05:49→21:10)
[2016-11-17 06:00] VITALS: BP 140/73
[2016-11-17 06:09] LABS: ALBUMIN 2.8 GM/DL (3.2-5.2); ALBUMIN/GLOBULIN RATIO 0.93 (1.00-1.93); BILIRUBIN,TOTAL 0.6 MG/DL (0.2-1.0); CALCIUM LEVEL 8.3 MG/DL (8.8-10.2); CREATININE FOR GFR 2.06 MG/DL (0.70-1.30); GLOMERULAR FILTRATION RATE 33.1 (>35); POTASSIUM SERUM 4.4 MEQ/L (3.5-5.1); TOTAL PROTEIN 5.8 GM/DL (6.4-8.2)
--- NOTE | 2016-11-17 07:18 | IPNPDOC ---
Subjective Date Seen The patient was seen on 11/17/16. Subjective Chief Complaint/HPI The patient is a 81-year-old male admitted with a reason for visit of Cellulitis. Events since last encounter Denies c/o. Patient started on Prednisone and triamcinolone cream for bullous pemphigus. Ceftriaxone DCd. Per nursing staff: A/o x 3. Very forgetful. Constitutional: Denies: Chills, Fever, Night Sweats Skin: Reports: Rash, Other (see HPI) Pulmonary: Denies: Dyspnea, Cough Gastrointestinal: Denies: Nausea, Vomiting, Abdominal Pain, Diarrhea, Constipation Genitourinary: Denies: Dysuria, Frequency, Incontinence, Retention Psych: Reports: Mood Normal, Denies: Depression, Memory Issues Objective Physical Examination General Exam: Positive: Alert, Cooperative, No Acute Distress Eye Exam: Positive: Conjunctiva & lids normal Neck Exam: Positive: Supple Chest Exam: Positive: Clear to auscultation, Normal air movement Heart Exam: Positive: Rate Normal Abdomen Exam: Positive: Normal bowel sounds, Soft, Negative: Tenderness Extremity Exam: Negative: Edema Skin Exam: Positive: Nl turgor and temperature, Rash (BUE: erythema, resolving blisters. improvement in warmth and extent of rash. ), Negative: Pruritus Assessment /Plan Problems (1) Bullous pemphigus Status: Acute Response to Treatment: Improving Problem Specific Plan: Monitor Clinically Problem Text: Continue prednisone and Triamcinolone. (2) Cellulitis Status: Resolved Problem Text: 11/16/2016: DAy #3 Ceftaroline. Dressings ordered for BUE. Will consult PT for wound care. 11/15/2016: Day #2 Ceftaroline. Will add on bacitracin and protective dressing to BUE. On ceftaroline. Will monitor WBCs. I think the cellulitis is secondary, and developed after patient was scratching at the primary rash. Patient failed antibiotic treatment, as he only took one pill, per niece's report. (3) Rash and nonspecific skin eruption Status: Acute Problem Text: 11/15/2016: Finished permethrin. Monitor rash. Patient seen in the office 11/10, and best guess of timeline at that point was perhaps 7-10 days duration. Discussed again with patient that I am not certain of the etiology of the primary rash. I have concern that it may be scabies, and I have ordered permethrin here that he was to have applied 4 days ago, since he did not have assistance to apply or wash off. Discussed with him that I do not wish to use steroids when he is fighting an infection. (4) Fall Status: Acute Problem Text: Per report, without injury. Ordered PT to eval and treat. (5) Chronic kidney disease Status: Chronic Problem Text: Will monitor. Baseline creatinine 1.7. (6) Hypertension Status: Chronic Problem Text: Continue home antihypertensives. Plan/VTE VTE Prophylaxis Ordered?: Yes (heparin) Plan Attending note: I saw and evaluated the patient, and agree with the plan of care as discussed and documented by Laina Rey. Skin is less edematous today. Slightly less tender, and blisters are resolving. We'll likely need several more days of topical and systemic steroids. He will need follow-up with dermatology. Ruddy Yancey MD VS, I&O, 24H, [facility] Vital Signs/I&O Vital Signs Date Time Temp Pulse Resp B/P (MAP) Pulse Ox O2 Delivery O2 Flow Rate FiO2 11/17/16 06:00 97.2 99 20 140/73 (95) 94 Room Air I&O- Last 24 Hours up to 6 AM 11/17/16 06:00 Intake Total 415 ml Output Total 375 ml Balance 40 ml Laboratory Data 24H LABS Laboratory Tests 2 11/17/16 05:25: White Blood Count 9.8, Red Blood Count 4.75, Hemoglobin 15.0, Hematocrit 45.2, Mean Corpuscular Volume 95.1, Mean Corpuscular Hemoglobin 31.7, Mean Corpuscular Hemoglobin Concent 33.3, Red Cell Distribution Width 13.2, Platelet Count 172, Neutrophils (%) (Auto) 87.9H, Lymphocytes (%) (Auto) 7.6L, Monocytes (%) (Auto) 1.9, Eosinophils (%) (Auto) 1.7, Basophils (%) (Auto) 0.2, Neutrophils # (Auto) 8.6H, Lymphocytes # (Auto) 0.8L, Monocytes # (Auto) 0.2, Eosinophils # (Auto) 0.2, Basophils # (Auto) 0.0, Large Unclassified Cells % 0.7 , Large Unclassified Cells # 0.1, Anion Gap 7L, Glomerular Filtration Rate 33.1L , Blood Urea Nitrogen 32H, Creatinine 2.06H, Sodium Level 139, Potassium Level 4.4, Chloride Level 105, Carbon Dioxide Level 27, Calcium Level 8.3L, Aspartate Amino Transf (AST/SGOT) 24, Alanine Aminotransferase (ALT/SGPT) 20, Alkaline Phosphatase 52, Total Bilirubin 0.6, Total Protein 5.8L, Albumin 2.8L, Magnesium Level 2.0, Albumin/Globulin Ratio 0.93L CBC/BMP Laboratory Tests 11/17/16 05:25 Red Blood Count 4.75, Mean Corpuscular Volume 95.1, Mean Corpuscular Hemoglobin 31.7, Mean Corpuscular Hemoglobin Concent 33.3, Red Cell Distribution Width 13.2 , Neutrophils (%) (Auto) 87.9 H, Lymphocytes (%) (Auto) 7.6 L, Monocytes (%) ( Auto) 1.9, Eosinophils (%) (Auto) 1.7, Basophils (%) (Auto) 0.2, Neutrophils # ( Auto) 8.6 H, Lymphocytes # (Auto) 0.8 L, Monocytes # (Auto) 0.2, Eosinophils # ( Auto) 0.2, Basophils # (Auto) 0.0, Calcium Level 8.3 L, Aspartate Amino Transf ( AST/SGOT) 24, Alanine Aminotransferase (ALT/SGPT) 20, Alkaline Phosphatase 52, Total Bilirubin 0.6, Total Protein 5.8 L, Albumin 2.8 L Microbiology Microbiology 11/13/16 Blood Culture - Preliminary, Resulted No Growth after 72 hours. All specime... 11/13/16 Blood Culture - Preliminary, Resulted No Growth after 72 hours. All specime... 11/14/16 MRSA Screen - Final, Complete Joselyn Rey November 17, 2016 07:18 RUDDY YANCEY MD November 19, 2016 14:52
[2016-11-17] MEDS: predniSONE 20 MG TAB PO SCH ×2 (08:59→21:11)
[2016-11-17] MEDS: MULTIVITAMINS/MINERALS THERAP 1 TAB PO SCH (08:59)
[2016-11-17] MEDS: NYSTATIN 100,000 UNITS/GM TOPICAL PWD 15 GM TOP SCH ×2 (09:00→21:12)
[2016-11-17] MEDS: EUCERIN 120GM CREAM TOP SCH ×2 (09:00→21:12)
[2016-11-17] MEDS: TRIAMCINOLONE ACET 0.1% OINTMENT 15 GM TOP SCH ×2 (09:00→21:11)
[2016-11-17 14:00] VITALS: BP 127/60
[2016-11-17] MEDS: diphenhydrAMINE 25 MG CAP PO PRN (19:51)
[2016-11-17] MEDS: FUROSEMIDE 20 MG TAB PO SCH (21:11)
[2016-11-17] MEDS: TAMSULOSIN 0.4 MG CAP PO SCH (21:11)
[2016-11-17] MEDS: SIMVASTATIN 40 MG TAB PO SCH (21:11)
[2016-11-17] MEDS: METOPROLOL SUCC *XL* 25MG TAB (TopROL *XL*) PO SCH (21:14)
[2016-11-17 22:00] VITALS: BP 150/72
[2016-11-18] MEDS ORDERED: ONDANSETRON 4 MG TAB (S0181) PO PRN (01:15)
[2016-11-18] MEDS: IPRATROPIUM 0.5MG/ALBUTEROL 2.5MG INH SOL UD 3ML (DUONEB)(J7620) NEB SCH ×4 (01:44→19:36)
[2016-11-18] MEDS: HEPARIN SOD (PORCINE) 5000 UNITS/ML VIAL SC SCH ×3 (05:35→21:22)
[2016-11-18 06:00] VITALS: BP 127/60
[2016-11-18 06:04] LABS: BASO % 0.3 % (0.0-1.0); EOS % 0.1 % (0.0-3.0); LARGE UNSTAINED CELL # 0.1 K/mm3 (0.0-0.4); LARGE UNSTAINED CELL % 0.8 % (0.0-4.0); LYMPH # 1.1 K/mm3 (1.5-4.5); LYMPH % 6.6 % (24.0-44.0); MEAN CORPUSCULAR HGB CONC 33.3 g/dl (32.0-36.5); MEAN CORPUSCULAR VOLUME 93.2 fl (80.0-96.0); MONO # 0.5 K/mm3 (0.0-0.8); MONO % 3.3 % (0.0-5.0); NEUTROPHILS # 13.4 K/mm3 (1.8-7.7); NEUTROPHILS % 88.9 % (36.0-66.0); PLATELET COUNT, AUTOMATED 175 k/mm3 (150-450); RED CELL DISTRIBUTION WIDTH 13.3 % (11.5-14.5); WHITE BLOOD COUNT 15.1 K/mm3 (4.0-10.0)
[2016-11-18 06:24] LABS: ALBUMIN 2.9 GM/DL (3.2-5.2); ALBUMIN/GLOBULIN RATIO 0.97 (1.00-1.93); BILIRUBIN,TOTAL 0.4 MG/DL (0.2-1.0); CALCIUM LEVEL 7.9 MG/DL (8.8-10.2); CREATININE FOR GFR 2.12 MG/DL (0.70-1.30); MAGNESIUM LEVEL 2.2 MG/DL (1.8-2.4); POTASSIUM SERUM 4.1 MEQ/L (3.5-5.1); TOTAL PROTEIN 5.9 GM/DL (6.4-8.2)
--- NOTE | 2016-11-18 08:00 | IPNPDOC ---
Subjective Date Seen The patient was seen on 11/18/16. Subjective Chief Complaint/HPI The patient is a 81-year-old male admitted with a reason for visit of Cellulitis. Events since last encounter Continues to itch arms. having trouble remembering to call for assistance OOB. PT has concerns about forgetfulness with safety cues. Constitutional: Denies: Chills, Fever, Night Sweats Gastrointestinal: Denies: Nausea, Vomiting, Abdominal Pain, Diarrhea, Constipation Genitourinary: Denies: Dysuria, Frequency, Incontinence, Retention Psych: Reports: Mood Normal, Denies: Depression, Memory Issues Objective Physical Examination General Exam: Positive: Alert, Cooperative, No Acute Distress Eye Exam: Positive: Conjunctiva & lids normal Neck Exam: Positive: Supple Chest Exam: Positive: Clear to auscultation, Normal air movement Heart Exam: Positive: Rate Normal Abdomen Exam: Positive: Normal bowel sounds, Soft, Negative: Tenderness Extremity Exam: Negative: Edema Skin Exam: Positive: Nl turgor and temperature, Rash (BUE: erythema, resolving blisters. improvement in warmth and extent of rash. ), Negative: Pruritus Assessment /Plan Problems (1) Bullous pemphigus Status: Acute Response to Treatment: Improving Problem Specific Plan: Monitor Clinically Problem Text: 11/18/2016: Foam dressing and co-band to be applied today. Will assist with itching and swelling. DC triamcinolone. Continue prednisone and Triamcinolone. (2) Rash and nonspecific skin eruption Status: Acute Problem Text: 11/18/2016: dermatitis. Benadryl prn itching. 11/15/2016: Finished permethrin. Monitor rash. Patient seen in the office 11/10, and best guess of timeline at that point was perhaps 7-10 days duration. Discussed again with patient that I am not certain of the etiology of the primary rash. I have concern that it may be scabies, and I have ordered permethrin here that he was to have applied 4 days ago, since he did not have assistance to apply or wash off. Discussed with him that I do not wish to use steroids when he is fighting an infection. (3) Fall Status: Acute Problem Text: 11/18/2016: concerns for safety. PFS working on eval of home situation and services. Per report, without injury. Ordered PT to eval and treat. (4) Chronic kidney disease Status: Chronic Problem Text: Will monitor. Baseline creatinine 1.7. (5) Hypertension Status: Chronic Problem Text: Continue home antihypertensives. (6) Cellulitis Status: Resolved Problem Text: 11/16/2016: DAy #3 Ceftaroline. Dressings ordered for BUE. Will consult PT for wound care. 11/15/2016: Day #2 Ceftaroline. Will add on bacitracin and protective dressing to BUE. On ceftaroline. Will monitor WBCs. I think the cellulitis is secondary, and developed after patient was scratching at the primary rash. Patient failed antibiotic treatment, as he only took one pill, per niece's report. Plan/VTE VTE Prophylaxis Ordered?: Yes (heparin) VS, I&O, 24H, [facility] Vital Signs/I&O Vital Signs Date Time Temp Pulse Resp B/P (MAP) Pulse Ox O2 Delivery O2 Flow Rate FiO2 11/18/16 06:00 97.3 78 20 127/60 (82) 94 Room Air I&O- Last 24 Hours up to 6 AM 11/18/16 06:00 Intake Total 2370 ml Output Total 2200 ml Balance 170 ml Laboratory Data 24H LABS Laboratory Tests 2 11/18/16 05:22: White Blood Count 15.1H, Red Blood Count 4.25L, Hemoglobin 13.2L, Hematocrit 39.6L, Mean Corpuscular Volume 93.2, Mean Corpuscular Hemoglobin 31.0, Mean Corpuscular Hemoglobin Concent 33.3, Red Cell Distribution Width 13.3, Platelet Count 175, Neutrophils (%) (Auto) 88.9H, Lymphocytes (%) (Auto) 6.6L, Monocytes (%) (Auto) 3.3, Eosinophils (%) (Auto) 0.1, Basophils (%) (Auto) 0.3, Neutrophils # (Auto) 13.4H, Lymphocytes # (Auto) 1.1L, Monocytes # (Auto) 0.5, Eosinophils # (Auto) 0.0, Basophils # (Auto) 0.0, Large Unclassified Cells % 0.8 , Large Unclassified Cells # 0.1, Anion Gap 11, Glomerular Filtration Rate 32.0L , Blood Urea Nitrogen 40H, Creatinine 2.12H, Sodium Level 137, Potassium Level 4.1, Chloride Level 101, Carbon Dioxide Level 25, Calcium Level 7.9L, Aspartate Amino Transf (AST/SGOT) 26, Alanine Aminotransferase (ALT/SGPT) 23, Alkaline Phosphatase 53, Total Bilirubin 0.4, Total Protein 5.9L, Albumin 2.9L, Magnesium Level 2.2, Albumin/Globulin Ratio 0.97L CBC/BMP Laboratory Tests 11/18/16 05:22 Red Blood Count 4.25 L, Mean Corpuscular Volume 93.2, Mean Corpuscular Hemoglobin 31.0, Mean Corpuscular Hemoglobin Concent 33.3, Red Cell Distribution Width 13.3, Neutrophils (%) (Auto) 88.9 H, Lymphocytes (%) (Auto) 6.6 L, Monocytes (%) (Auto) 3.3, Eosinophils (%) (Auto) 0.1, Basophils (%) (Auto ) 0.3, Neutrophils # (Auto) 13.4 H, Lymphocytes # (Auto) 1.1 L, Monocytes # ( Auto) 0.5, Eosinophils # (Auto) 0.0, Basophils # (Auto) 0.0, Calcium Level 7.9 L , Aspartate Amino Transf (AST/SGOT) 26, Alanine Aminotransferase (ALT/SGPT) 23, Alkaline Phosphatase 53, Total Bilirubin 0.4, Total Protein 5.9 L, Albumin 2.9 L Microbiology Microbiology 11/13/16 Blood Culture - Preliminary, Resulted No Growth after 72 hours. All specime... 11/13/16 Blood Culture - Preliminary, Resulted No Growth after 72 hours. All specime... 11/14/16 MRSA Screen - Final, Complete Joselyn Rey November 18, 2016 08:00
[2016-11-18] MEDS: predniSONE 20 MG TAB PO SCH ×2 (08:29→21:22)
[2016-11-18] MEDS: EUCERIN 120GM CREAM TOP SCH ×2 (08:29→21:21)
[2016-11-18] MEDS: MULTIVITAMINS/MINERALS THERAP 1 TAB PO SCH (08:29)
[2016-11-18] MEDS: NYSTATIN 100,000 UNITS/GM TOPICAL PWD 15 GM TOP SCH ×2 (08:30→21:23)
[2016-11-18] MEDS: TRIAMCINOLONE ACET 0.1% OINTMENT 15 GM TOP SCH ×2 (08:30→21:23)
[2016-11-18 14:00] VITALS: BP 122/74
[2016-11-18] MEDS: SIMVASTATIN 40 MG TAB PO SCH (21:22)
[2016-11-18] MEDS: METOPROLOL SUCC *XL* 25MG TAB (TopROL *XL*) PO SCH (21:22)
[2016-11-18] MEDS: TAMSULOSIN 0.4 MG CAP PO SCH (21:22)
[2016-11-18] MEDS: diphenhydrAMINE 25 MG CAP PO PRN (21:24)
[2016-11-18 22:00] VITALS: BP 156/64
[2016-11-19] MEDS: IPRATROPIUM 0.5MG/ALBUTEROL 2.5MG INH SOL UD 3ML (DUONEB)(J7620) NEB SCH ×4 (01:19→19:38)
[2016-11-19] MEDS: HEPARIN SOD (PORCINE) 5000 UNITS/ML VIAL SC SCH ×3 (05:02→21:47)
[2016-11-19 06:00] VITALS: BP 162/74
[2016-11-19 06:12] LABS: BASO % 0.1 % (0.0-1.0); EOS % 0.1 % (0.0-3.0); LARGE UNSTAINED CELL # 0.2 K/mm3 (0.0-0.4); LYMPH % 6.8 % (24.0-44.0); MEAN CORPUSCULAR HEMOGLOBIN 31.5 pg (27.0-33.0); MEAN CORPUSCULAR HGB CONC 33.2 g/dl (32.0-36.5); MEAN CORPUSCULAR VOLUME 94.9 fl (80.0-96.0); MONO # 0.5 K/mm3 (0.0-0.8); MONO % 3.5 % (0.0-5.0); NEUTROPHILS # 12.3 K/mm3 (1.8-7.7); NEUTROPHILS % 88.4 % (36.0-66.0); PLATELET COUNT, AUTOMATED 161 k/mm3 (150-450); RED CELL DISTRIBUTION WIDTH 13.3 % (11.5-14.5); WHITE BLOOD COUNT 13.9 K/mm3 (4.0-10.0)
[2016-11-19 06:35] LABS: ALBUMIN 2.9 GM/DL (3.2-5.2); ALBUMIN/GLOBULIN RATIO 0.97 (1.00-1.93); BILIRUBIN,TOTAL 0.4 MG/DL (0.2-1.0); CALCIUM LEVEL 8.3 MG/DL (8.8-10.2); CREATININE FOR GFR 1.9 MG/DL (0.70-1.30); GLOMERULAR FILTRATION RATE 36.3 (>35); MAGNESIUM LEVEL 2.3 MG/DL (1.8-2.4); POTASSIUM SERUM 4.2 MEQ/L (3.5-5.1); TOTAL PROTEIN 5.9 GM/DL (6.4-8.2)
--- NOTE | 2016-11-19 07:51 | IPNPDOC ---
Subjective Date Seen The patient was seen on 11/19/16. Subjective Chief Complaint/HPI The patient is a 81-year-old male admitted with a reason for visit of Cellulitis. Events since last encounter Patient is doing significantly better today, however nursing states that he is still occasionally itching at his arms. Patient has Benadryl ordered. Patient is eager to go home. Constitutional: Denies: Chills, Fever, Night Sweats Pulmonary: Denies: Dyspnea, Cough Gastrointestinal: Denies: Nausea, Vomiting, Abdominal Pain, Diarrhea, Constipation Genitourinary: Denies: Dysuria, Frequency, Incontinence, Retention Psych: Reports: Mood Normal, Denies: Depression, Memory Issues Objective Physical Examination General Exam: Positive: Alert, Cooperative, No Acute Distress Eye Exam: Positive: Conjunctiva & lids normal Neck Exam: Positive: Supple Chest Exam: Positive: Clear to auscultation, Normal air movement Heart Exam: Positive: Rate Normal Abdomen Exam: Positive: Normal bowel sounds, Soft, Negative: Tenderness Extremity Exam: Negative: Edema Skin Exam: Positive: Nl turgor and temperature, Rash (BUE: erythema, resolving blisters. improvement in warmth and extent of rash. ), Negative: Pruritus Assessment /Plan Problems (1) Bullous pemphigus Status: Acute Response to Treatment: Improving Problem Specific Plan: Monitor Clinically Problem Text: Occlusion dressing to be applied to midarms and legs. - Scheduled Atarax for itching -Continue prednisone and Triamcinolone. (2) Rash and nonspecific skin eruption Status: Acute Problem Text: Schedule Atarax for itching. Bullous pemphigoid resolving on oral and topical steroids. (3) Fall Status: Acute Problem Text: 11/18/2016: concerns for safety. PFS working on eval of home situation and services. Per report, without injury. Ordered PT to eval and treat. (4) Chronic kidney disease Status: Chronic Problem Text: Will monitor. Baseline creatinine 1.7. (5) Hypertension Status: Chronic Problem Text: Continue home antihypertensives. (6) Cellulitis Status: Resolved Problem Text: 11/16/2016: DAy #3 Ceftaroline. Dressings ordered for BUE. Will consult PT for wound care. 11/15/2016: Day #2 Ceftaroline. Will add on bacitracin and protective dressing to BUE. On ceftaroline. Will monitor WBCs. I think the cellulitis is secondary, and developed after patient was scratching at the primary rash. Patient failed antibiotic treatment, as he only took one pill, per niece's report. Plan/VTE VTE Prophylaxis Ordered?: Yes (heparin) Plan Patient continues to require nursing to apply triamcinolone ointment on multiple lesions all over the patient's body. He will need home nurse care to help with continued application after discharge. Home care will be set up on Tuesday or Tuesday. VS, I&O, 24H, [facility] Vital Signs/I&O Vital Signs Date Time Temp Pulse Resp B/P (MAP) Pulse Ox O2 Delivery O2 Flow Rate FiO2 11/19/16 06:00 97.0 66 20 162/74 (103) 97 Room Air I&O- Last 24 Hours up to 6 AM 11/19/16 06:00 Intake Total 1260 ml Output Total 1825 ml Balance -565 ml Laboratory Data 24H LABS Laboratory Tests 2 11/19/16 05:20: White Blood Count 13.9H, Red Blood Count 4.09L, Hemoglobin 12.9L, Hematocrit 38.8L, Mean Corpuscular Volume 94.9, Mean Corpuscular Hemoglobin 31.5, Mean Corpuscular Hemoglobin Concent 33.2, Red Cell Distribution Width 13.3, Platelet Count 161, Neutrophils (%) (Auto) 88.4H, Lymphocytes (%) (Auto) 6.8L, Monocytes (%) (Auto) 3.5, Eosinophils (%) (Auto) 0.1, Basophils (%) (Auto) 0.1, Neutrophils # (Auto) 12.3H, Lymphocytes # (Auto) 1.0L, Monocytes # (Auto) 0.5, Eosinophils # (Auto) 0.0, Basophils # (Auto) 0.0, Large Unclassified Cells % 1.0 , Large Unclassified Cells # 0.2, Anion Gap 8, Glomerular Filtration Rate 36.3, Blood Urea Nitrogen 41H, Creatinine 1.90H, Sodium Level 141, Potassium Level 4.2 , Chloride Level 105, Carbon Dioxide Level 28, Calcium Level 8.3L, Aspartate Amino Transf (AST/SGOT) 28, Alanine Aminotransferase (ALT/SGPT) 27, Alkaline Phosphatase 46, Total Bilirubin 0.4, Total Protein 5.9L, Albumin 2.9L, Magnesium Level 2.3, Albumin/Globulin Ratio 0.97L CBC/BMP Laboratory Tests 11/19/16 05:20 Red Blood Count 4.09 L, Mean Corpuscular Volume 94.9, Mean Corpuscular Hemoglobin 31.5, Mean Corpuscular Hemoglobin Concent 33.2, Red Cell Distribution Width 13.3, Neutrophils (%) (Auto) 88.4 H, Lymphocytes (%) (Auto) 6.8 L, Monocytes (%) (Auto) 3.5, Eosinophils (%) (Auto) 0.1, Basophils (%) (Auto ) 0.1, Neutrophils # (Auto) 12.3 H, Lymphocytes # (Auto) 1.0 L, Monocytes # ( Auto) 0.5, Eosinophils # (Auto) 0.0, Basophils # (Auto) 0.0, Calcium Level 8.3 L , Aspartate Amino Transf (AST/SGOT) 28, Alanine Aminotransferase (ALT/SGPT) 27, Alkaline Phosphatase 46, Total Bilirubin 0.4, Total Protein 5.9 L, Albumin 2.9 L Microbiology Microbiology 11/13/16 Blood Culture - Final, Complete NO GROWTH AFTER 5 DAYS 11/13/16 Blood Culture - Final, Complete NO GROWTH AFTER 5 DAYS 11/14/16 MRSA Screen - Final, Complete Joselyn Rey November 19, 2016 07:51 WILLIAM YANCEY MD November 19, 2016 14:56
[2016-11-19] MEDS: MULTIVITAMINS/MINERALS THERAP 1 TAB PO SCH (10:39)
[2016-11-19] MEDS: EUCERIN 120GM CREAM TOP SCH ×2 (10:40→21:46)
[2016-11-19] MEDS: predniSONE 20 MG TAB PO SCH (10:40)
[2016-11-19] MEDS: NYSTATIN 100,000 UNITS/GM TOPICAL PWD 15 GM TOP SCH ×2 (10:40→21:47)
[2016-11-19] MEDS: FUROSEMIDE 20 MG TAB PO SCH (10:40)
[2016-11-19] MEDS: TRIAMCINOLONE ACET 0.1% OINTMENT 15 GM TOP SCH ×2 (10:41→21:46)
[2016-11-19] MEDS: hydrOXYzine 50 MG TAB PO SCH ×2 (12:10→17:39)
[2016-11-19 14:00] VITALS: BP 159/67
[2016-11-19] MEDS: SIMVASTATIN 40 MG TAB PO SCH (21:45)
[2016-11-19] MEDS: TAMSULOSIN 0.4 MG CAP PO SCH (21:45)
[2016-11-19] MEDS: METOPROLOL SUCC *XL* 25MG TAB (TopROL *XL*) PO SCH (21:46)
[2016-11-19 22:00] VITALS: BP 156/70
[2016-11-20] MEDS: hydrOXYzine 50 MG TAB PO SCH ×5 (00:44→23:39)
[2016-11-20] MEDS: IPRATROPIUM 0.5MG/ALBUTEROL 2.5MG INH SOL UD 3ML (DUONEB)(J7620) NEB SCH ×4 (01:38→19:55)
[2016-11-20] MEDS: HEPARIN SOD (PORCINE) 5000 UNITS/ML VIAL SC SCH ×3 (05:17→21:01)
[2016-11-20 06:00] VITALS: BP 159/74
[2016-11-20 06:14] LABS: BASO % 0.1 % (0.0-1.0); EOS # 0.1 K/mm3 (0.0-0.50); EOS % 0.4 % (0.0-3.0); LARGE UNSTAINED CELL # 0.3 K/mm3 (0.0-0.4); LARGE UNSTAINED CELL % 1.6 % (0.0-4.0); LYMPH # 1.3 K/mm3 (1.5-4.5); LYMPH % 8.5 % (24.0-44.0); MEAN CORPUSCULAR HEMOGLOBIN 31.6 pg (27.0-33.0); MEAN CORPUSCULAR HGB CONC 33.3 g/dl (32.0-36.5); MONO % 6.6 % (0.0-5.0); NEUTROPHILS # 12.7 K/mm3 (1.8-7.7); NEUTROPHILS % 82.7 % (36.0-66.0); PLATELET COUNT, AUTOMATED 189 k/mm3 (150-450); RED CELL DISTRIBUTION WIDTH 13.2 % (11.5-14.5); WHITE BLOOD COUNT 15.4 K/mm3 (4.0-10.0)
[2016-11-20 06:59] LABS: ALBUMIN 3.1 GM/DL (3.2-5.2); ALBUMIN/GLOBULIN RATIO 1.11 (1.00-1.93); BILIRUBIN,TOTAL 0.3 MG/DL (0.2-1.0); CALCIUM LEVEL 8.5 MG/DL (8.8-10.2); CREATININE FOR GFR 1.73 MG/DL (0.70-1.30); GLOMERULAR FILTRATION RATE 40.5 (>35); MAGNESIUM LEVEL 2.7 MG/DL (1.8-2.4); POTASSIUM SERUM 3.7 MEQ/L (3.5-5.1); TOTAL PROTEIN 5.9 GM/DL (6.4-8.2)
[2016-11-20] MEDS: NYSTATIN 100,000 UNITS/GM TOPICAL PWD 15 GM TOP SCH ×2 (10:20→21:01)
[2016-11-20] MEDS: predniSONE 20 MG TAB PO SCH (10:20)
[2016-11-20] MEDS: MULTIVITAMINS/MINERALS THERAP 1 TAB PO SCH (10:20)
[2016-11-20] MEDS: FUROSEMIDE 20 MG TAB PO SCH (10:20)
[2016-11-20] MEDS: TRIAMCINOLONE ACET 0.1% OINTMENT 15 GM TOP SCH (10:21)
[2016-11-20] MEDS: EUCERIN 120GM CREAM TOP SCH ×2 (10:21→21:02)
[2016-11-20 14:00] VITALS: BP 142/62
--- NOTE | 2016-11-20 14:05 | IPNPDOC ---
Subjective Date Seen The patient was seen on 11/20/16. Subjective Chief Complaint/HPI The patient is a 81-year-old male admitted with a reason for visit of Cellulitis. Objective Physical Examination General Exam: Positive: Alert, Cooperative, No Acute Distress Eye Exam: Positive: Conjunctiva & lids normal Neck Exam: Positive: Supple Chest Exam: Positive: Clear to auscultation, Normal air movement Heart Exam: Positive: Rate Normal Abdomen Exam: Positive: Normal bowel sounds, Soft, Negative: Tenderness Extremity Exam: Negative: Edema Skin Exam: Positive: Nl turgor and temperature, Rash (BUE: erythema, resolving blisters. improvement in warmth and extent of rash. ), Negative: Pruritus Assessment /Plan Problems (1) Bullous pemphigus Status: Acute Response to Treatment: Improving Problem Specific Plan: Monitor Clinically Problem Text: decrease pred and change to class I topical BID 11/17/16 Dr. Og stopped ceftriaxone and started prednisone 60 given classic BP presentation Occlusion dressing to be applied to midarms and legs. - Scheduled Atarax for itching -contiues topical triamcinolone. (2) Fall Status: Acute Problem Text: 11/18/2016: concerns for safety. PFS working on eval of home situation and services. Per report, without injury. Ordered PT to eval and treat. (3) Chronic kidney disease Status: Chronic Problem Text: at baseline creatinine 1.7. (4) Hypertension Status: Chronic Problem Text: Continue home antihypertensives. Plan/VTE VTE Prophylaxis Ordered?: Yes (heparin) Disposition plan home 11/22 per PFS VS, I&O, 24H, Fishbone Vital Signs/I&O Vital Signs Date Time Temp Pulse Resp B/P (MAP) Pulse Ox O2 Delivery O2 Flow Rate FiO2 11/20/16 09:32 Room Air 11/20/16 06:00 97.7 72 18 159/74 (102) 95 I&O- Last 24 Hours up to 6 AM 11/20/16 06:00 Intake Total 960 ml Output Total 1975 ml Balance -1015 ml Laboratory Data 24H LABS Laboratory Tests 2 11/20/16 05:35: White Blood Count 15.4H, Red Blood Count 4.42, Hemoglobin 14.0, Hematocrit 42.0 , Mean Corpuscular Volume 95.0, Mean Corpuscular Hemoglobin 31.6, Mean Corpuscular Hemoglobin Concent 33.3, Red Cell Distribution Width 13.2, Platelet Count 189, Neutrophils (%) (Auto) 82.7H, Lymphocytes (%) (Auto) 8.5L, Monocytes (%) (Auto) 6.6H, Eosinophils (%) (Auto) 0.4, Basophils (%) (Auto) 0.1, Neutrophils # (Auto) 12.7H, Lymphocytes # (Auto) 1.3L, Monocytes # (Auto) 1.0H, Eosinophils # (Auto) 0.1, Basophils # (Auto) 0.0, Large Unclassified Cells % 1.6 , Large Unclassified Cells # 0.3, Anion Gap 7L, Glomerular Filtration Rate 40.5 , Blood Urea Nitrogen 42H, Creatinine 1.73H, Sodium Level 142, Potassium Level 3.7, Chloride Level 108H, Carbon Dioxide Level 27, Calcium Level 8.5L, Aspartate Amino Transf (AST/SGOT) 21, Alanine Aminotransferase (ALT/SGPT) 28, Alkaline Phosphatase 50, Total Bilirubin 0.3, Total Protein 5.9L, Albumin 3.1L, Magnesium Level 2.7H, Albumin/Globulin Ratio 1.11 CBC/BMP Laboratory Tests 11/20/16 05:35 Red Blood Count 4.42, Mean Corpuscular Volume 95.0, Mean Corpuscular Hemoglobin 31.6, Mean Corpuscular Hemoglobin Concent 33.3, Red Cell Distribution Width 13.2 , Neutrophils (%) (Auto) 82.7 H, Lymphocytes (%) (Auto) 8.5 L, Monocytes (%) ( Auto) 6.6 H, Eosinophils (%) (Auto) 0.4, Basophils (%) (Auto) 0.1, Neutrophils # (Auto) 12.7 H, Lymphocytes # (Auto) 1.3 L, Monocytes # (Auto) 1.0 H, Eosinophils # (Auto) 0.1, Basophils # (Auto) 0.0, Calcium Level 8.5 L, Aspartate Amino Transf (AST/SGOT) 21, Alanine Aminotransferase (ALT/SGPT) 28, Alkaline Phosphatase 50, Total Bilirubin 0.3, Total Protein 5.9 L, Albumin 3.1 L Microbiology Microbiology 11/13/16 Blood Culture - Final, Complete NO GROWTH AFTER 5 DAYS 11/13/16 Blood Culture - Final, Complete NO GROWTH AFTER 5 DAYS 11/14/16 MRSA Screen - Final, Complete Nba,Deon E. M.D. RONALDO November 20, 2016 14:05
[2016-11-20] MEDS: TAMSULOSIN 0.4 MG CAP PO SCH (21:00)
[2016-11-20] MEDS: SIMVASTATIN 40 MG TAB PO SCH (21:00)
[2016-11-20] MEDS: METOPROLOL SUCC *XL* 25MG TAB (TopROL *XL*) PO SCH (21:00)
[2016-11-20] MEDS: CLOBETASOL PROP 0.05% OINT 30 GM TOP SCH (21:01)
[2016-11-20 22:00] VITALS: BP 142/72
[2016-11-21] MEDS: IPRATROPIUM 0.5MG/ALBUTEROL 2.5MG INH SOL UD 3ML (DUONEB)(J7620) NEB SCH ×4 (01:02→20:34)
[2016-11-21] MEDS: hydrOXYzine 50 MG TAB PO SCH ×4 (05:04→23:23)
[2016-11-21] MEDS: HEPARIN SOD (PORCINE) 5000 UNITS/ML VIAL SC SCH ×3 (05:04→21:26)
[2016-11-21 06:00] VITALS: BP 151/70
[2016-11-21] MEDS: predniSONE 10 MG TAB PO SCH (09:48)
[2016-11-21] MEDS: MULTIVITAMINS/MINERALS THERAP 1 TAB PO SCH (09:48)
[2016-11-21] MEDS: EUCERIN 120GM CREAM TOP SCH ×2 (09:49→21:27)
[2016-11-21] MEDS: FUROSEMIDE 20 MG TAB PO SCH (09:49)
[2016-11-21] MEDS: NYSTATIN 100,000 UNITS/GM TOPICAL PWD 15 GM TOP SCH ×2 (09:50→21:27)
[2016-11-21] MEDS: CLOBETASOL PROP 0.05% OINT 30 GM TOP SCH ×2 (11:08→19:06)
[2016-11-21 14:00] VITALS: BP 144/68
--- NOTE | 2016-11-21 14:00 | IPNPDOC ---
Subjective Date Seen The patient was seen on 11/21/16. Subjective Chief Complaint/HPI The patient is a 81-year-old male admitted with a reason for visit of Cellulitis. Constitutional: Denies: Chills Pulmonary: Denies: Dyspnea, Cough Cardiovascular: Denies: Chest Pain Gastrointestinal: Denies: Nausea Neurological: Denies: Weakness Objective Physical Examination General Exam: Positive: Alert, Cooperative, No Acute Distress Eye Exam: Positive: Conjunctiva & lids normal Neck Exam: Positive: Supple Chest Exam: Positive: Clear to auscultation, Normal air movement Heart Exam: Positive: Rate Normal Abdomen Exam: Positive: Normal bowel sounds, Soft, Negative: Tenderness Extremity Exam: Negative: Edema Skin Exam: Positive: Nl turgor and temperature, Rash (BUE: erythema, resolving blisters. improvement in warmth and extent of rash. ), Negative: Pruritus Assessment /Plan Problems (1) Bullous pemphigus Status: Acute Response to Treatment: Improving Problem Specific Plan: Monitor Clinically Problem Text: 11/21 WBC 15.3-favor elevation 2 steroid-no s/s infection of lesions, afebrile, t/f 11/20 decrease to 30 and changed to class I topical BID 11/17/16 Dr. Og stopped ceftriaxone and started prednisone 60 given classic BP presentation Occlusion dressing to be applied to midarms and legs. - Scheduled Atarax for itching -contiues topical triamcinolone. (2) Fall Status: Acute Problem Text: PT working c [facility] services (3) Chronic kidney disease Status: Chronic Problem Text: at baseline creatinine 1.7. (4) Hypertension Status: Chronic Problem Text: Stable on HD meds Plan/VTE VTE Prophylaxis Ordered?: Yes (heparin) Disposition plan home once safe by PT-not safe 11/19 VS, I&O, 24H, Fishbone Vital Signs/I&O Vital Signs Date Time Temp Pulse Resp B/P (MAP) Pulse Ox O2 Delivery O2 Flow Rate FiO2 11/21/16 06:00 97.0 68 20 151/70 (97) 94 11/20/16 21:10 Room Air I&O- Last 24 Hours up to 6 AM 11/21/16 06:00 Intake Total 1980 ml Output Total 3400 ml Balance -1420 ml Laboratory Data Microbiology Microbiology 11/13/16 Blood Culture - Final, Complete NO GROWTH AFTER 5 DAYS 11/13/16 Blood Culture - Final, Complete NO GROWTH AFTER 5 DAYS 11/14/16 MRSA Screen - Final, Complete Deon Arango M.D. November 21, 2016 14:00
[2016-11-21] MEDS: SIMVASTATIN 40 MG TAB PO SCH (21:26)
[2016-11-21] MEDS: TAMSULOSIN 0.4 MG CAP PO SCH (21:27)
[2016-11-21] MEDS: METOPROLOL SUCC *XL* 25MG TAB (TopROL *XL*) PO SCH (21:27)
[2016-11-21 22:00] VITALS: BP 158/74
[2016-11-22] MEDS ORDERED: TAMSULOSIN 0.4 MG CAP PO ONE (00:15)
[2016-11-22] MEDS: IPRATROPIUM 0.5MG/ALBUTEROL 2.5MG INH SOL UD 3ML (DUONEB)(J7620) NEB SCH ×4 (01:27→20:00)
[2016-11-22 05:31] LABS: MEAN CORPUSCULAR HEMOGLOBIN 30.4 pg (27.0-33.0); MEAN CORPUSCULAR HGB CONC 32.8 g/dl (32.0-36.5); MEAN CORPUSCULAR VOLUME 92.6 fl (80.0-96.0); RED CELL DISTRIBUTION WIDTH 13.4 % (11.5-14.5); WHITE BLOOD COUNT 12.5 K/mm3 (4.0-10.0)
[2016-11-22] MEDS: hydrOXYzine 50 MG TAB PO SCH ×4 (05:33→23:44)
[2016-11-22] MEDS: HEPARIN SOD (PORCINE) 5000 UNITS/ML VIAL SC SCH ×3 (05:34→21:24)
[2016-11-22 05:54] LABS: ALBUMIN 2.9 GM/DL (3.2-5.2); ALBUMIN/GLOBULIN RATIO 0.97 (1.00-1.93); BILIRUBIN,TOTAL 0.4 MG/DL (0.2-1.0); CREATININE FOR GFR 1.72 MG/DL (0.70-1.30); GLOMERULAR FILTRATION RATE 40.7 (>35); POTASSIUM SERUM 3.8 MEQ/L (3.5-5.1); TOTAL PROTEIN 5.9 GM/DL (6.4-8.2)
[2016-11-22 06:00] VITALS: BP 158/70
[2016-11-22 06:42] LABS: NUCLEATED RED BLOOD CELL 1 % (0-0)
[2016-11-22] MEDS: FUROSEMIDE 20 MG TAB PO SCH (10:15)
[2016-11-22] MEDS: MULTIVITAMINS/MINERALS THERAP 1 TAB PO SCH (10:15)
[2016-11-22] MEDS: predniSONE 10 MG TAB PO SCH (10:15)
[2016-11-22] MEDS: EUCERIN 120GM CREAM TOP SCH ×2 (10:16→21:25)
[2016-11-22] MEDS: NYSTATIN 100,000 UNITS/GM TOPICAL PWD 15 GM TOP SCH ×2 (10:16→21:26)
[2016-11-22 14:00] VITALS: BP 160/59
--- NOTE | 2016-11-22 16:10 | IPNPDOC ---
Subjective Date Seen The patient was seen on 11/22/16. Subjective Chief Complaint/HPI The patient is a 81-year-old male admitted with a reason for visit of Cellulitis. Events since last encounter Patient is doing well on current treatment. Denies itching today. No complaints or concerns. Constitutional: Denies: Chills, Fever, Malaise Eyes: Denies: Pain Skin: Reports: Rash Pulmonary: Denies: Dyspnea, Cough Cardiovascular: Denies: Chest Pain Gastrointestinal: Denies: Nausea, Vomiting, Abdominal Pain, Diarrhea, Constipation Genitourinary: Denies: Dysuria Other systems 10 point review systems otherwise negative Objective Physical Examination General Exam: Positive: Alert, Cooperative, No Acute Distress Eye Exam: Positive: Conjunctiva & lids normal Neck Exam: Positive: Supple Chest Exam: Positive: Clear to auscultation, Normal air movement Heart Exam: Positive: Rate Normal Abdomen Exam: Positive: Normal bowel sounds, Soft, Negative: Tenderness Extremity Exam: Negative: Edema Skin Exam: Positive: Nl turgor and temperature, Rash (BUE: erythema, resolving blisters. improvement in warmth and extent of rash. ~60% improved from initial presentation), Negative: Pruritus Assessment /Plan Problems (1) Bullous pemphigus Status: Acute Response to Treatment: Improving Problem Specific Plan: Monitor Clinically Problem Text: 11/22: Patient initially presented with bright red patches with overlying blisters, and was treated presumptively with antibiotics for presumed infection. However, he failed to improve on antibiotics which would easily treat bolus strep infection. His lesions were consistent with bullous pemphigoid , and antibiotics were discontinued on day 3. He was started on oral steroids in addition of topical steroids due to extent of disease. He responded very well to treatment, and his lesions are now resolving. He will acquire ongoing nursing care to help apply steroid creams. -Occlusion dressing to be applied to midarms and legs. - Scheduled Atarax for itching -contiues topical triamcinolone -Taper oral steroids (2) Fall Status: Acute Problem Text: PT working c [facility] services. Currently listed as home with services, however I think that the patient would benefit from [facility] at this point. Discussed with case management, who will help arrange for placement. (3) Chronic kidney disease Status: Chronic Problem Text: at baseline creatinine 1.7. (4) Hypertension Status: Chronic Problem Text: Stable on HD meds Plan/VTE VTE Prophylaxis Ordered?: Yes (heparin) Disposition Plan for discharge to [facility] pending placement with [facility] Vital Signs/I&O Vital Signs Date Time Temp Pulse Resp B/P (MAP) Pulse Ox O2 Delivery O2 Flow Rate FiO2 11/22/16 15:01 80 11/22/16 14:00 97.7 20 160/59 (92) 94 11/21/16 14:00 Room Air I&O- Last 24 Hours up to 6 AM 11/22/16 06:00 Intake Total 2720 ml Output Total 4100 ml Balance -1380 ml Laboratory Data 24H LABS Laboratory Tests 2 11/22/16 05:13: Neutrophils 69, Lymphocytes (Manual) 19, Monocytes (Manual) 12H, Nucleated Red Blood Cells 1H, Platelet Estimate NORMAL, Anion Gap 8, Glomerular Filtration Rate 40.7, Blood Urea Nitrogen 39H, Creatinine 1.72H, Sodium Level 140, Potassium Level 3.8, Chloride Level 105, Carbon Dioxide Level 27, Calcium Level 8.0L, Aspartate Amino Transf (AST/SGOT) 21, Alanine Aminotransferase (ALT/SGPT) 33, Alkaline Phosphatase 48, Total Bilirubin 0.4, Total Protein 5.9L, Albumin 2.9L, Albumin/Globulin Ratio 0.97L CBC/BMP Laboratory Tests 11/22/16 05:13 Calcium Level 8.0 L, Aspartate Amino Transf (AST/SGOT) 21, Alanine Aminotransferase (ALT/SGPT) 33, Alkaline Phosphatase 48, Total Bilirubin 0.4, Total Protein 5.9 L, Albumin 2.9 L Microbiology Microbiology 11/13/16 Blood Culture - Final, Complete NO GROWTH AFTER 5 DAYS 11/13/16 Blood Culture - Final, Complete NO GROWTH AFTER 5 DAYS 11/14/16 MRSA Screen - Final, Complete WILLIAM YANCEY MD November 22, 2016 16:10
[2016-11-22] MEDS: TAMSULOSIN 0.4 MG CAP PO SCH (21:24)
[2016-11-22] MEDS: METOPROLOL SUCC *XL* 25MG TAB (TopROL *XL*) PO SCH (21:25)
[2016-11-22] MEDS: SIMVASTATIN 40 MG TAB PO SCH (21:25)
[2016-11-22 22:00] VITALS: BP 120/78
[2016-11-23] MEDS: IPRATROPIUM 0.5MG/ALBUTEROL 2.5MG INH SOL UD 3ML (DUONEB)(J7620) NEB SCH ×4 (01:08→18:56)
[2016-11-23] MEDS: CLOBETASOL PROP 0.05% OINT 30 GM TOP SCH (04:24)
[2016-11-23] MEDS: hydrOXYzine 50 MG TAB PO SCH ×3 (05:33→17:08)
[2016-11-23] MEDS: HEPARIN SOD (PORCINE) 5000 UNITS/ML VIAL SC SCH ×3 (05:33→21:45)
[2016-11-23 06:00] VITALS: BP 160/82
[2016-11-23] MEDS: predniSONE 10 MG TAB PO SCH (08:36)
[2016-11-23] MEDS: NYSTATIN 100,000 UNITS/GM TOPICAL PWD 15 GM TOP SCH ×2 (08:36→20:50)
[2016-11-23] MEDS: MULTIVITAMINS/MINERALS THERAP 1 TAB PO SCH (08:36)
[2016-11-23] MEDS: FUROSEMIDE 20 MG TAB PO SCH (08:36)
[2016-11-23] MEDS: EUCERIN 120GM CREAM TOP SCH ×2 (08:37→20:49)
--- NOTE | 2016-11-23 19:28 | DSES ---
DATE OF ADMISSION: 11/13/2016 DATE OF SNF: 11/23/2016 BRIEF HISTORY AND PHYSICAL: The patient is a 81-year-old patient of Dr. Cabrera who presented the emergency room with a rash and lesions on both upper extremities that he thinks is been present for about 4 weeks. The patient has hygiene issues and does not shower frequently and was seen by Dr. Tsang who prescribed doxycycline as well as treatment for scabies. PAST MEDICAL HISTORY: Significant for chronic kidney disease stage III, benign prostate hyperplasia (BPH), hyperlipidemia, hypertension, congestive heart failure, chronic obstructive pulmonary disease (COPD), Dupuytren's contractions, generalized anxiety. Tubular adenoma of the colon, chronic anemia, obesity, chronic back pain with right radiculopathy and spinal stenosis to the lumbar region. LABORATORY: His pertinent labs on admission white count 12, hemoglobin 15, platelets 204,000. Sodium 141, potassium 4, BUN 17, creatinine 1.75, glucose 94. Blood cultures were obtained and were negative. HOSPITAL COURSE: The patient was initially admitted for a skin infection, possibly cellulitis versus erysipelas and was put on ceftaroline. Ultimately he failed treatment with antibiotics and it was felt that his skin lesions were in fact bullous pemphigoid. Antibiotics were discontinued. He has been started on oral steroids and topical steroids due to the extent of disease and wound care with a variety of creams and occlusive dressings applied to his mid arms and legs. PLAN: 1. Taper the oral prednisone gradually and continue with the wound care. He will need placement because of the complexity of the wound care and inability to care for herself and his niece who is his healthcare proxy would also not likely be able to manage the complex nature of his wounds. Also he is unsteady requiring assistance with walking and walking with a walker. He will be made show he will be made [facility] facility (SNF) today to continue his wound care and continue with physical therapy. 2. Fall. He fell and is working with physical therapy to try to regain his strength but would benefit from [facility] and will be placed for subacute rehab at this time. 3. Chronic kidney disease. Baseline creatinine 1.7 and remained stable. 4. Hypertension, chronic and stable on his usual home medications. DISPOSITION: The patient was made SNF today. Medications will be dictated the time of his discharge. DISCHARGE DIAGNOSES: 1. Acute outbreak of at this is a bullus pemphigoid. 2. Unsteady gait with history of fall. 3. Chronic kidney disease. 4. Hypertension. My preceptor for this patient encounter was Dr. Kearney. The preceptor was physically present in the building during the encounter and was fully available. As needed, all aspects of the patient interview, examination, medical decision making process, and medical care plan development were reviewed and approved by the preceptor. The preceptor is aware and concurs with the plan as stated in the body of this note and will attest to such by his/her cosignature.
[2016-11-23] MEDS: TAMSULOSIN 0.4 MG CAP PO SCH (20:47)
[2016-11-23] MEDS: METOPROLOL SUCC *XL* 25MG TAB (TopROL *XL*) PO SCH (20:49)
[2016-11-23] MEDS: SIMVASTATIN 40 MG TAB PO SCH (20:49)
[2016-11-24] MEDS: hydrOXYzine 50 MG TAB PO SCH ×5 (00:22→23:20)
[2016-11-24] MEDS: IPRATROPIUM 0.5MG/ALBUTEROL 2.5MG INH SOL UD 3ML (DUONEB)(J7620) NEB SCH ×4 (01:12→19:37)
[2016-11-24] MEDS: HEPARIN SOD (PORCINE) 5000 UNITS/ML VIAL SC SCH ×3 (05:28→21:28)
[2016-11-24 06:00] VITALS: BP 164/74
[2016-11-24] MEDS: MULTIVITAMINS/MINERALS THERAP 1 TAB PO SCH (09:16)
[2016-11-24] MEDS: NYSTATIN 100,000 UNITS/GM TOPICAL PWD 15 GM TOP SCH ×2 (09:17→21:30)
[2016-11-24] MEDS: EUCERIN 120GM CREAM TOP SCH ×2 (09:17→21:29)
[2016-11-24] MEDS: predniSONE 10 MG TAB PO SCH (09:17)
[2016-11-24] MEDS: FUROSEMIDE 20 MG TAB PO SCH (09:17)
[2016-11-24] MEDS: CLOBETASOL PROP 0.05% OINT 30 GM TOP SCH (09:18)
[2016-11-24 20:00] VITALS: BP 154/73
[2016-11-24] MEDS: SIMVASTATIN 40 MG TAB PO SCH (21:28)
[2016-11-24] MEDS: TAMSULOSIN 0.4 MG CAP PO SCH (21:28)
[2016-11-24] MEDS: METOPROLOL SUCC *XL* 25MG TAB (TopROL *XL*) PO SCH (21:29)
[2016-11-25] MEDS: hydrOXYzine 50 MG TAB PO SCH ×5 (00:20→23:18)
[2016-11-25] MEDS: IPRATROPIUM 0.5MG/ALBUTEROL 2.5MG INH SOL UD 3ML (DUONEB)(J7620) NEB SCH ×4 (01:24→19:55)
[2016-11-25] MEDS: HEPARIN SOD (PORCINE) 5000 UNITS/ML VIAL SC SCH ×3 (05:35→21:12)
[2016-11-25 06:20] VITALS: BP 142/78
[2016-11-25] MEDS: MULTIVITAMINS/MINERALS THERAP 1 TAB PO SCH (09:03)
[2016-11-25] MEDS: predniSONE 10 MG TAB PO SCH (09:03)
[2016-11-25] MEDS: EUCERIN 120GM CREAM TOP SCH ×2 (09:04→21:13)
[2016-11-25] MEDS: CLOBETASOL PROP 0.05% OINT 30 GM TOP SCH (09:04)
[2016-11-25] MEDS: FUROSEMIDE 20 MG TAB PO SCH (09:04)
[2016-11-25] MEDS: NYSTATIN 100,000 UNITS/GM TOPICAL PWD 15 GM TOP SCH ×2 (09:05→21:12)
[2016-11-25 20:20] VITALS: BP 138/78
[2016-11-25 21:13] VITALS: BP 154/73
[2016-11-25] MEDS: SIMVASTATIN 40 MG TAB PO SCH (21:13)
[2016-11-25] MEDS: TAMSULOSIN 0.4 MG CAP PO SCH (21:13)
[2016-11-25] MEDS: METOPROLOL SUCC *XL* 25MG TAB (TopROL *XL*) PO SCH (21:13)
[2016-11-26] MEDS: IPRATROPIUM 0.5MG/ALBUTEROL 2.5MG INH SOL UD 3ML (DUONEB)(J7620) NEB SCH ×2 (01:30→07:39)
[2016-11-26] MEDS: HEPARIN SOD (PORCINE) 5000 UNITS/ML VIAL SC SCH ×2 (05:04→05:07)
[2016-11-26] MEDS: hydrOXYzine 50 MG TAB PO SCH ×2 (05:04→12:00)
[2016-11-26 05:45] VITALS: BP 172/78
[2016-11-26] MEDS: FUROSEMIDE 20 MG TAB PO SCH (05:59)
[2016-11-26] MEDS: MULTIVITAMINS/MINERALS THERAP 1 TAB PO SCH (09:11)
[2016-11-26] MEDS: EUCERIN 120GM CREAM TOP SCH (09:11)
[2016-11-26] MEDS: predniSONE 10 MG TAB PO SCH (09:11)
[2016-11-26] MEDS: CLOBETASOL PROP 0.05% OINT 30 GM TOP SCH (09:12)
[2016-11-26] MEDS: NYSTATIN 100,000 UNITS/GM TOPICAL PWD 15 GM TOP SCH (09:12)
[2016-11-26] MEDS ORDERED: CLOB05OI TOP (12:10)
[2016-11-26] MEDS ORDERED: EUCECRE3 TOP (12:10)
[2016-11-26] MEDS ORDERED: BACI50OI TOP (12:10)
[2016-11-26] MEDS ORDERED: ACET65TA PO (12:10)
[2016-11-26] MEDS ORDERED: NYST10PW TOP (12:10)
[2016-11-26] MEDS ORDERED: DIPH25CA PO (12:10)
[2016-11-26] MEDS ORDERED: HYDRO50TAB PO (12:10)
[2016-11-26] MEDS ORDERED: IPRASOL4 NEB ×2 (12:10)
[2016-11-26] MEDS ORDERED: PRED10TA PO (12:10)
--- NOTE | 2016-11-26 12:27 | IPN ---
DATE: 11/26/2016 Jose was discharged on 11/26/2016 to a care home. No change in status except for as below. I was asked by the rounding physician healthcare administrative assistant to assess Mr. Beltran for genitourinary issues. Per nursing staff, he had a swollen foreskin. He apparently had some traction on the catheter leading to some asymmetric swelling of the foreskin. It was not fully retractile. On examination, there is no cellulitis. There is some edema asymmetric on the foreskin and a bit of thin drainage from lack of recent cleaning. There was some pain upon attempted retraction. I did not retract further due to discomfort. At this point, we are going to apply Bacitracin ointment twice a day. The nursing staff is going to irrigate under the foreskin for hygiene. With the [place] reposition, the edema should resolve and then normal genitourinary hygiene can commence.
[2016-11-26] MEDS ORDERED: BACITRACIN OINT 30GM TOP SCH (21:00)
== END 2016-11-26 13:44 | DRG 596 ==
LOC: M ED 19:45 → M ED INP 22:01 → M MSPAV 23:27
PROVIDERS: ADMIT Hospitalist; ATTEND Family Medicine
DX: L12.0 Bullous pemphigoid (principal); I13.0 Hypertensive heart and chronic kidney disease with heart failure and stage 1 through stage 4 chronic kidney disease, or unspecified chronic kidney disease; I50.32 Chronic diastolic (congestive) heart failure; L03.113 Cellulitis of right upper limb; N18.3 Chronic kidney disease, stage 3 (moderate); N40.0 Benign prostatic hyperplasia without lower urinary tract symptoms; E78.5 Hyperlipidemia, unspecified; J44.9 Chronic obstructive pulmonary disease, unspecified; M72.0 Palmar fascial fibromatosis [Dupuytren]; D64.9 Anemia, unspecified; E66.9 Obesity, unspecified; M48.06 Spinal stenosis, lumbar region; F41.1 Generalized anxiety disorder; B86 Scabies; R26.81 Unsteadiness on feet; F17.210 Nicotine dependence, cigarettes, uncomplicated; A46 Erysipelas; D72.829 Elevated white blood cell count, unspecified; L29.9 Pruritus, unspecified; Z79.899 Other long term (current) drug therapy; Z88.0 Allergy status to penicillin; Z86.010 Personal history of colon polyps

== ENCOUNTER → 2016-12-07 | Outpatient (REF) ==
[~2016-12-07] MED LIST changes: +ACET65TA PO; +BACI50OI TOP; +CLOB05OI TOP; +DIPH25CA PO; +DOXY100T PO; +EUCECRE3 TOP; +FURO20TA2 PO; +HYDRO50TAB PO; +IPRASOL4 NEB; +NYST10PW TOP; +PERM5CR EXT
== END ==
LOC: SKLAB3 13:24
PROVIDERS: ATTEND Internal Medicine
DX: R33.9 Retention of urine, unspecified (principal)

== ENCOUNTER → 2016-12-08 | Outpatient (REF) | payer MEDICARE, MEDICAID ==
[~2016-12-08] MED LIST changes: -ACET65TA PO; +LEVA1TAB PO; -LEVA250T PO; +MAPA325T3 PO; +METO1TAB32 PO; -METO25TA74 PO; -PRED10TA PO; +PRED10TA2 PO; -PROA1AER INH; +PROAAER10 INH
[2016-12-08 13:43] LABS: BASO % 0.4 % (0.0-1.0); EOS # 0.2 K/mm3 (0.0-0.50); EOS % 1.5 % (0.0-3.0); LARGE UNSTAINED CELL # 0.1 K/mm3 (0.0-0.4); LYMPH # 0.8 K/mm3 (1.5-4.5); LYMPH % 5.1 % (24.0-44.0); MEAN CORPUSCULAR HEMOGLOBIN 31.9 pg (27.0-33.0); MEAN CORPUSCULAR HGB CONC 34.4 g/dl (32.0-36.5); MEAN CORPUSCULAR VOLUME 92.7 fl (80.0-96.0); MONO # 0.5 K/mm3 (0.0-0.8); MONO % 4.1 % (0.0-5.0); NEUTROPHILS # 11.2 K/mm3 (1.8-7.7); NEUTROPHILS % 87.9 % (36.0-66.0); PLATELET COUNT, AUTOMATED 119 k/mm3 (150-450); RED CELL DISTRIBUTION WIDTH 13.4 % (11.5-14.5); WHITE BLOOD COUNT 12.7 K/mm3 (4.0-10.0)
[2016-12-08 16:14] LABS: CALCIUM LEVEL 8.4 MG/DL (8.8-10.2); CREATININE FOR GFR 1.75 MG/DL (0.70-1.30); GLOMERULAR FILTRATION RATE 39.9 (>35); POTASSIUM SERUM 3.7 MEQ/L (3.5-5.1)
== END ==
LOC: SKLAB3 12:43
PROVIDERS: ATTEND Internal Medicine
DX: R50.9 Fever, unspecified (principal)

== ENCOUNTER → 2016-12-10 | Outpatient (REF) ==
[~2016-12-10] MED LIST changes: +ACET65TA PO; -LEVA1TAB PO; +LEVA250T PO; -MAPA325T3 PO; -METO1TAB32 PO; +METO25TA74 PO; +PRED10TA PO; -PRED10TA2 PO; +PROA1AER INH; -PROAAER10 INH
[2016-12-10 11:43] LABS: BASO % 0.2 % (0.0-1.0); EOS # 0.8 K/mm3 (0.0-0.50); EOS % 6.3 % (0.0-3.0); LARGE UNSTAINED CELL # 0.2 K/mm3 (0.0-0.4); LARGE UNSTAINED CELL % 1.4 % (0.0-4.0); LYMPH # 0.8 K/mm3 (1.5-4.5); LYMPH % 4.5 % (24.0-44.0); MEAN CORPUSCULAR HEMOGLOBIN 31.3 pg (27.0-33.0); MEAN CORPUSCULAR HGB CONC 33.6 g/dl (32.0-36.5); MONO # 0.4 K/mm3 (0.0-0.8); MONO % 3.1 % (0.0-5.0); NEUTROPHILS # 10.8 K/mm3 (1.8-7.7); NEUTROPHILS % 84.5 % (36.0-66.0); PLATELET COUNT, AUTOMATED 109 k/mm3 (150-450); RED CELL DISTRIBUTION WIDTH 13.3 % (11.5-14.5); WHITE BLOOD COUNT 12.8 K/mm3 (4.0-10.0)
[2016-12-10 12:12] LABS: CALCIUM LEVEL 8.4 MG/DL (8.8-10.2); CREATININE FOR GFR 1.74 MG/DL (0.70-1.30); GLOMERULAR FILTRATION RATE 40.2 (>35); POTASSIUM SERUM 3.8 MEQ/L (3.5-5.1)
== END ==
LOC: SKLAB3 10:42
PROVIDERS: ATTEND Internal Medicine
DX: R50.9 Fever, unspecified (principal)

== ENCOUNTER → 2016-12-13 | Outpatient (REF) ==
[2016-12-13 08:35] LABS: MEAN CORPUSCULAR HEMOGLOBIN 31.3 pg (27.0-33.0); MEAN CORPUSCULAR HGB CONC 33.6 g/dl (32.0-36.5); MEAN CORPUSCULAR VOLUME 93.1 fl (80.0-96.0); RED CELL DISTRIBUTION WIDTH 13.1 % (11.5-14.5); WHITE BLOOD COUNT 9.9 K/mm3 (4.0-10.0)
[2016-12-13 09:15] LABS: CALCIUM LEVEL 8.4 MG/DL (8.8-10.2); CREATININE FOR GFR 1.53 MG/DL (0.70-1.30); GLOMERULAR FILTRATION RATE 46.6 (>35); POTASSIUM SERUM 4.6 MEQ/L (3.5-5.1)
== END ==
LOC: SKLAB3 12:55
PROVIDERS: ATTEND Internal Medicine
DX: E86.0 Dehydration (principal)

== ENCOUNTER → 2016-12-24 | Outpatient (REF) | payer MEDICAID, MEDICARE ==
[~2016-12-24] MED LIST changes: -ACET65TA PO; +LEVA1TAB PO; -LEVA250T PO; +MAPA325T3 PO; +METO1TAB32 PO; -METO25TA74 PO; -PRED10TA PO; +PRED10TA2 PO; -PROA1AER INH; +PROAAER10 INH
[2016-12-24 08:31] LABS: MEAN CORPUSCULAR HGB CONC 33.4 g/dl (32.0-36.5); MEAN CORPUSCULAR VOLUME 92.8 fl (80.0-96.0); RED CELL DISTRIBUTION WIDTH 13.3 % (11.5-14.5); WHITE BLOOD COUNT 12.5 K/mm3 (4.0-10.0)
[2016-12-24 08:53] LABS: CALCIUM LEVEL 8.3 MG/DL (8.8-10.2); CREATININE FOR GFR 1.49 MG/DL (0.70-1.30); GLOMERULAR FILTRATION RATE 48.1 (>35); POTASSIUM SERUM 4.3 MEQ/L (3.5-5.1)
== END ==
LOC: SKLAB3 01:30
PROVIDERS: ATTEND Internal Medicine
DX: N18.9 Chronic kidney disease, unspecified (principal); D64.9 Anemia, unspecified; I12.9 Hypertensive chronic kidney disease with stage 1 through stage 4 chronic kidney disease, or unspecified chronic kidney disease

== ENCOUNTER → 2017-02-19 | Outpatient (REF) | LOC: SKLAB3 12:06 | PROVIDERS: ATTEND Internal Medicine | DX: R30.9 Painful micturition, unspecified (principal); R41.0 Disorientation, unspecified ==